=== PATIENT | female | born 1935 | race Caucasian/White ===

== ENCOUNTER 2016-06-29 14:43 | Outpatient (RCR) | payer MEDICARE, OTHER ==
[2016-05-13 14:30] LABS: BASOPHILS % (AUTO) 0 % (0-10); EOSINOPHILS # (AUTO) 0.1 10^3/uL (0.0-0.3); EOSINOPHILS % (AUTO) 1 % (0-10); LYMPHOCYTES # (AUTO) 1.4 X 10^3 (1.0-4.0); LYMPHOCYTES % (AUTO) 15 % (12-44); MEAN CORPUSCULAR HEMOGLOBIN 31 PG (25-34); MEAN CORPUSCULAR HGB CONC 35 G/DL (32-36); MEAN CORPUSCULAR VOLUME 89 FL (80-99); MEAN PLATELET VOLUME 9.3 FL (7.4-10.4); MONOCYTES # (AUTO) 0.8 X 10^3 (0.0-1.0); MONOCYTES % (AUTO) 9 % (0-12); NEUTROPHILS # (AUTO) 6.8 X 10^3 (1.8-7.8); NEUTROPHILS % (AUTO) 75 % (42-75); PLATELET COUNT 277 10^3/uL (130-400); RED BLOOD COUNT 4.56 10^6/uL (4.35-5.85); RED CELL DISTRIBUTION WIDTH 13.8 % (10.0-14.5); WHITE BLOOD COUNT 9.1 10^3/uL (4.3-11.0)
[2016-05-13 15:01] LABS: ALBUMIN 3.8 G/DL (3.2-4.5); BILIRUBIN,TOTAL 0.6 MG/DL (0.1-1.0); CALCIUM 9.4 MG/DL (8.5-10.1); CREATININE SERUM 1.01 MG/DL (0.60-1.30); POTASSIUM 3.7 MMOL/L (3.6-5.0); TOTAL PROTEIN 6.4 G/DL (6.4-8.2)
[2016-05-16 17:23] LABS: THYROID STIMULATING HORMONE 0.37 UIU/ML (0.35-4.94)
[~2016-06-29 14:43] MED LIST: AMLO5TAB2 PO; ASP81TEC PO; ATEN50TA PO; B-12 INJECTIONS; CALTRATE 600 +1 EACH PO; CHOL200041 PO; CHOL5000 PO; CNC1KV IJ; DICY10CA12 PO; ENOX30DI9 SQ; FLUC200T45 PO; GABA-486 PO; GUAI-557 PO; HYDR-707 PO; IRBE75TA10 PO; MESA1.2T PO; METO-272 PO; MSL400TEC PO; MULT-142 PO; MULT1CAP27 PO; RANI150T11 PO; RANI150T90 PO; RANI300T4 PO; TRAM50TA2 PO
[2016-06-29 14:52] LABS: BASOPHILS # (AUTO) 0.1 10^3/uL (0.0-0.1); BASOPHILS % (AUTO) 1 % (0-10); EOSINOPHILS # (AUTO) 0.6 10^3/uL (0.0-0.3); EOSINOPHILS % (AUTO) 9 % (0-10); LYMPHOCYTES # (AUTO) 1.4 X 10^3 (1.0-4.0); LYMPHOCYTES % (AUTO) 23 % (12-44); MEAN CORPUSCULAR HEMOGLOBIN 32 PG (25-34); MEAN CORPUSCULAR HGB CONC 34 G/DL (32-36); MEAN CORPUSCULAR VOLUME 94 FL (80-99); MEAN PLATELET VOLUME 9.2 FL (7.4-10.4); MONOCYTES # (AUTO) 0.7 X 10^3 (0.0-1.0); MONOCYTES % (AUTO) 12 % (0-12); NEUTROPHILS # (AUTO) 3.4 X 10^3 (1.8-7.8); NEUTROPHILS % (AUTO) 55 % (42-75); PLATELET COUNT 275 10^3/uL (130-400); RED BLOOD COUNT 4.11 10^6/uL (4.35-5.85); WHITE BLOOD COUNT 6.2 10^3/uL (4.3-11.0)
[2016-06-29 15:15] LABS: ALBUMIN 3.6 G/DL (3.2-4.5); BILIRUBIN,TOTAL 0.4 MG/DL (0.1-1.0); CALCIUM 9.6 MG/DL (8.5-10.1); CREATININE SERUM 1.15 MG/DL (0.60-1.30); POTASSIUM 4.7 MMOL/L (3.6-5.0)
== END 2016-08-11 | disposition home or self-care (01) ==
LOC: ONC 14:43
PROVIDERS: ATTEND Internal Medicine Hematology & Oncology
DX: C50.812 Malignant neoplasm of overlapping sites of left female breast (principal); M81.0 Age-related osteoporosis without current pathological fracture; E53.8 Deficiency of other specified B group vitamins; I10 Essential (primary) hypertension; E78.5 Hyperlipidemia, unspecified; M19.90 Unspecified osteoarthritis, unspecified site; Z79.899 Other long term (current) drug therapy
CPT/HCPCS: 36415; 80053; 84439; 84443; 85025; 99213; 99214

== ENCOUNTER 2016-10-12 10:32 | Outpatient (RCR) | payer MEDICARE, OTHER ==
--- OUTSIDE RECORDS SUMMARY | 2016-10-12 10:35 | XMS REPORT | Continuity of Care Document ---
Author Author [facility] Organization [facility] Address Unknown Phone Unavailable Care Team Providers Care Data Operations Leader Name Role Phone BREA LUCAS MD PCP Insurance Providers Payer Name Policy Number Subscriber Name Relationship [employer] [id number] Michael Gifford 18 Self / Same As Patient Enter Insurance Name [id number] Michael Gifford 18 Self / Same As Patient Advance Directives Directive Response Recorded Date/Time Advance Directives No 06/14/16 4:00pm Health Care Power of Steel Shot Header Operator No 06/14/16 4:00pm Organ Donor No 06/14/16 4:00pm Resuscitation Status Full Code 06/14/16 4:00pm Chief Complaint and Reason for Visit Chief Complaint LEFT BREAST CANCER Reason for Visit Radicular pain of right lower extremity Problems Active Problems Medical Problem Onset Date Status Acute exacerbation of chronic low back pain Unknown Acute Breast cancer, left Unknown Acute Radicular pain of right lower extremity Unknown Acute Medications Current Home Medications Medication Dose Units Route Directions Days/Qty Instructions Start Date Calcium Carbonate/Vitamin D3 1 Each 1 Tab Oral Daily 12/03/11 Metoprolol Succinate 50 Mg 50 Mg Oral Daily 11/19/15 Ranitidine Hcl 150 Mg 150 Mg Oral Twice A Day 11/19/15 Irbesartan 75 Mg 75 Mg Oral Daily 11/19/15 Cyanocobalamin 1,000 Mcg/Ml 1,000 Mcg Injection Monthly 11/19/15 Cholecalciferol (Vitamin D3) 5,000 Unit 5,000 Unit Oral Every Other Day 11/19/15 Guaifenesin/Dextromethorphan 118 Ml 2 Tsp Oral Bedtime 11/19/15 Gabapentin 100 Mg 100 Mg Oral Bedtime 11/19/15 Multivitamin W-Minerals/Lutein 1 Each 1 Tab Oral Twice A Day Tramadol Hcl 50 Mg 50 Mg Oral Every 12 Hours as needed for Pain 20 04/23 Enoxaparin Sodium 30 Mg/0.3 Ml 30 Mg Sub-Q Daily 14 06/16/16 Past Home Medications Medication Directions Ordered Status Aspirin 81 Mg Tabec, 81 Mg Oral Daily 12/03/11 Discontinued Ranitidine Hcl 300 Mg Tablet, 150 Mg Oral Daily 12/03/11 Discontinued [B-12 Injections] , W4sivyl 12/03/11 Discontinued Multivitamins 1 Each Capsule, 1 Each Oral Daily 12/03/11 Discontinued Cholecalciferol (Vitamin D3) 2,000 Unit Tablet, 5000 Unit Oral Daily Discontinued Atenolol 50 Mg Tablet, 1 Each Oral Daily 12/03/11 Discontinued Amlodipine Besylate (Norvasc 5 Mg) 5 Mg Tablet, 5 Mg Oral Daily 12/03/11 Discontinued Mesalamine 1.2 Gm Tablet.dr, 1.2 Gm Oral Daily 12/03/11 Discontinued Dicyclomine Hcl 10 Mg Capsule, 10 Mg Oral Twice A Day 12/03/11 Discontinued Mesalamine 400 Mg Tab, 800 Mg Oral Three Times A Day 12/07/11 Discontinued Fluconazole 200 Mg Tablet, 2.5 Each Oral Daily 12/07/11 Discontinued Acetaminophen/Hydrocodone Bitart 1 Each Tablet, 1 Each Oral Q4hr Prn Discontinued Gabapentin 100 Mg Capsule, 100 Mg Oral Twice A Day 11/19/15 Discontinued Ranitidine Hcl (Ranitidine) 150 Mg Tablet, 150 Mg Oral Bedtime as needed for Heartburn 11/19/15 Discontinued Social History Social History Problem Response Recorded Date/Time Alcohol Use Denies Use 11/18/2015 10:45pm Recreational Drug Use No 11/18/2015 10:45pm Recent Foreign Travel No 06/14/2016 4:00pm Recent Infectious Disease Exposure No 06/14/2016 4:00pm Smoking Status Never a Smoker 06/14/2016 4:00pm Recent Hopitalizations No 06/14/2016 4:00pm Query Response Start Date Stop Date Smoking Status Never a Smoker Hospital Discharge Instructions Patient Instructions Physician Instructions New, Converted or Re-Newed RX: RX on Chart Plan of Care/Instructions/FU: Home health to help with changing the dressing with fluffy gauze every other day. Lovenox 30 mg subcut daily for 2 weeks. Drain care teaching. My nurse will call to arrange f/U Activity as Tolerated: Yes Discharge Diet: No Restrictions Care Plan Patient Instructions:: Home health to help with changing the dressing with fluffy gauze everyother day. Lovenox 30 mg subcut daily for 2 weeks. Drain care teaching. Mynurse will call to arrange f/U Plan of Care Discharge Date 06/16/16 4:01pm Disposition IP-HIM TO CODE Instructions/Education Provided Mastectomy Prescriptions See Medication Section Referrals (Unspecified) - Reason(s) for Referral: FOLLOW UP WITH DR LUCAS ON 07/05/16 AT 10:15 (Unspecified) - Reason(s) for Referral: FOLLOW UP WITH DR BOSS ON 06/29/16 AT 2:45 Care Plan and Goals See Discharge Instructions Section Functional Status Query Response Date Recorded Patient Orientation Person Place Time Situation June 17, 2016 9:11am Comprehension Ability Understands Concepts June 15, 2016 8:00am Allergies, Adverse Reactions, Alerts Allergen Type Severity Reaction Status Last Updated meperidine HCl Allergy Unknown Active 11/18/15 Immunizations Name Given Type FLU TRIvalent 5 years - Adult 06/15/16 Administered Vital Signs Acute Vital Signs Vital Response Date/Time Temperature (Fahrenheit) 97.8 degrees F (97.6 - 99.5) 06/16/2016 3:58pm Temperature (Calculated Celsius) 36.05640 degrees C (36.4 - 37.5) 06/16/2016 8:00am Temperature Source Tympanic 06/16/2016 3:58pm Pulse Rate (adult) 69 bpm (60 - 90) 06/16/2016 3:58pm Respiratory Rate 20 bpm (12 - 24) 06/16/2016 3:58pm O2 Sat by Pulse Oximetry 97 % (88 - 100) 06/16/2016 3:58pm Blood Pressure 161/85 mm Hg 06/16/2016 3:58pm Blood Pressure Mean 110 mm Hg 06/16/2016 9:30am Pain Numeric Pain Scale 0-No Pain 06/16/2016 3:58pm Height (Feet) 5 feet 06/14/2016 4:00pm Height (Inches) 2.00 inches 06/14/2016 4:00pm Height (Calculated Centimeters) 157.243906 cm 06/14/2016 4:00pm Weight (Pounds) 136 pounds 06/14/2016 4:00pm Weight (Ounces) 9.0 oz 06/14/2016 4:00pm Weight (Calculated Grams) 01817.71 gm 06/14/2016 4:00pm Weight (Calculated Kilograms) 61.872590 kilograms 06/14/2016 4:00pm Calculated BMI 25.0 06/14/2016 4:00pm Results Laboratory Results Test Name Result Units Flags Reference Collection Date/Time Result Date/ Time Comments White Blood Count 9.1 10^3/uL 4.3-11.0 05/13/2016 2:24pm 05/13/2016 2: 38pm Red Blood Count 4.56 10^6/uL 4.35-5.85 05/13/2016 2:24pm 05/13/2016 2: 38pm Hemoglobin 14.3 G/DL 11.5-16.0 05/13/2016 2:24pm 05/13/2016 2:38pm Hematocrit 41 % 35-52 05/13/2016 2:24pm 05/13/2016 2:38pm Mean Corpuscular Volume 89 FL 80-99 05/13/2016 2:24pm 05/13/2016 2: 38pm Mean Corpuscular Hemoglobin 31 PG 25-34 05/13/2016 2:24pm 05/13/2016 2: 38pm Mean Corpuscular Hemoglobin Concent 35 G/DL 32-36 05/13/2016 2:24pm 01/2016 2:38pm Red Cell Distribution Width 13.8 % 10.0-14.5 05/13/2016 2:24pm 2015 2:38pm Platelet Count 277 10^3/uL 130-400 05/13/2016 2:24pm 05/13/2016 2:38pm Mean Platelet Volume 9.3 FL 7.4-10.4 05/13/2016 2:24pm 05/13/2016 2: 38pm Neutrophils (%) (Auto) 75 % 42-75 05/13/2016 2:24pm 05/13/2016 2:38pm Lymphocytes (%) (Auto) 15 % 12-44 05/13/2016 2:24pm 05/13/2016 2:38pm Monocytes (%) (Auto) 9 % 0-12 05/13/2016 2:24pm 05/13/2016 2:38pm Eosinophils (%) (Auto) 1 % 0-10 05/13/2016 2:24pm 05/13/2016 2:38pm Basophils (%) (Auto) 0 % 0-10 05/13/2016 2:24pm 05/13/2016 2:38pm Neutrophils # (Auto) 6.8 X 10^3 1.8-7.8 05/13/2016 2:24pm 05/13/2016 2: 38pm Lymphocytes # (Auto) 1.4 X 10^3 1.0-4.0 05/13/2016 2:24pm 05/13/2016 2: 38pm Monocytes # (Auto) 0.8 X 10^3 0.0-1.0 05/13/2016 2:24pm 05/13/2016 2: 38pm Eosinophils # (Auto) 0.1 10^3/uL 0.0-0.3 05/13/2016 2:24pm 05/13/2016 2 :38pm Basophils # (Auto) 0.0 10^3/uL 0.0-0.1 05/13/2016 2:24pm 05/13/2016 2: 38pm Sodium Level 143 MMOL/L 135-145 05/13/2016 2:30pm 05/13/2016 3:05pm Potassium Level 3.7 MMOL/L 3.6-5.0 05/13/2016 2:30pm 05/13/2016 3:05pm Chloride Level 109 MMOL/L H 98-107 05/13/2016 2:30pm 05/13/2016 3:05pm Carbon Dioxide Level 22 MMOL/L 21-32 05/13/2016 2:30pm 05/13/2016 3: 05pm Anion Gap 12 MMOL/L 5-14 05/13/2016 2:30pm 05/13/2016 3:05pm Blood Urea Nitrogen 16 MG/DL 7-18 05/13/2016 2:30pm 05/13/2016 3:05pm Creatinine 1.01 MG/DL 0.60-1.30 05/13/2016 2:30pm 05/13/2016 3:05pm BUN/Creatinine Ratio 16 05/13/2016 2:30pm 05/13/2016 3:05pm Estimat Glomerular Filtration Rate 53 05/13/2016 2:30pm 05/13/2016 3:05pm GFR INTERPRETIVE DATA UNITS FOR ESTIMATED GFR (eGFR): mL/min/1.73 M2 REFERENCE RANGE FOR ESTIMATED GFR (eGFR) eGFR NORMAL eGFR >60 MODERATELY DECREASED eGFR 30-59 SEVERLY DECREASED eGFR 15-29 KIDNEY FAILURE <15 (OR DIALYSIS) Glucose Level 96 MG/DL 70-105 05/13/2016 2:30pm 05/13/2016 3:05pm Calcium Level 9.4 MG/DL 8.5-10.1 05/13/2016 2:30pm 05/13/2016 3:05pm Total Bilirubin 0.6 MG/DL 0.1-1.0 05/13/2016 2:30pm 05/13/2016 3:05pm Alkaline Phosphatase 64 U/L 40-136 05/13/2016 2:30pm 05/13/2016 3:05pm Aspartate Amino Transf (AST/SGOT) 14 U/L 5-34 05/13/2016 2:30pm 2015 3:05pm Alanine Aminotransferase (ALT/SGPT) 23 U/L 0-55 05/13/2016 2:30pm 05/13 3:05pm Total Protein 6.4 G/DL 6.4-8.2 05/13/2016 2:30pm 05/13/2016 3:05pm Albumin 3.8 G/DL 3.2-4.5 05/13/2016 2:30pm 05/13/2016 3:05pm Thyroid Stimulating Hormone (TSH) 0.37 UIU/ML 0.35-4.94 05/13/2016 2: 30pm 05/16/2016 5:26pm Free Thyroxine 1.23 NG/DL 0.70-1.48 05/13/2016 2:30pm 05/16/2016 5: 26pm Pending Microbiology Results Procedure Source Collection Date/Time Procedures Procedure Status Date Provider(s) Modified radical mastectomy of left breast Completed 06/14/16 JOSE DELA CRUZ MD Encounters Encounter Location Arrival/Admit Date Discharge/Depart Date Attending Provider Discharged Inpatient [facility] 06/14/16 11:01am 4:01pm JOSE DELA CRUZ MD Departed Clinic [facility] 06/11/16 10:13am 06/11/16 10: 58am JOSE DELA CRUZ MD Registered Recurring [facility] 05/28/16 10:41am ELINOR BOSS MD Registered Clinic [facility] 05/25/16 1:45pm ELINOR BOSS MD Registered Clinic [facility] 05/18/16 10:08am ELINOR BOSS MD Recent Diagnosis Radicular pain of right lower extremity
[2016-10-12 11:26] LABS: BASOPHILS % (AUTO) 1 % (0-10); EOSINOPHILS # (AUTO) 0.2 10^3/uL (0.0-0.3); EOSINOPHILS % (AUTO) 3 % (0-10); LYMPHOCYTES # (AUTO) 1.3 X 10^3 (1.0-4.0); LYMPHOCYTES % (AUTO) 21 % (12-44); MEAN CORPUSCULAR HEMOGLOBIN 32 PG (25-34); MEAN CORPUSCULAR HGB CONC 35 G/DL (32-36); MEAN CORPUSCULAR VOLUME 92 FL (80-99); MEAN PLATELET VOLUME 9.2 FL (7.4-10.4); MONOCYTES # (AUTO) 0.7 X 10^3 (0.0-1.0); MONOCYTES % (AUTO) 11 % (0-12); NEUTROPHILS # (AUTO) 4.1 X 10^3 (1.8-7.8); NEUTROPHILS % (AUTO) 65 % (42-75); PLATELET COUNT 279 10^3/uL (130-400); RED BLOOD COUNT 4.18 10^6/uL (4.35-5.85); RED CELL DISTRIBUTION WIDTH 13.7 % (10.0-14.5); WHITE BLOOD COUNT 6.3 10^3/uL (4.3-11.0)
[2016-10-12 12:22] LABS: ALBUMIN 3.8 G/DL (3.2-4.5); BILIRUBIN,TOTAL 0.4 MG/DL (0.1-1.0); CALCIUM 9.7 MG/DL (8.5-10.1); CREATININE SERUM 1.08 MG/DL (0.60-1.30); POTASSIUM 4.3 MMOL/L (3.6-5.0); TOTAL PROTEIN 6.5 G/DL (6.4-8.2)
== END 2017-01-10 | disposition home or self-care (01) ==
LOC: ONC 10:32
PROVIDERS: ATTEND Internal Medicine Hematology & Oncology
DX: C50.812 Malignant neoplasm of overlapping sites of left female breast (principal); M81.0 Age-related osteoporosis without current pathological fracture; E53.8 Deficiency of other specified B group vitamins; I10 Essential (primary) hypertension; E78.5 Hyperlipidemia, unspecified; M19.90 Unspecified osteoarthritis, unspecified site; Z79.899 Other long term (current) drug therapy
CPT/HCPCS: 36415; 80053; 85025; 86300; 99213

== ENCOUNTER 2017-01-12 13:38 | Outpatient (RCR) | payer MEDICARE, OTHER ==
[2017-01-12 13:56] LABS: BASOPHILS # (AUTO) 0.1 10^3/uL (0.0-0.1); BASOPHILS % (AUTO) 1 % (0-10); EOSINOPHILS # (AUTO) 0.1 10^3/uL (0.0-0.3); EOSINOPHILS % (AUTO) 2 % (0-10); LYMPHOCYTES # (AUTO) 1.1 X 10^3 (1.0-4.0); LYMPHOCYTES % (AUTO) 20 % (12-44); MEAN CORPUSCULAR HEMOGLOBIN 32 PG (25-34); MEAN CORPUSCULAR HGB CONC 34 G/DL (32-36); MEAN CORPUSCULAR VOLUME 92 FL (80-99); MEAN PLATELET VOLUME 9.2 FL (7.4-10.4); MONOCYTES # (AUTO) 0.5 X 10^3 (0.0-1.0); MONOCYTES % (AUTO) 9 % (0-12); NEUTROPHILS # (AUTO) 3.8 X 10^3 (1.8-7.8); NEUTROPHILS % (AUTO) 68 % (42-75); PLATELET COUNT 238 10^3/uL (130-400); RED BLOOD COUNT 4.24 10^6/uL (4.35-5.85); WHITE BLOOD COUNT 5.6 10^3/uL (4.3-11.0)
[2017-01-12 14:15] LABS: ALBUMIN 3.9 G/DL (3.2-4.5); BILIRUBIN,TOTAL 0.5 MG/DL (0.1-1.0); CALCIUM 9.6 MG/DL (8.5-10.1); CREATININE SERUM 1.2 MG/DL (0.60-1.30); TOTAL PROTEIN 6.8 G/DL (6.4-8.2)
== END 2017-04-12 | disposition home or self-care (01) ==
LOC: ONC 13:38
PROVIDERS: ATTEND Internal Medicine Hematology & Oncology
DX: C50.812 Malignant neoplasm of overlapping sites of left female breast (principal); M81.0 Age-related osteoporosis without current pathological fracture; E53.8 Deficiency of other specified B group vitamins; I10 Essential (primary) hypertension; E78.5 Hyperlipidemia, unspecified; M19.90 Unspecified osteoarthritis, unspecified site; Z79.899 Other long term (current) drug therapy
CPT/HCPCS: 36415; 80053; 85025; 99213

== ENCOUNTER → 2017-01-26 | Outpatient (CLI) | payer MEDICARE, OTHER ==
[2017-01-26 10:05] LABS: CALCIUM 9.2 MG/DL (8.5-10.1); CREATININE SERUM 1.02 MG/DL (0.60-1.30); ICTERUS 0.6 (-100-1.9); POTASSIUM 3.9 MMOL/L (3.6-5.0)
== END ==
LOC: LAB 09:17
PROVIDERS: ATTEND Allergy & Immunology
DX: E78.2 Mixed hyperlipidemia (principal); E87.6 Hypokalemia
CPT/HCPCS: 36415; 80048; 80061

== ENCOUNTER → 2017-04-18 | Outpatient (CLI) | payer MEDICARE, OTHER ==
--- NOTE | 2017-04-20 14:10 | Diagnostic Imaging Report ---
EXAMINATION: Right breast diagnostic mammogram with tomography. The patient had a left mastectomy in 2016 for breast cancer. The current study was also evaluated with a Computer Aided Detection (CAD) system. INDICATION: Screening mammogram. FINDINGS: The right breast parenchyma is composed of extremely dense fibroglandular tissue. Benign-appearing calcifications are seen. There is no mass, architectural distortion, or suspicious cluster of calcifications identified. Allowing for technique and positional differences, no suspicious change is seen. IMPRESSION: No significant change. ACR BI-RADS Category 2: Benign findings. Result letter will be mailed to the patient. Note: At least 10% of breast cancer is not imaged by mammography. Dictated by: Dictated on workstation # [id number]
== END ==
LOC: RAD 11:23
PROVIDERS: ATTEND Internal Medicine Hematology & Oncology
DX: Z12.31 Encounter for screening mammogram for malignant neoplasm of breast (principal)

== ENCOUNTER → 2017-04-22 | Outpatient (CLI) | payer MEDICARE, OTHER ==
[~2017-04-22] MED LIST changes: -METO-272 PO; +METO-370 PO
--- NOTE | 2017-04-22 15:16 | Diagnostic Imaging Report ---
PROCEDURE: CT sinuses without contrast TECHNIQUE: Multiple contiguous axial images were obtained through the sinuses without the use of intravenous contrast. Coronal and sagittal reformations were then performed. INDICATION: Chronic sinusitis. FINDINGS: Noncontrasted images show polyp along the medial aspect of the antrum in the left maxillary sinus measuring 8 mm. There is some associated mucosal thickening as well along the maxillary antrum on the right. Left maxillary sinus is clear. The osteomeatal complexes are normal with patency bilaterally. Nasal septum is mildly deviated to the left. Nasal turbinates appear normal. There is minimal mucosal edema along the anterior ethmoid air cells. Posterior ethmoid air cells are clear. Sphenoid sinuses are clear. The frontal sinuses are clear. No periosteal reactive changes. IMPRESSION: Findings are consistent with inflammatory changes involving the right maxillary sinus. Dictated by: Dictated on workstation # [id number]
== END ==
LOC: RAD 14:15
PROVIDERS: ATTEND Otolaryngology Otolaryngology/Facial Plastic Surgery
DX: J32.0 Chronic maxillary sinusitis (principal)
CPT/HCPCS: 70486

== ENCOUNTER 2017-05-02 14:55 | Outpatient (RCR) | payer MEDICARE, OTHER ==
[~2017-05-02 14:55] MED LIST changes: +METO-272 PO; -METO-370 PO
[2017-05-02 15:18] LABS: BASOPHILS % (AUTO) 1 % (0-10); EOSINOPHILS # (AUTO) 0.1 10^3/uL (0.0-0.3); EOSINOPHILS % (AUTO) 2 % (0-10); LYMPHOCYTES # (AUTO) 1.3 X 10^3 (1.0-4.0); LYMPHOCYTES % (AUTO) 29 % (12-44); MEAN CORPUSCULAR HEMOGLOBIN 32 PG (25-34); MEAN CORPUSCULAR HGB CONC 34 G/DL (32-36); MEAN CORPUSCULAR VOLUME 94 FL (80-99); MEAN PLATELET VOLUME 9.3 FL (7.4-10.4); MONOCYTES # (AUTO) 0.5 X 10^3 (0.0-1.0); MONOCYTES % (AUTO) 10 % (0-12); NEUTROPHILS # (AUTO) 2.7 X 10^3 (1.8-7.8); NEUTROPHILS % (AUTO) 58 % (42-75); PLATELET COUNT 243 10^3/uL (130-400); RED BLOOD COUNT 4.16 10^6/uL (4.35-5.85); RED CELL DISTRIBUTION WIDTH 13.1 % (10.0-14.5); WHITE BLOOD COUNT 4.6 10^3/uL (4.3-11.0)
[2017-05-02 15:49] LABS: ALBUMIN 3.8 GM/DL (3.2-4.5); BILIRUBIN,TOTAL 0.4 MG/DL (0.1-1.0); CALCIUM 9.2 MG/DL (8.5-10.1); CREATININE SERUM 1.06 MG/DL (0.60-1.30); TOTAL PROTEIN 6.8 GM/DL (6.4-8.2)
== END 2017-05-07 | disposition home or self-care (01) ==
LOC: ONC 14:55
PROVIDERS: ATTEND Internal Medicine Hematology & Oncology
DX: C50.812 Malignant neoplasm of overlapping sites of left female breast (principal); M81.0 Age-related osteoporosis without current pathological fracture; E53.8 Deficiency of other specified B group vitamins; I10 Essential (primary) hypertension; E78.5 Hyperlipidemia, unspecified; M19.90 Unspecified osteoarthritis, unspecified site; Z79.899 Other long term (current) drug therapy
CPT/HCPCS: 36415; 80053; 85025; 99213

== ENCOUNTER → 2017-06-03 | Outpatient (CLI) | payer MEDICARE, OTHER ==
--- NOTE | 2017-06-03 15:47 | Diagnostic Imaging Report ---
PROCEDURE: MRI lumbar spine. TECHNIQUE: Multiplanar, multisequence MRI of the lumbar spine was performed without contrast. INDICATION: Low back pain. Lumbar spine surgery six years ago. COMPARISON: CT lumbar spine without contrast 11/18/2015. FINDINGS: There are five lumbar-type vertebral bodies. Grade 1 anterolisthesis of L5 on S1. Alignment is otherwise unremarkable. Vertebral body heights are preserved. Benign hemangioma in the L1 vertebral body. Bone marrow signal is otherwise unremarkable. No abnormal signal in the conus which terminates at L1. Normal morphology of the cauda equina. Benign-appearing cysts in the kidneys. The visualized abdominal and pelvic contents are otherwise unremarkable. L1-L2: No spinal canal, lateral recess, or neural foraminal narrowing. L2-L3: No spinal canal, lateral recess, or neural foraminal narrowing. L3-L4: Broad-based disc bulge results in mild bilateral lateral recess and spinal canal narrowing. Disc space height loss and facet arthropathy contribute to mild bilateral neural foraminal narrowing. L4-L5: Central disc protrusion only mildly narrows the lateral recesses and spinal canal. Disc space height loss and facet arthropathy result in advanced bilateral neural foraminal narrowing. L5-S1: Ligamentous hypertrophy and facet arthropathy combine with the anterolisthesis to result in mild bilateral lateral recess and spinal canal narrowing. Disc space height loss also contributes to moderate bilateral neural foraminal narrowing. IMPRESSION: 1. Spondylotic changes result in multilevel moderate and advanced neural foraminal narrowing detailed above level by level. 2. No high-grade spinal canal or lateral recess narrowing. No acute-appearing osseous findings. Dictated by: Dictated on workstation # [id number]
== END ==
LOC: RAD 13:40
PROVIDERS: ATTEND Orthopaedic Surgery
DX: M47.816 Spondylosis without myelopathy or radiculopathy, lumbar region (principal)
CPT/HCPCS: 72148

== ENCOUNTER 2017-06-15 12:35 | Outpatient (RCR) | payer MEDICARE, OTHER ==
[~2017-06-15 12:35] MED LIST changes: -METO-272 PO; +METO-370 PO
== END 2017-07-22 16:01 | disposition home or self-care (01) ==
PROVIDERS: ATTEND Orthopaedic Surgery
DX: M54.9 Dorsalgia, unspecified (principal)

== ENCOUNTER 2017-07-27 14:21 | Outpatient (RCR) | payer MEDICARE, OTHER ==
[2017-07-27 14:50] LABS: BASOPHILS % (AUTO) 1 % (0-10); EOSINOPHILS # (AUTO) 0.1 10^3/uL (0.0-0.3); EOSINOPHILS % (AUTO) 3 % (0-10); HEMATOCRIT 37 % (35-52); HEMOGLOBIN 12.9 G/DL (11.5-16.0); LYMPHOCYTES # (AUTO) 1.3 X 10^3 (1.0-4.0); LYMPHOCYTES % (AUTO) 27 % (12-44); MEAN CORPUSCULAR HEMOGLOBIN 32 PG (25-34); MEAN CORPUSCULAR HGB CONC 35 G/DL (32-36); MEAN CORPUSCULAR VOLUME 91 FL (80-99); MEAN PLATELET VOLUME 9.2 FL (7.4-10.4); MONOCYTES # (AUTO) 0.6 X 10^3 (0.0-1.0); MONOCYTES % (AUTO) 12 % (0-12); NEUTROPHILS # (AUTO) 2.7 X 10^3 (1.8-7.8); NEUTROPHILS % (AUTO) 57 % (42-75); PLATELET COUNT 210 10^3/uL (130-400); RED BLOOD COUNT 4.04 10^6/uL (4.35-5.85); RED CELL DISTRIBUTION WIDTH 12.8 % (10.0-14.5); WHITE BLOOD COUNT 4.8 10^3/uL (4.3-11.0)
[2017-07-27 15:11] LABS: ALBUMIN 3.6 GM/DL (3.2-4.5); BILIRUBIN,TOTAL 0.6 MG/DL (0.1-1.0); CALCIUM 8.6 MG/DL (8.5-10.1); CREATININE SERUM 0.95 MG/DL (0.60-1.30); TOTAL PROTEIN 6.2 GM/DL (6.4-8.2)
== END 2017-10-25 | disposition home or self-care (01) ==
LOC: ONC 14:21
PROVIDERS: ATTEND Internal Medicine Hematology & Oncology
DX: C50.812 Malignant neoplasm of overlapping sites of left female breast (principal); M81.0 Age-related osteoporosis without current pathological fracture; E53.8 Deficiency of other specified B group vitamins; I10 Essential (primary) hypertension; E78.5 Hyperlipidemia, unspecified; M19.90 Unspecified osteoarthritis, unspecified site; Z79.899 Other long term (current) drug therapy
CPT/HCPCS: 36415; 80053; 85025; 99213

== ENCOUNTER 2017-10-26 14:21 | Outpatient (RCR) | payer MEDICARE, OTHER ==
[2017-10-26 14:33] LABS: BASOPHILS # (AUTO) 0.1 10^3/uL (0.0-0.1); BASOPHILS % (AUTO) 1 % (0-10); EOSINOPHILS # (AUTO) 0.1 10^3/uL (0.0-0.3); EOSINOPHILS % (AUTO) 2 % (0-10); HEMATOCRIT 39 % (35-52); HEMOGLOBIN 13.6 G/DL (11.5-16.0); LYMPHOCYTES # (AUTO) 1.8 X 10^3 (1.0-4.0); LYMPHOCYTES % (AUTO) 29 % (12-44); MEAN CORPUSCULAR HEMOGLOBIN 33 PG (25-34); MEAN CORPUSCULAR HGB CONC 35 G/DL (32-36); MEAN CORPUSCULAR VOLUME 94 FL (80-99); MEAN PLATELET VOLUME 9.6 FL (7.4-10.4); MONOCYTES # (AUTO) 0.6 X 10^3 (0.0-1.0); MONOCYTES % (AUTO) 9 % (0-12); NEUTROPHILS # (AUTO) 3.6 X 10^3 (1.8-7.8); NEUTROPHILS % (AUTO) 58 % (42-75); PLATELET COUNT 208 10^3/uL (130-400); RED BLOOD COUNT 4.18 10^6/uL (4.35-5.85); RED CELL DISTRIBUTION WIDTH 13.3 % (10.0-14.5); WHITE BLOOD COUNT 6.2 10^3/uL (4.3-11.0)
[2017-10-26 14:56] LABS: ALBUMIN 3.9 GM/DL (3.2-4.5); BILIRUBIN,TOTAL 0.5 MG/DL (0.1-1.0); CALCIUM 9.4 MG/DL (8.5-10.1); CREATININE SERUM 1.07 MG/DL (0.60-1.30); POTASSIUM 4.2 MMOL/L (3.6-5.0); TOTAL PROTEIN 6.4 GM/DL (6.4-8.2)
== END 2018-01-24 | disposition home or self-care (01) ==
LOC: ONC 14:21
PROVIDERS: ATTEND Internal Medicine Hematology & Oncology
DX: C50.812 Malignant neoplasm of overlapping sites of left female breast (principal); M81.0 Age-related osteoporosis without current pathological fracture; E53.8 Deficiency of other specified B group vitamins; E78.5 Hyperlipidemia, unspecified; M19.90 Unspecified osteoarthritis, unspecified site; I10 Essential (primary) hypertension; Z79.899 Other long term (current) drug therapy
CPT/HCPCS: 36415; 80053; 85025; 99213

== ENCOUNTER → 2017-11-08 | Outpatient (CLI) | payer MEDICARE, OTHER ==
[~2017-11-08] MED LIST changes: +IOHEXOL 350 MG/ML 100 ML (OMNIPAQUE 350) VIAL IV ONE; +NS 250 ML (IVPB) BAG IV ONE
[2017-11-08 12:06] LABS: CREATININE SERUM 1.09 MG/DL (0.60-1.30)
--- NOTE | 2017-11-08 12:31 | Diagnostic Imaging Report ---
INDICATION: HOARSENESS/CHRONIC COUGH. COMPARISON: 03/20/2009. FINDINGS: Frontal and lateral views of the chest demonstrate normal heart size and pulmonary vascularity. The lungs are clear. There are no signs of infiltrate, pleural effusions or pneumothoraces. The visualized osseous structures show no acute abnormalities. Multiple surgical clips are noted on the left. IMPRESSION: 1. No acute process. No signs of infiltrates, effusions or pneumothoraces. Dictated by: Dictated on workstation # [id number]
--- NOTE | 2017-11-08 12:47 | Diagnostic Imaging Report ---
PROCEDURE: CT neck soft tissue with contrast. TECHNIQUE: Multiple contiguous axial images were obtained through the neck after the administration of contrast. INDICATION: Chronic cough and hoarseness. FINDINGS: There is no evidence of nasopharyngeal or oropharyngeal mass. Hypopharynx and epiglottis are unremarkable. No laryngeal lesion is detected. There is heterogeneous density throughout the thyroid gland which may be related to multinodular goiter. There is no evidence of pathologic adenopathy seen within the neck. Parotid and submandibular salivary glands are unremarkable. There is mild diffuse cervical spondylosis. IMPRESSION: Senescent findings in the neck without evidence of acute abnormality or mass. There may be multinodular goiter present. Dictated by: Dictated on workstation # [id number]
== END ==
LOC: RAD 11:17
PROVIDERS: ATTEND Otolaryngology Otolaryngology/Facial Plastic Surgery
DX: R05 Cough (principal); R49.0 Dysphonia
CPT/HCPCS: 36415; 70491; 71046; 82565; 84520

== ENCOUNTER → 2017-12-13 | Outpatient (CLI) | payer MEDICARE, OTHER ==
[~2017-12-13] MED LIST changes: -IOHEXOL 350 MG/ML 100 ML (OMNIPAQUE 350) VIAL IV ONE; -NS 250 ML (IVPB) BAG IV ONE
--- NOTE | 2017-12-13 12:38 | Diagnostic Imaging Report ---
PROCEDURE: US Thyroid. TECHNIQUE: Multiple real-time grayscale images were obtained of the thyroid in various projections. INDICATION: Multinodular goiter. There are no previous ultrasound examinations available for comparison. The CT neck exam performed on 11/08/2017 however suggested heterogeneous density of the thyroid gland. This appearance was felt to be suspicious for multinodular goiter. On this exam the thyroid gland is borderline enlarged with the right lobe measuring 5.2 x 2.0 x 1.7 cm, left lobe estimated to be 5.2 x 2.1 x 1.8 cm (normal gland size 4-5 x 2 x 2 CM or less). There are indeed multiple nodules involving both lobes of the thyroid. The largest of these nodules is in the mid superior pole of the left lobe and measures 1.2 x 1.0 x 1.0 cm This nodule has both solid and cystic components and the CT appearance of this nodule has changed when compare to the prior PET/CT exam of 05/18/2016. I do suspect that this nodule is most likely a benign process. Even so, if a tissue diagnosis is desired, an ultrasound-guided biopsy could be performed. Otherwise I would recommend that a short-term (three-month) followup thyroid ultrasound exam be obtained for continued study. IMPRESSION: The thyroid gland is borderline enlarged and there are multiple solid and cystic nodules throughout both lobes. This appearance is suggestive of a multinodular goiter. The largest of these nodules has changed somewhat in CT appearance since the previous PET/CT exam of 05/18/2016. Considerations and recommendations as above. Dictated by: Dictated on workstation # [id number]
== END ==
LOC: RAD 08:49
PROVIDERS: ATTEND Otolaryngology Otolaryngology/Facial Plastic Surgery
DX: E04.2 Nontoxic multinodular goiter (principal)
CPT/HCPCS: 76536

== ENCOUNTER → 2018-01-08 | Outpatient (CLI) | payer MEDICARE, OTHER ==
--- NOTE | 2018-01-08 18:22 | Diagnostic Imaging Report ---
INDICATION: Neck pain. COMPARISON: 11/08/2017, TECHNIQUE: Four radiographs of the cervical spine dated January 08, 2018. FINDINGS: Minimal grade 1 anterolisthesis of C4 on C5, appearing relatively stable from the prior examination given differences in technique. No new anterolisthesis or retrolisthesis. Besides endplate degenerative changes, vertebral body heights are well maintained. Minimal multilevel disc space height loss without severe disc space height loss. Multilevel anterior osteophytes. Scattered facet joint degenerative changes, greatest within the mid cervical spine. No acute fracture or dislocation. No destructive osseous process. The visualized portions of the dens are unremarkable. Lateral masses appear well seated. The prevertebral soft tissues are unremarkable, aside from vascular calcifications. IMPRESSION: No acute osseous abnormality with mild multilevel degenerative changes, as described above. Office is closed. Report was faxed to the office of Sally Abarca APRN at 6:02 p.m., by ulises. Dictated by: Dictated on workstation # [id number]
== END ==
LOC: RAD 15:40
PROVIDERS: ATTEND Nurse Practitioner Family
DX: M50.320 Other cervical disc degeneration, mid-cervical region, unspecified level (principal)
CPT/HCPCS: 72040

== ENCOUNTER → 2018-03-15 | Outpatient (CLI) | payer MEDICARE, OTHER ==
--- NOTE | 2018-03-15 13:13 | Diagnostic Imaging Report ---
PROCEDURE: US Thyroid. TECHNIQUE: Multiple real-time grayscale images were obtained of the thyroid in various projections. INDICATION: Thyroid nodules, followup. Correlation is made with prior thyroid ultrasound from 12/13/2017. FINDINGS: The right lobe of the thyroid measures 4.8 x 2.0 x 1.7 cm and the left lobe measures 4.9 x 2.0 x 1.6 cm. Both thyroid lobes are heterogeneous. The previously noted hypoechoic nodule in the upper pole left lobe is again noted measuring approximately 9 mm x 9 mm compared with 12 mm x 10 mm on prior exam. There are several hypoechoic nodules in the right lobe. A partially calcified nodule in upper pole is approximately 8 mm x 6 mm. There is a vague area of hypoechogenicity in the lower pole of right lobe approximately 9 mm x 7 mm. Numerous additional subcentimeter nodules are present on the right. IMPRESSION: Bilateral thyroid nodules suggestive of multinodular goiter. Left upper pole nodule previously seen is stable. Continued followup ultrasound could be performed to confirm stability. Dictated by: Dictated on workstation # [id number]
== END ==
LOC: RAD 12:30
PROVIDERS: ATTEND Otolaryngology Otolaryngology/Facial Plastic Surgery
DX: E04.2 Nontoxic multinodular goiter (principal)
CPT/HCPCS: 76536

== ENCOUNTER 2018-04-19 12:34 | Outpatient (RCR) | payer MEDICARE, OTHER | END 2018-05-07 | disposition home or self-care (01) | LOC: CARD 12:34 | PROVIDERS: ATTEND Internal Medicine | DX: R00.2 Palpitations (principal) | CPT/HCPCS: 93225; 93226 ==

== ENCOUNTER → 2018-04-25 | Outpatient (CLI) | payer MEDICARE, OTHER ==
--- NOTE | 2018-04-25 16:07 | Diagnostic Imaging Report ---
INDICATION: Routine screening. COMPARISON: Comparison is made with prior mammograms from 04/18/2017 and 04/15/2016. TECHNIQUE: Unilateral right 2D and 3D screening mammography was performed with computer-aided detection (CAD) system. FINDINGS: The right breast is heterogeneously dense, limiting the sensitivity of mammography. There are scattered benign-appearing calcifications throughout the right breast. No mass or malignant appearing microcalcifications are seen. The right axilla is unremarkable. IMPRESSION: No mammographic features suspicious for malignancy are identified. ACR BI-RADS Category 2: Benign findings. Result letter will be mailed to the patient. Note: At least 10% of breast cancer is not imaged by mammography. Dictated by: Dictated on workstation # [id number]
== END ==
LOC: RAD 13:12
PROVIDERS: ATTEND Internal Medicine
DX: Z12.31 Encounter for screening mammogram for malignant neoplasm of breast (principal)

== ENCOUNTER 2018-04-27 14:23 | Outpatient (RCR) | payer MEDICARE, OTHER ==
[2018-04-27 14:42] LABS: BASOPHILS % (AUTO) 1 % (0-10); EOSINOPHILS # (AUTO) 0.1 10^3/uL (0.0-0.3); EOSINOPHILS % (AUTO) 2 % (0-10); HEMATOCRIT 36 % (35-52); HEMOGLOBIN 12.6 G/DL (11.5-16.0); LYMPHOCYTES % (AUTO) 25 % (12-44); MEAN CORPUSCULAR HEMOGLOBIN 33 PG (25-34); MEAN CORPUSCULAR HGB CONC 35 G/DL (32-36); MEAN CORPUSCULAR VOLUME 92 FL (80-99); MEAN PLATELET VOLUME 9.3 FL (7.4-10.4); MONOCYTES # (AUTO) 0.4 X 10^3 (0.0-1.0); MONOCYTES % (AUTO) 11 % (0-12); NEUTROPHILS # (AUTO) 2.6 X 10^3 (1.8-7.8); NEUTROPHILS % (AUTO) 62 % (42-75); PLATELET COUNT 189 10^3/uL (130-400); RED BLOOD COUNT 3.87 10^6/uL (4.35-5.85); RED CELL DISTRIBUTION WIDTH 13.4 % (10.0-14.5); WHITE BLOOD COUNT 4.2 10^3/uL (4.3-11.0)
[2018-04-27 15:00] LABS: ALBUMIN 3.8 GM/DL (3.2-4.5); BILIRUBIN,TOTAL 0.5 MG/DL (0.1-1.0); CALCIUM 8.6 MG/DL (8.5-10.1); CREATININE SERUM 1.19 MG/DL (0.60-1.30); POTASSIUM 4.2 MMOL/L (3.6-5.0); TOTAL PROTEIN 6.2 GM/DL (6.4-8.2)
== END 2018-05-07 | disposition home or self-care (01) ==
LOC: ONC 14:23
PROVIDERS: ATTEND Internal Medicine Hematology & Oncology
DX: C50.812 Malignant neoplasm of overlapping sites of left female breast (principal); M81.0 Age-related osteoporosis without current pathological fracture; E53.8 Deficiency of other specified B group vitamins; E78.5 Hyperlipidemia, unspecified; M19.90 Unspecified osteoarthritis, unspecified site; I10 Essential (primary) hypertension; Z79.899 Other long term (current) drug therapy
CPT/HCPCS: 36415; 80053; 85025; 99213

== ENCOUNTER → 2018-05-01 | Outpatient (CLI) | payer MEDICARE, OTHER ==
--- NOTE | 2018-05-01 16:04 | Diagnostic Imaging Report ---
PROCEDURE: CT sinuses without contrast TECHNIQUE: Multiple contiguous axial images were obtained through the sinuses without the use of intravenous contrast. Coronal and sagittal reformations were then performed. INDICATION: Chronic cough and rhinorrhea. FINDINGS: There is some mucosal thickening in the right maxillary sinus. The frontal sinuses, ethmoid air cells, left maxillary sinus and sphenoid sinuses are clear. The ostiomeatal complexes are widely patent bilaterally. There are no madeline bullosa. There is some mild left deviation of the nasal septum. The globes and intraorbital structures are unremarkable. The nasopharyngeal tissues are symmetric and without mass effect. Parotid glands are unremarkable. Mastoid air cells are clear. IMPRESSION: 1. Mild mucosal thickening of the right maxillary sinus. 2. Mild left deviation of the nasal septum. 3. Otherwise unremarkable CT sinus. Dictated by: Dictated on workstation # [id number]
== END ==
LOC: RAD 13:07
PROVIDERS: ATTEND Nurse Practitioner
DX: J34.89 Other specified disorders of nose and nasal sinuses (principal); J34.2 Deviated nasal septum
CPT/HCPCS: 70486

== ENCOUNTER 2018-07-20 10:06 | Outpatient (RCR) | payer MEDICARE, OTHER ==
[2018-07-20 10:21] LABS: BASOPHILS # (AUTO) 0.1 10^3/uL (0.0-0.1); BASOPHILS % (AUTO) 1 % (0-10); EOSINOPHILS # (AUTO) 0.1 10^3/uL (0.0-0.3); EOSINOPHILS % (AUTO) 2 % (0-10); HEMATOCRIT 39 % (35-52); HEMOGLOBIN 13.2 G/DL (11.5-16.0); LYMPHOCYTES # (AUTO) 1.1 X 10^3 (1.0-4.0); LYMPHOCYTES % (AUTO) 16 % (12-44); MEAN CORPUSCULAR HEMOGLOBIN 32 PG (25-34); MEAN CORPUSCULAR HGB CONC 34 G/DL (32-36); MEAN CORPUSCULAR VOLUME 94 FL (80-99); MEAN PLATELET VOLUME 9.3 FL (7.4-10.4); MONOCYTES # (AUTO) 0.7 X 10^3 (0.0-1.0); MONOCYTES % (AUTO) 11 % (0-12); NEUTROPHILS # (AUTO) 4.8 X 10^3 (1.8-7.8); NEUTROPHILS % (AUTO) 70 % (42-75); PLATELET COUNT 189 10^3/uL (130-400); RED CELL DISTRIBUTION WIDTH 12.9 % (10.0-14.5); WHITE BLOOD COUNT 6.8 10^3/uL (4.3-11.0)
[2018-07-20 10:42] LABS: ALBUMIN 3.9 GM/DL (3.2-4.5); BILIRUBIN,TOTAL 0.6 MG/DL (0.1-1.0); CALCIUM 9.4 MG/DL (8.5-10.1); CREATININE SERUM 1.3 MG/DL (0.60-1.30); POTASSIUM 3.7 MMOL/L (3.6-5.0); TOTAL PROTEIN 6.5 GM/DL (6.4-8.2)
== END 2018-10-18 | disposition home or self-care (01) ==
LOC: ONC 10:06
PROVIDERS: ATTEND Internal Medicine Hematology & Oncology
DX: C50.812 Malignant neoplasm of overlapping sites of left female breast (principal); M81.0 Age-related osteoporosis without current pathological fracture; E53.8 Deficiency of other specified B group vitamins; I10 Essential (primary) hypertension; E78.5 Hyperlipidemia, unspecified; M19.90 Unspecified osteoarthritis, unspecified site; Z79.899 Other long term (current) drug therapy
CPT/HCPCS: 36415; 80053; 85025; 99213

== ENCOUNTER → 2018-08-31 | Outpatient (CLI) | payer MEDICARE, OTHER ==
--- NOTE | 2018-08-31 13:40 | Diagnostic Imaging Report ---
PROCEDURE: US Non-ob pelvis comp/trans. TECHNIQUE: Multiple realtime grayscale images were obtained of the pelvis in various projections endovaginally. Transabdominal imaging was also performed. INDICATION: Long-term tamoxifen use. Uterus measures 7.9 x 5.6 x 5.9 cm. Endometrium is thickened at 17 mm. There is a fibroid in the fundus of the uterus measuring approximately 3.6 cm. There are multiple cystic changes identified in the endometrium. Ovaries could not be visualized. No adnexal mass or free fluid is seen. IMPRESSION: 1. Endometrial thickening at 17 mm with multicystic changes, as described. 2. Nonvisualized ovaries. Dictated by: Dictated on workstation # [id number]
== END ==
LOC: RAD 12:30
PROVIDERS: ATTEND Obstetrics & Gynecology
DX: N85.00 Endometrial hyperplasia, unspecified (principal); Z79.810 Long term (current) use of selective estrogen receptor modulators (SERMs); Z78.0 Asymptomatic menopausal state
CPT/HCPCS: 76830; 76856

== ENCOUNTER → 2018-10-17 | Outpatient (CLI) | payer MEDICARE, OTHER ==
--- NOTE | 2018-10-17 12:44 | Diagnostic Imaging Report ---
PROCEDURE: US Thyroid. TECHNIQUE: Multiple real-time grayscale images were obtained of the thyroid in various projections. INDICATION: Multinodular goiter. COMPARISON: Comparison is made with prior thyroid ultrasound from 03/15/2018. FINDINGS: The right lobe of the thyroid measures 5.0 x 2.0 x 1.9 cm and the left lobe measures 4.7 x 1.9 x 1.4 cm. Isthmus is 5 mm in thickness. Parenchymal heterogeneity is again seen. Hypoechoic nodule upper pole left lobe similar in size approximately 10 mm x 8 mm. Previously noted nodule with some calcification in the right lobe upper pole compared with approximate 8 mm x 6 mm on prior. Circumscribed hypoechoic nodule in the right lobe inferiorly is similar in size approximately 8 mm x 10 mm. IMPRESSION: Overall fairly stable thyroid ultrasound when compared with study from 03/15/2018 apart from very slight increase in size of a partially calcified nodule in the upper pole of the right lobe. Dictated by: Dictated on workstation # [id number]
== END ==
LOC: RAD 10:46
PROVIDERS: ATTEND Otolaryngology Otolaryngology/Facial Plastic Surgery
DX: E04.2 Nontoxic multinodular goiter (principal)
CPT/HCPCS: 76536

== ENCOUNTER 2018-10-30 14:36 | Outpatient (CLI) | payer MEDICARE, OTHER ==
[~2018-10-30] VITALS: Ht 157.5 cm; Wt 55.1 kg
[2018-10-30] MEDS ORDERED: CHOL500061 PO (14:52)
[2018-10-30] MEDS ORDERED: ASPI-586 PO (14:52)
[2018-10-30] MEDS ORDERED: CALC200T50 PO (14:52)
[2018-10-30] MEDS ORDERED: OMEP40CA36 PO (14:52)
[2018-10-30] MEDS ORDERED: EYEL1TOW2 TP (14:52)
[2018-10-30] MEDS ORDERED: TAMO20TA2 PO (14:52)
[2018-10-30 14:57] VITALS: BP 187/84
[2018-10-30 15:49] LABS: BASOPHILS % (AUTO) 1 % (0-10); EOSINOPHILS % (AUTO) 1 % (0-10); HEMATOCRIT 35 % (35-52); HEMOGLOBIN 12.3 G/DL (11.5-16.0); LYMPHOCYTES # (AUTO) 1.2 X 10^3 (1.0-4.0); LYMPHOCYTES % (AUTO) 34 % (12-44); MEAN CORPUSCULAR HEMOGLOBIN 33 PG (25-34); MEAN CORPUSCULAR HGB CONC 35 G/DL (32-36); MEAN CORPUSCULAR VOLUME 92 FL (80-99); MEAN PLATELET VOLUME 9.6 FL (7.4-10.4); MONOCYTES # (AUTO) 0.5 X 10^3 (0.0-1.0); MONOCYTES % (AUTO) 14 % (0-12); NEUTROPHILS # (AUTO) 1.8 X 10^3 (1.8-7.8); NEUTROPHILS % (AUTO) 50 % (42-75); PLATELET COUNT 199 10^3/uL (130-400); RED CELL DISTRIBUTION WIDTH 13.1 % (10.0-14.5); WHITE BLOOD COUNT 3.6 10^3/uL (4.3-11.0)
--- NOTE | 2018-11-02 18:21 | OPERATIVE REPORT ---
DATE OF SERVICE: PREOPERATIVE DIAGNOSES: 1. An 83-year-old female with a thickened endometrial lining on ultrasound. 2. History of long-term tamoxifen use secondary to breast cancer. POSTOPERATIVE DIAGNOSES: 1. An 83-year-old female with a thickened endometrial lining on ultrasound. 2. History of long-term tamoxifen use secondary to breast cancer. PROCEDURE: D and C. SURGEON: Britta Garcia DO. ANESTHESIA: General endotracheal. ESTIMATED BLOOD LOSS: Minimal. URINE OUTPUT: 50 mL drained at the start of the procedure. FLUIDS: 500 mL of lactated Ringer's solution. FINDINGS: Atrophic vaginal mucosa with tearing of the posterior fourchette with examination. Grossly normal appearance cervix and a small amount of endometrial curetted tissue that was collected, which appears to be polypoid or polyp formation grossly on exam. SPECIMENS SENT: Endometrial curettings. INDICATIONS FOR PROCEDURE: This 83-year-old female was the patient that was sent to me from the cancer center and Dr. Pepper for evaluation of thickened endometrium after a long-term use of tamoxifen therapy. Endometrial biopsy was attempted in the office and inadequate specimen was obtained by doing so. I then decided to proceed with taking the patient to the operating room for D and C. Risks of the procedure were discussed with the patient in detail with her and her present. All of their questions were answered. Recovery timeframe was discussed as well as the fact that same day surgery and that she would go home the same day. After all her questions were answered, consent was obtained in the preoperative area and the patient was taken to the operating room. OPERATIVE REPORT IN DETAIL: Once in the operating room, general anesthesia was found to be adequate. She was placed in dorsal lithotomy position, prepped and draped in normal sterile fashion. The bladder was then drained using straight catheterization. A weighted speculum was inserted into the patient's vagina. The cervix was then easily visualized and grasped at 12 o'clock position using a long Allis clamp and then performed a paracervical block at 3 and 9 o'clock position using 0.25% Marcaine, 5 mL were injected into each site. Care was taken to aspirate before injecting. I then gently sound the uterine cavity depth, which was found to be 7 cm. I then gently dilated the cervix using Kiera dilators to allow placement of a small to medium size endometrial curette. Once this was done, I am able to introduce the endometrial curette into the endometrial cavity and in gentle fashion, I clear and curette all of the león of the intrauterine cavity and a small to moderate amount of endometrial tissue was collected, after which there was no active bleeding noted. All instruments were removed from the patient's vagina. The patient tolerated the procedure well and was sent to the recovery area in stable condition. Lap and sponge counts were correct at the end of the procedure. Instrument counts were correct as well. There was a small tear in the posterior fourchette, which is made hemostatic using silver nitrate. Job ID: [id number] DocumentID: [id number] Dictated Date: 11/02/2018 10:37:38 Cost Controller Date: 11/02/2018 18:20:16 Dictated By: BRITTA GARCIA DO
== END 2018-10-30 15:15 | disposition home or self-care (01) ==
LOC: PREOP 14:36
PROVIDERS: ATTEND Obstetrics & Gynecology
DX: Z01.812 Encounter for preprocedural laboratory examination (principal); Z11.2 Encounter for screening for other bacterial diseases; R93.89 Abnormal findings on diagnostic imaging of other specified body structures
CPT/HCPCS: 36415; 85025; 86850; 86900; 86901; 87081

== ENCOUNTER 2018-11-02 07:40 | Day surgery (SDC) | payer MEDICARE, OTHER ==
[~2018-11-02] VITALS: Ht 157.5 cm; Wt 55.1 kg
[2018-11-02] VITALS (24 sets, daily range): BP systolic 167–220; BP diastolic 75–109
[~2018-11-02 07:40] MED LIST changes: +ASPI-586 PO; +CALC200T50 PO; +CHOL500061 PO; +EYEL1TOW2 TP; +OMEP40CA36 PO; +TAMO20TA2 PO
--- OUTSIDE RECORDS SUMMARY | 2018-11-02 07:50 | XMS REPORT | Continuity of Care Document ---
Author Author [facility] Organization [facility] Address Unknown Phone Unavailable Allergies Active Description Code Type Severity Reaction Onset Reported/Identified Relationship to Patient Clinical Status Yes meperidine HCl [id number] Drug Allergy Unknown N/A 11/18/2015 Yes azathioprine [id number] Drug Allergy Unknown UNABLE TO REMEM 10/30/2018 Medications There is no data. Problems Date Dx Coded Attending Type Code Diagnosis Diagnosed By 12/07/2010 Ot 530.11 REFLUX ESOPHAGITIS 06/01/2011 Ot 401.9 HYPERTENSION NOS 06/01/2011 Ot 534.90 GASTROJEJUNAL ULCER NOS 06/01/2011 Ot 556.1 ULCERATIVE ILEOCOLITIS 06/01/2011 Ot 562.10 DIVERTICULOSIS COLON (W/O MENT OF HEMORR 06/01/2011 Ot V58.69 OTH MED,LT, CURRENT USE 12/07/2011 Ot 785.1 PALPITATIONS 09/17/2012 Ot 785.1 PALPITATIONS 06/21/2014 LANCE WEI, BREA Randle Ot 288.50 02/10/2015 SHIELA GOLDEN MD Ot 272.4 02/10/2015 SHIELA GOLDEN MD Ot 401.9 02/10/2015 SHIELA GOLDEN MD Ot 433.10 02/10/2015 SHIELA GOLDEN MD Ot 785.1 02/27/2015 SHIELA GOLDEN MD Ot 272.4 02/27/2015 SHIELA GOLDNE MD Ot 401.9 02/27/2015 SHIELA GOLDEN MD Ot 433.10 02/27/2015 SHIELA GOLDEN MD Ot 785.1 04/29/2015 LIVE GARCIA APRN Ot V76.12 11/18/2015 Ot 785.1 11/19/2015 AGUSTIN WILSON DO Ot E53.8 DEFICIENCY OF OTHER SPECIFIED B GROUP 11/19/2015 AGUSTIN WILSON DO Ot E55.9 VITAMIN D DEFICIENCY, UNSPECIFIED 11/19/2015 STEVE DO AGUSTIN Charlie Ot I10 ESSENTIAL (PRIMARY) HYPERTENSION 11/19/2015 STEVE DO AGUSTIN Charlie Ot I47.1 SUPRAVENTRICULAR TACHYCARDIA 11/19/2015 STEVE CALLE AGUSTIN Charlie Ot I65.29 OCCLUSION AND STENOSIS OF UNSPECIFIED CA 11/19/2015 STEVE CALLE AGUSTIN Charlie Ot M19.90 UNSPECIFIED OSTEOARTHRITIS, UNSPECIFIED 11/19/2015 STEVE DO AGUSTIN Charlie Ot M54.16 RADICULOPATHY, LUMBAR REGION 11/19/2015 STEVE DO AGUSTIN Charlie Ot M81.0 AGE-RELATED OSTEOPOROSIS W/O CURRENT PAT 11/19/2015 STEVE DO AGUSTIN Charlie Ot R73.02 IMPAIRED GLUCOSE TOLERANCE (ORAL) 11/19/2015 STEVE AGUSTIN CALLE Ot E53.8 DEFICIENCY OF OTHER SPECIFIED B GROUP 11/19/2015 STEVE DO AGUSTIN Charlie Ot E55.9 VITAMIN D DEFICIENCY, UNSPECIFIED 11/19/2015 STEVE AGUSTIN CALLE Ot I10 ESSENTIAL (PRIMARY) HYPERTENSION 11/19/2015 STEVE DO AGUSTIN Charlie Ot I47.1 SUPRAVENTRICULAR TACHYCARDIA 11/19/2015 STEVE DO AGUSTIN Charlie Ot I65.29 OCCLUSION AND STENOSIS OF UNSPECIFIED CA 11/19/2015 STEVE DO AGUSTIN Charlie Ot M19.90 UNSPECIFIED OSTEOARTHRITIS, UNSPECIFIED 11/19/2015 STEVE DO AGUSTIN Charlie Ot M54.16 RADICULOPATHY, LUMBAR REGION 11/19/2015 STEVE CALLE AGUSTIN Charlie Ot M81.0 AGE-RELATED OSTEOPOROSIS W/O CURRENT PAT 11/19/2015 AGUSTIN WILSON DO Ot R73.02 IMPAIRED GLUCOSE TOLERANCE (ORAL) 04/16/2016 BREA LUCAS MD Ot N64.9 DISORDER OF BREAST, UNSPECIFIED 04/16/2016 BREA LUCAS MD Ot N64.9 DISORDER OF BREAST, UNSPECIFIED 04/16/2016 BREA LUCAS MD Ot N64.9 DISORDER OF BREAST, UNSPECIFIED 04/22/2016 BREA LUCAS MD Ot N63 UNSPECIFIED LUMP IN BREAST 04/23/2016 BREA LUCAS MD Ot N63 UNSPECIFIED LUMP IN BREAST 04/23/2016 BREA LUCAS MD Ot N63 UNSPECIFIED LUMP IN BREAST 05/06/2016 BREA LUCAS MD Ot N64.9 DISORDER OF BREAST, UNSPECIFIED 05/10/2016 Ot 555.9 REGIONAL ENTERITIS NOS 05/10/2016 Ot 569.3 RECTAL ANAL HEMORRHAGE 05/10/2016 Ot 733.00 OSTEOPOROSIS NOS 05/10/2016 Ot 785.1 PALPITATIONS 05/10/2016 Ot 786.50 CHEST PAIN NOS 05/10/2016 Ot 785.1 PALPITATIONS 05/10/2016 Ot 786.50 CHEST PAIN NOS 05/10/2016 Ot V76.12 OTH SCREEN MAMMO-MALIGN NEOPLASM OF ANDREW 05/10/2016 Ot 785.1 PALPITATIONS 05/10/2016 BREA LUCAS MD Ot 611.71 MASTODYNIA 05/10/2016 BREA LUCAS MD Ot V76.12 OTH SCREEN MAMMO-MALIGN NEOPLASM OF ANDREW 05/10/2016 FADI MORROW DO Ot 515 POSTINFLAM PULM FIBROSIS 05/10/2016 FADI MORROW DO Ot 786.2 COUGH 05/10/2016 FADI MORROW DO Ot 786.2 COUGH 05/10/2016 BREA LUCAS MD Ot 733.90 BONE CARTILAGE DIS NOS 05/10/2016 BREA LUCAS MD Ot V49.81 ASYMPT POSTMENOPAUSAL STATUS (AGE-RELATE 05/10/2016 BREA LUCAS MD Ot V82.89 SCREEN FOR OTH SPECIF CONDITIONS 05/10/2016 BREA LUCAS MD Ot V76.12 OTH SCREEN MAMMO-MALIGN NEOPLASM OF ANDREW 05/10/2016 BREA LUCAS MD Ot 288.50 LEUKOCYTOPENIA, UNSPECIFIED 05/10/2016 SHIELA GOLDEN MD Ot 272.4 HYPERLIPIDEMIA NEC/NOS 05/10/2016 SHIELA GOLDEN MD Ot 401.9 HYPERTENSION NOS 05/10/2016 SHIELA GOLDEN MD Ot 433.10 CAROTID ARTERY OCCLUSION W O CEREBRAL IN 05/10/2016 SHIELA GOLDEN MD Ot 785.1 PALPITATIONS 05/10/2016 LIVE GARCIA APRN Ot V76.12 OTH SCREEN MAMMO-MALIGN NEOPLASM OF ANDREW 05/10/2016 BREA LUCAS MD Ot N64.9 DISORDER OF BREAST, UNSPECIFIED 05/10/2016 BREA LUCAS MD Ot N63 UNSPECIFIED LUMP IN BREAST 05/10/2016 BREA LUCAS MD Ot N63 UNSPECIFIED LUMP IN BREAST 05/11/2016 BREA LUCAS MD Ot N63 UNSPECIFIED LUMP IN BREAST 05/14/2016 BREA LUCAS MD Ot N63 UNSPECIFIED LUMP IN BREAST 05/17/2016 BREA LUCAS MD Ot C50.912 MALIGNANT NEOPLASM OF UNSPECIFIED SITE O 05/17/2016 BREA LUCAS MD Ot Z17.0 ESTROGEN RECEPTOR POSITIVE STATUS [ER+] 05/18/2016 GERA WEI, ELINOR Medrano Ot C50.919 MALIGNANT NEOPLASM OF UNSP SITE OF UNSPE 05/19/2016 BREA LUCAS MD Ot C50.912 MALIGNANT NEOPLASM OF UNSPECIFIED SITE O 05/19/2016 BREA LUCAS MD Ot Z17.0 ESTROGEN RECEPTOR POSITIVE STATUS [ER+] 05/19/2016 GERA WEI, ELINOR Marcela Ot C50.919 MALIGNANT NEOPLASM OF UNSP SITE OF UNSPE 05/19/2016 ELINOR BOSS MD Ot C50.919 MALIGNANT NEOPLASM OF UNSP SITE OF UNSPE 05/25/2016 Ot 555.9 REGIONAL ENTERITIS NOS 05/25/2016 Ot 569.3 RECTAL ANAL HEMORRHAGE 05/25/2016 Ot 733.00 OSTEOPOROSIS NOS 05/25/2016 Ot 785.1 PALPITATIONS 05/25/2016 Ot 786.50 CHEST PAIN NOS 05/25/2016 Ot 785.1 PALPITATIONS 05/25/2016 Ot 786.50 CHEST PAIN NOS 05/25/2016 Ot V76.12 OTH SCREEN MAMMO-MALIGN NEOPLASM OF ANDREW 05/25/2016 Ot 785.1 PALPITATIONS 05/25/2016 BREA LUCAS MD Ot 611.71 MASTODYNIA 05/25/2016 BREA LUCAS MD Ot V76.12 OTH SCREEN MAMMO-MALIGN NEOPLASM OF ANDREW 05/25/2016 FADI MORROW DO Ot 515 POSTINFLAM PULM FIBROSIS 05/25/2016 FADI MORROW DO Ot 786.2 COUGH 05/25/2016 FADI MORROW DO Ot 786.2 COUGH 05/25/2016 BREA LUCAS MD Ot 733.90 BONE CARTILAGE DIS NOS 05/25/2016 BREA LUCAS MD Ot V49.81 ASYMPT POSTMENOPAUSAL STATUS (AGE-RELATE 05/25/2016 BREA LUCAS MD Ot V82.89 SCREEN FOR OTH SPECIF CONDITIONS 05/25/2016 BREA LUCAS MD Ot V76.12 OTH SCREEN MAMMO-MALIGN NEOPLASM OF ANDREW 05/25/2016 BREA LUCAS MD Ot 288.50 LEUKOCYTOPENIA, UNSPECIFIED 05/25/2016 SHIELA GOLDEN MD Ot 272.4 HYPERLIPIDEMIA NEC/NOS 05/25/2016 SHIELA GOLDEN MD Ot 401.9 HYPERTENSION NOS 05/25/2016 SHIELA GOLDEN MD Ot 433.10 CAROTID ARTERY OCCLUSION W O CEREBRAL IN 05/25/2016 SHIELA GOLDEN MD Ot 785.1 PALPITATIONS 05/25/2016 LIVE GARCIA APRN Ot V76.12 OTH SCREEN MAMMO-MALIGN NEOPLASM OF ANDREW 05/25/2016 BREA LUCAS MD Ot N64.9 DISORDER OF BREAST, UNSPECIFIED 05/25/2016 BREA LUCAS MD, Ot N63 UNSPECIFIED LUMP IN BREAST 05/25/2016 BREA LUCAS MD, Ot C50.912 MALIGNANT NEOPLASM OF UNSPECIFIED SITE O 05/25/2016 BREA LUCAS MD Ot Z17.0 ESTROGEN RECEPTOR POSITIVE STATUS [ER+] 05/25/2016 ELINOR BOSS MD, Ot 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 05/25/2016 ELINOR BOSS MD Ot E53.8 DEFICIENCY OF OTHER SPECIFIED B GROUP 05/25/2016 ELINOR BOSS MD Ot E78.5 HYPERLIPIDEMIA, UNSPECIFIED 05/25/2016 ELINOR BOSS MD Ot I10 ESSENTIAL (PRIMARY) HYPERTENSION 05/25/2016 ELINOR BOSS MD Ot M19.90 UNSPECIFIED OSTEOARTHRITIS, UNSPECIFIED 05/25/2016 ELINOR BOSS MD Ot M81.0 AGE-RELATED OSTEOPOROSIS W/O CURRENT PAT 05/25/2016 ELINOR BOSS MD Ot Z79.899 OTHER POLISHER EYEGLASS FRAMES (CURRENT) DRUG THERAPY 05/25/2016 ELINOR BOSS MD, Ot C50.919 MALIGNANT NEOPLASM OF UNSP SITE OF UNSPE 05/25/2016 ELINOR BOSS MD Ot Z01.810 ENCOUNTER FOR PREPROCEDURAL CARDIOVASCUL 05/26/2016 Ot 555.9 REGIONAL ENTERITIS NOS 05/26/2016 Ot 569.3 RECTAL ANAL HEMORRHAGE 05/26/2016 Ot 733.00 OSTEOPOROSIS NOS 05/26/2016 Ot 785.1 PALPITATIONS 05/26/2016 Ot 786.50 CHEST PAIN NOS 05/26/2016 Ot 785.1 PALPITATIONS 05/26/2016 Ot 786.50 CHEST PAIN NOS 05/26/2016 Ot V76.12 OTH SCREEN MAMMO-MALIGN NEOPLASM OF ANDREW 05/26/2016 Ot 785.1 PALPITATIONS 05/26/2016 BREA LUCAS MD Ot 611.71 MASTODYNIA 05/26/2016 BREA LUCAS MD Ot V76.12 OTH SCREEN MAMMO-MALIGN NEOPLASM OF ANDREW 05/26/2016 FADI MORROW DO Ot 515 POSTINFLAM PULM FIBROSIS 05/26/2016 FADI MORROW DO Ot 786.2 COUGH 05/26/2016 FADI MORROW DO Ot 786.2 COUGH 05/26/2016 BREA LUCAS MD Ot 733.90 BONE CARTILAGE DIS NOS 05/26/2016 BREA LUCAS MD Ot V49.81 ASYMPT POSTMENOPAUSAL STATUS (AGE-RELATE 05/26/2016 BREA LUCAS MD Ot V82.89 SCREEN FOR OTH SPECIF CONDITIONS 05/26/2016 BREA LUCAS MD Ot V76.12 OTH SCREEN MAMMO-MALIGN NEOPLASM OF ANDREW 05/26/2016 BREA LUCAS MD Ot 288.50 LEUKOCYTOPENIA, UNSPECIFIED 05/26/2016 SHIELA GOLDEN MD Ot 272.4 HYPERLIPIDEMIA NEC/NOS 05/26/2016 SHIELA GOLDEN MD Ot 401.9 HYPERTENSION NOS 05/26/2016 SHIELA GOLDEN MD Ot 433.10 CAROTID ARTERY OCCLUSION W O CEREBRAL IN 05/26/2016 SHIELA GOLDEN MD Ot 785.1 PALPITATIONS 05/26/2016 LIVE GARCIA APRN Ot V76.12 OTH SCREEN MAMMO-MALIGN NEOPLASM OF ANDREW 05/26/2016 BREA LUCAS MD Ot N64.9 DISORDER OF BREAST, UNSPECIFIED 05/26/2016 BREA LUCAS MD Ot N63 UNSPECIFIED LUMP IN BREAST 05/26/2016 BREA LUCAS MD, Ot C50.912 MALIGNANT NEOPLASM OF UNSPECIFIED SITE O 05/26/2016 BREA LUCAS MD Ot Z17.0 ESTROGEN RECEPTOR POSITIVE STATUS [ER+] 05/26/2016 ELINOR BOSS MD, Ot 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 05/26/2016 ELINOR BOSS MD Ot E53.8 DEFICIENCY OF OTHER SPECIFIED B GROUP 05/26/2016 ELINOR BOSS MD Ot E78.5 HYPERLIPIDEMIA, UNSPECIFIED 05/26/2016 ELINOR BOSS MD Ot I10 ESSENTIAL (PRIMARY) HYPERTENSION 05/26/2016 GERA WEI, ELINOR Medrano Ot M19.90 UNSPECIFIED OSTEOARTHRITIS, UNSPECIFIED 05/26/2016 ELINOR BOSS MD Ot M81.0 AGE-RELATED OSTEOPOROSIS W/O CURRENT PAT 05/26/2016 ELINOR BOSS MD Ot Z79.899 OTHER POLISHER EYEGLASS FRAMES (CURRENT) DRUG THERAPY 05/26/2016 ELINOR BOSS MD Ot C50.919 MALIGNANT NEOPLASM OF UNSP SITE OF UNSPE 05/26/2016 ELINOR BOSS MD Ot Z01.810 ENCOUNTER FOR PREPROCEDURAL CARDIOVASCUL 05/26/2016 ELINOR BOSS MD Ot C50.919 MALIGNANT NEOPLASM OF UNSP SITE OF UNSPE 05/26/2016 ELINOR BOSS MD Ot Z01.810 ENCOUNTER FOR PREPROCEDURAL CARDIOVASCUL 05/31/2016 ELINOR BOSS MD Ot C50.919 MALIGNANT NEOPLASM OF UNSP SITE OF UNSPE 05/31/2016 ELINOR BOSS MD Ot Z01.810 ENCOUNTER FOR PREPROCEDURAL CARDIOVASCUL 06/03/2016 BREA LUCAS MD Ot C50.912 MALIGNANT NEOPLASM OF UNSPECIFIED SITE O 06/03/2016 BREA LUCAS MD Ot Z17.0 ESTROGEN RECEPTOR POSITIVE STATUS [ER+] 06/11/2016 JOSE DE JESUS WEI, JOSE Guerra Ot C50.912 MALIGNANT NEOPLASM OF UNSPECIFIED SITE O 06/11/2016 JOSE DELA CRUZ MD Ot Z01.818 ENCOUNTER FOR OTHER PREPROCEDURAL EXAMIN 06/11/2016 JOSE DELA CRUZ MD Ot Z11.2 ENCOUNTER FOR SCREENING FOR OTHER BACTER 06/14/2016 JOSE DE JESUS WEI, JOSE Guerra Ot C50.912 MALIGNANT NEOPLASM OF UNSPECIFIED SITE O 06/14/2016 JOSE DE JESUS WEI, JOSE Guerra Ot Z01.818 ENCOUNTER FOR OTHER PREPROCEDURAL EXAMIN 06/14/2016 JOSE DELA CRUZ MD Ot Z11.2 ENCOUNTER FOR SCREENING FOR OTHER BACTER 06/15/2016 ELINOR BOSS MD Ot C50.919 MALIGNANT NEOPLASM OF UNSP SITE OF UNSPE 06/15/2016 ELINOR BOSS MD Ot C50.919 MALIGNANT NEOPLASM OF UNSP SITE OF UNSPE 06/15/2016 ELINOR BOSS MD Ot Z01.810 ENCOUNTER FOR PREPROCEDURAL CARDIOVASCUL 06/16/2016 JOSE DE JESUS WEI, JOSE Guerra Ot C50.912 MALIGNANT NEOPLASM OF UNSPECIFIED SITE O 06/16/2016 JOSE DE JESUS WEI, JOSE Guerra Ot E53.8 DEFICIENCY OF OTHER SPECIFIED B GROUP 06/16/2016 JOSE DE JESUS WEI, JOSE Guerra Ot E78.5 HYPERLIPIDEMIA, UNSPECIFIED 06/16/2016 JOSE DE JESUS WEI, JOSE Guerra Ot I10 ESSENTIAL (PRIMARY) HYPERTENSION 06/16/2016 JOSE DE JESUS WEI, JOSE Guerra Ot K50.90 CROHN'S DISEASE, UNSPECIFIED, WITHOUT CO 06/16/2016 JOSE DE JESUS WEI, JOSE Guerra Ot M19.90 UNSPECIFIED OSTEOARTHRITIS, UNSPECIFIED 06/16/2016 JOSE DELA CRUZ MD, Ot M81.0 AGE-RELATED OSTEOPOROSIS W/O CURRENT PAT 06/16/2016 JOSE DE JESUS WEI, JOSE Guerra Ot Z17.0 ESTROGEN RECEPTOR POSITIVE STATUS [ER+] 06/16/2016 JOSE DE JESUS WEI, JOSE Guerra Ot Z96.651 PRESENCE OF RIGHT ARTIFICIAL KNEE JOINT 07/07/2016 ELINOR BOSS MD Ot 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 07/07/2016 ELINOR BOSS MD Ot E53.8 DEFICIENCY OF OTHER SPECIFIED B GROUP 07/07/2016 ELINOR BOSS MD, Ot E78.5 HYPERLIPIDEMIA, UNSPECIFIED 07/07/2016 ELINOR BOSS MD Ot I10 ESSENTIAL (PRIMARY) HYPERTENSION 07/07/2016 ELINOR BOSS MD Ot M19.90 UNSPECIFIED OSTEOARTHRITIS, UNSPECIFIED 07/07/2016 ELINOR BOSS MD Ot M81.0 AGE-RELATED OSTEOPOROSIS W/O CURRENT PAT 07/07/2016 ELINOR BOSS MD Ot Z79.899 OTHER SHELTER (CURRENT) DRUG THERAPY 08/11/2016 ELINOR BOSS MD Ot 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 08/11/2016 ELINOR BOSS MD Ot E53.8 DEFICIENCY OF OTHER SPECIFIED B GROUP 08/11/2016 ELINOR BOSS MD Ot E78.5 HYPERLIPIDEMIA, UNSPECIFIED 08/11/2016 ELINOR BOSS MD Ot I10 ESSENTIAL (PRIMARY) HYPERTENSION 08/11/2016 ELINOR BOSS MD Ot M19.90 UNSPECIFIED OSTEOARTHRITIS, UNSPECIFIED 08/11/2016 ELINOR BOSS MD Ot M81.0 AGE-RELATED OSTEOPOROSIS W/O CURRENT PAT 08/11/2016 ELINOR BOSS MD Ot Z79.899 OTHER SHELTER (CURRENT) DRUG THERAPY 2016 ELINOR BOSS MD, Ot 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 2016 ELINOR BOSS MD Ot E53.8 DEFICIENCY OF OTHER SPECIFIED B GROUP 2016 ELINOR BOSS MD Ot E78.5 HYPERLIPIDEMIA, UNSPECIFIED 2016 ELINOR BOSS MD Ot I10 ESSENTIAL (PRIMARY) HYPERTENSION 2016 ELINOR BOSS MD Ot M19.90 UNSPECIFIED OSTEOARTHRITIS, UNSPECIFIED 2016 ELINOR BOSS MD Ot M81.0 AGE-RELATED OSTEOPOROSIS W/O CURRENT PAT 2016 ELINOR BOSS MD, Ot Z79.899 OTHER POLISHER EYEGLASS FRAMES (CURRENT) DRUG THERAPY 10/01/2016 ELINOR BOSS MD, Ot 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 10/01/2016 ELINOR BOSS MD, Ot E53.8 DEFICIENCY OF OTHER SPECIFIED B GROUP 10/01/2016 ELINOR BOSS MD, Ot E78.5 HYPERLIPIDEMIA, UNSPECIFIED 10/01/2016 ELINOR BOSS MD Ot I10 ESSENTIAL (PRIMARY) HYPERTENSION 10/01/2016 ELINOR BOSS MD Ot M19.90 UNSPECIFIED OSTEOARTHRITIS, UNSPECIFIED 10/01/2016 ELINOR BOSS MD Ot M81.0 AGE-RELATED OSTEOPOROSIS W/O CURRENT PAT 10/01/2016 ELINOR BOSS MD Ot Z79.899 OTHER POLISHER EYEGLASS FRAMES (CURRENT) DRUG THERAPY 10/13/2016 ELINOR BOSS MD, Ot 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 10/13/2016 ELINOR BOSS MD Ot E53.8 DEFICIENCY OF OTHER SPECIFIED B GROUP 10/13/2016 ELINOR BOSS MD Ot E78.5 HYPERLIPIDEMIA, UNSPECIFIED 10/13/2016 ELINOR BOSS MD Ot I10 ESSENTIAL (PRIMARY) HYPERTENSION 10/13/2016 ELINOR BOSS MD Ot M19.90 UNSPECIFIED OSTEOARTHRITIS, UNSPECIFIED 10/13/2016 ELINOR BOSS MD Ot M81.0 AGE-RELATED OSTEOPOROSIS W/O CURRENT PAT 10/13/2016 ELINOR BOSS MD Ot Z79.899 OTHER SHELTER (CURRENT) DRUG THERAPY 10/13/2016 ELINOR BOSS MD Ot 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 10/13/2016 ELINOR BOSS MD Ot E53.8 DEFICIENCY OF OTHER SPECIFIED B GROUP 10/13/2016 ELINOR BOSS MD Ot E78.5 HYPERLIPIDEMIA, UNSPECIFIED 10/13/2016 ELINOR BOSS MD Ot I10 ESSENTIAL (PRIMARY) HYPERTENSION 10/13/2016 ELINOR BOSS MD Ot M19.90 UNSPECIFIED OSTEOARTHRITIS, UNSPECIFIED 10/13/2016 ELINOR BOSS MD Ot M81.0 AGE-RELATED OSTEOPOROSIS W/O CURRENT PAT 10/13/2016 ELINOR BOSS MD Ot Z79.899 OTHER SHELTER (CURRENT) DRUG THERAPY 11/29/2016 ELINOR BOSS MD Ot 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 11/29/2016 ELINOR BOSS MD, Ot E53.8 DEFICIENCY OF OTHER SPECIFIED B GROUP 11/29/2016 ELINOR BOSS MD, Ot E78.5 HYPERLIPIDEMIA, UNSPECIFIED 11/29/2016 ELINOR BOSS MD Ot I10 ESSENTIAL (PRIMARY) HYPERTENSION 11/29/2016 ELINOR BOSS MD Ot M19.90 UNSPECIFIED OSTEOARTHRITIS, UNSPECIFIED 11/29/2016 ELINOR BOSS MD Ot M81.0 AGE-RELATED OSTEOPOROSIS W/O CURRENT PAT 11/29/2016 ELINOR BOSS MD Ot Z79.899 OTHER SHELTER (CURRENT) DRUG THERAPY 01/10/2017 ELINOR BOSS MD, Ot 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 01/10/2017 ELINOR BOSS MD Ot E53.8 DEFICIENCY OF OTHER SPECIFIED B GROUP 01/10/2017 ELINOR BOSS MD, Ot E78.5 HYPERLIPIDEMIA, UNSPECIFIED 01/10/2017 ELINOR BOSS MD Ot I10 ESSENTIAL (PRIMARY) HYPERTENSION 01/10/2017 ELINOR BOSS MD Ot M19.90 UNSPECIFIED OSTEOARTHRITIS, UNSPECIFIED 01/10/2017 ELINOR BOSS MD Ot M81.0 AGE-RELATED OSTEOPOROSIS W/O CURRENT PAT 01/10/2017 ELINOR BOSS MD Ot Z79.899 OTHER POLISHER EYEGLASS FRAMES (CURRENT) DRUG THERAPY 01/11/2017 ELINOR BOSS MD Ot 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 01/11/2017 ELINOR BOSS MD Ot E53.8 DEFICIENCY OF OTHER SPECIFIED B GROUP 01/11/2017 ELINOR BOSS MD Ot E78.5 HYPERLIPIDEMIA, UNSPECIFIED 01/11/2017 ELINOR BOSS MD Ot I10 ESSENTIAL (PRIMARY) HYPERTENSION 01/11/2017 ELINOR BOSS MD Ot M19.90 UNSPECIFIED OSTEOARTHRITIS, UNSPECIFIED 01/11/2017 ELINOR BOSS MD Ot M81.0 AGE-RELATED OSTEOPOROSIS W/O CURRENT PAT 01/11/2017 ELINOR BOSS MD Ot Z79.899 OTHER POLISHER EYEGLASS FRAMES (CURRENT) DRUG THERAPY 01/14/2017 ELINOR BOSS MD Ot 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 01/14/2017 ELINOR BOSS MD Ot E53.8 DEFICIENCY OF OTHER SPECIFIED B GROUP 01/14/2017 ELINOR BOSS MD Ot E78.5 HYPERLIPIDEMIA, UNSPECIFIED 01/14/2017 ELINOR BOSS MD Ot I10 ESSENTIAL (PRIMARY) HYPERTENSION 01/14/2017 ELINOR BOSS MD, Ot M19.90 UNSPECIFIED OSTEOARTHRITIS, UNSPECIFIED 01/14/2017 ELINOR BOSS MD Ot M81.0 AGE-RELATED OSTEOPOROSIS W/O CURRENT PAT 01/14/2017 ELINOR BOSS MD Ot Z79.899 OTHER POLISHER EYEGLASS FRAMES (CURRENT) DRUG THERAPY 02/16/2017 BRITTA VELEZ MD Ot E78.2 MIXED HYPERLIPIDEMIA 02/16/2017 BRITTA VELEZ MD Ot E87.6 HYPOKALEMIA 02/28/2017 ELINOR BOSS MD, Ot 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 02/28/2017 ELINOR BOSS MD Ot E53.8 DEFICIENCY OF OTHER SPECIFIED B GROUP 02/28/2017 ELINOR BOSS MD Ot E78.5 HYPERLIPIDEMIA, UNSPECIFIED 02/28/2017 ELINOR BOSS MD Ot I10 ESSENTIAL (PRIMARY) HYPERTENSION 02/28/2017 ELINOR BOSS MD Ot M19.90 UNSPECIFIED OSTEOARTHRITIS, UNSPECIFIED 02/28/2017 ELINOR BOSS MD Ot M81.0 AGE-RELATED OSTEOPOROSIS W/O CURRENT PAT 02/28/2017 ELINOR BOSS MD Ot Z79.899 OTHER SHELTER (CURRENT) DRUG THERAPY 04/01/2017 ELINOR BOSS MD Ot Z12.31 ENCNTR SCREEN MAMMOGRAM FOR MALIGNANT NE 04/12/2017 ELINOR BOSS MD Ot 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 04/12/2017 ELINOR BOSS MD Ot E53.8 DEFICIENCY OF OTHER SPECIFIED B GROUP 04/12/2017 ELINOR BOSS MD Ot E78.5 HYPERLIPIDEMIA, UNSPECIFIED 04/12/2017 ELINOR BOSS MD Ot I10 ESSENTIAL (PRIMARY) HYPERTENSION 04/12/2017 ELINOR BOSS MD Ot M19.90 UNSPECIFIED OSTEOARTHRITIS, UNSPECIFIED 04/12/2017 ELINOR BOSS MD Ot M81.0 AGE-RELATED OSTEOPOROSIS W/O CURRENT PAT 04/12/2017 ELINOR BOSS MD Ot Z79.899 OTHER POLISHER EYEGLASS FRAMES (CURRENT) DRUG THERAPY 05/03/2017 KECIA TORRES MD Ot 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 05/03/2017 KECIA TORRES MD Ot E53.8 DEFICIENCY OF OTHER SPECIFIED B GROUP 05/03/2017 KECIA TORRES MD Ot E78.5 HYPERLIPIDEMIA, UNSPECIFIED 05/03/2017 KECIA TORRES MD Ot I10 ESSENTIAL (PRIMARY) HYPERTENSION 05/03/2017 KECIA TORRES MD Ot M19.90 UNSPECIFIED OSTEOARTHRITIS, UNSPECIFIED 05/03/2017 KECIA TORRES MD Ot M81.0 AGE-RELATED OSTEOPOROSIS W/O CURRENT PAT 05/03/2017 KECIA TORRES MD Ot Z79.899 OTHER SHELTER (CURRENT) DRUG THERAPY 05/07/2017 KECIA TORRES MD Ot 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 05/07/2017 KECIA TORRES MD Ot E53.8 DEFICIENCY OF OTHER SPECIFIED B GROUP 05/07/2017 KECIA TORRES MD Ot E78.5 HYPERLIPIDEMIA, UNSPECIFIED 05/07/2017 KECIA TORRES MD Ot I10 ESSENTIAL (PRIMARY) HYPERTENSION 05/07/2017 KECIA TORRES MD Ot M19.90 UNSPECIFIED OSTEOARTHRITIS, UNSPECIFIED 05/07/2017 KECIA TORRES MD Ot M81.0 AGE-RELATED OSTEOPOROSIS W/O CURRENT PAT 05/07/2017 KECIA TORRES MD Ot Z79.899 OTHER SHELTER (CURRENT) DRUG THERAPY 05/10/2017 GERA WEI, ELINOR Medrano Ot Z12.31 ENCNTR SCREEN MAMMOGRAM FOR MALIGNANT NE 05/13/2017 SRINIVAS WEI, BRITTA Loja Ot J32.0 CHRONIC MAXILLARY SINUSITIS 06/06/2017 AGUSTIN WILSON DO M Ot M47.816 SPONDYLOSIS W/O MYELOPATHY OR RADICULOPA 06/16/2017 STEVE DO AGUSTIN Guerra Ot M54.9 DORSALGIA, UNSPECIFIED 06/27/2017 STEVE DO AGUSTIN Guerra Ot M47.816 SPONDYLOSIS W/O MYELOPATHY OR RADICULOPA 07/22/2017 AGUSTIN WILSON DO Ot M54.9 DORSALGIA, UNSPECIFIED 07/28/2017 WM ROMAN MD Ot 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 07/28/2017 WM ROMAN MD Ot E53.8 DEFICIENCY OF OTHER SPECIFIED B GROUP 07/28/2017 WM ROMAN MD Ot E78.5 HYPERLIPIDEMIA, UNSPECIFIED 07/28/2017 WM ROMAN MD Ot I10 ESSENTIAL (PRIMARY) HYPERTENSION 07/28/2017 WM ROMAN MD Ot M19.90 UNSPECIFIED OSTEOARTHRITIS, UNSPECIFIED 07/28/2017 WM ROMAN MD Ot M81.0 AGE-RELATED OSTEOPOROSIS W/O CURRENT PAT 07/28/2017 WM ROMAN MD Ot Z79.899 OTHER SHELTER (CURRENT) DRUG THERAPY 08/30/2017 WM ROMAN MD Ot 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 08/30/2017 WM ROMAN MD Ot E53.8 DEFICIENCY OF OTHER SPECIFIED B GROUP 08/30/2017 WM ROMAN MD Ot E78.5 HYPERLIPIDEMIA, UNSPECIFIED 08/30/2017 WM ROMAN MD Ot I10 ESSENTIAL (PRIMARY) HYPERTENSION 08/30/2017 WM ROMAN MD Ot M19.90 UNSPECIFIED OSTEOARTHRITIS, UNSPECIFIED 08/30/2017 WM ROMAN MD Ot M81.0 AGE-RELATED OSTEOPOROSIS W/O CURRENT PAT 08/30/2017 WM ROMAN MD Ot Z79.899 OTHER SHELTER (CURRENT) DRUG THERAPY 10/25/2017 WM ROMAN MD Ot 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 10/25/2017 WM ROMAN MD Ot E53.8 DEFICIENCY OF OTHER SPECIFIED B GROUP 10/25/2017 WM ROMAN MD Ot E78.5 HYPERLIPIDEMIA, UNSPECIFIED 10/25/2017 WM ROMAN MD Ot I10 ESSENTIAL (PRIMARY) HYPERTENSION 10/25/2017 WM ROMAN MD Ot M19.90 UNSPECIFIED OSTEOARTHRITIS, UNSPECIFIED 10/25/2017 WM ROMAN MD Ot M81.0 AGE-RELATED OSTEOPOROSIS W/O CURRENT PAT 10/25/2017 WM ROMAN MD Ot Z79.899 OTHER SHELTER (CURRENT) DRUG THERAPY 11/08/2017 Ot 785.1 PALPITATIONS 11/08/2017 BREA LUCAS MD Ot 611.71 MASTODYNIA 11/08/2017 BREA LUCAS MD Ot V76.12 OTH SCREEN MAMMO-MALIGN NEOPLASM OF ANDREW 11/08/2017 FADI MORROW DO Ot 515 POSTINFLAM PULM FIBROSIS 11/08/2017 FADI MORROW DO Ot 786.2 COUGH 11/08/2017 FADI MORROW DO Ot 786.2 COUGH 11/08/2017 BREA LUCAS MD Ot 733.90 BONE CARTILAGE DIS NOS 11/08/2017 BREA LUCAS MD Ot V49.81 ASYMPT POSTMENOPAUSAL STATUS (AGE-RELATE 11/08/2017 BREA LUCAS MD Ot V82.89 SCREEN FOR OTH SPECIF CONDITIONS 11/08/2017 BREA LUCAS MD Ot V76.12 OTH SCREEN MAMMO-MALIGN NEOPLASM OF ANDREW 11/08/2017 BREA LUCAS MD Ot 288.50 LEUKOCYTOPENIA, UNSPECIFIED 11/08/2017 SHIELA GOLDEN MD Ot 272.4 HYPERLIPIDEMIA NEC/NOS 11/08/2017 SHIELA GOLDEN MD Ot 401.9 HYPERTENSION NOS 11/08/2017 SHIELA GOLDEN MD Ot 433.10 CAROTID ARTERY OCCLUSION W O CEREBRAL IN 11/08/2017 SHIELA GOLDEN MD Ot 785.1 PALPITATIONS 11/08/2017 LIVE GARCIA APRN Ot V76.12 OTH SCREEN MAMMO-MALIGN NEOPLASM OF ANDREW 11/08/2017 BREA LUCAS MD Ot N64.9 DISORDER OF BREAST, UNSPECIFIED 11/08/2017 BREA LUCAS MD Ot N63 UNSPECIFIED LUMP IN BREAST 11/08/2017 BREA LUCAS MD Ot C50.912 MALIGNANT NEOPLASM OF UNSPECIFIED SITE O 11/08/2017 BREA LUCAS MD Ot Z17.0 ESTROGEN RECEPTOR POSITIVE STATUS [ER+] 11/08/2017 ELINOR BOSS MD Ot C50.919 MALIGNANT NEOPLASM OF UNSP SITE OF UNSPE 11/08/2017 ELINOR BOSS MD, Ot C50.919 MALIGNANT NEOPLASM OF UNSP SITE OF UNSPE 11/08/2017 ELINOR BOSS MD Ot Z01.810 ENCOUNTER FOR PREPROCEDURAL CARDIOVASCUL 11/08/2017 ELINOR BOSS MD Ot Z12.31 ENCNTR SCREEN MAMMOGRAM FOR MALIGNANT NE 11/08/2017 BRITTA VELEZ MD Ot E78.2 MIXED HYPERLIPIDEMIA 11/08/2017 BRITTA VELEZ MD Ot E87.6 HYPOKALEMIA 11/08/2017 SRINIVAS WEI, BRITTA Loja Ot J32.0 CHRONIC MAXILLARY SINUSITIS 11/08/2017 AGUSTIN WILSON DO Ot M47.816 SPONDYLOSIS W/O MYELOPATHY OR RADICULOPA 11/08/2017 KECIA TORRES MD, Ot 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 11/08/2017 KECIA TORRES MD, Ot E53.8 DEFICIENCY OF OTHER SPECIFIED B GROUP 11/08/2017 KECIA TORRES MD, Ot E78.5 HYPERLIPIDEMIA, UNSPECIFIED 11/08/2017 KECIA TORRES MD, Ot I10 ESSENTIAL (PRIMARY) HYPERTENSION 11/08/2017 KECIA TORRES MD, Ot M19.90 UNSPECIFIED OSTEOARTHRITIS, UNSPECIFIED 11/08/2017 KECIA TORRES MD, Ot M81.0 AGE-RELATED OSTEOPOROSIS W/O CURRENT PAT 11/08/2017 KECIA TORRES MD, Ot Z79.899 OTHER POLISHER EYEGLASS FRAMES (CURRENT) DRUG THERAPY 11/09/2017 SRINIVAS WEI, BRITTA P Ot R05 COUGH 11/09/2017 SRINIVAS WEI, BRITTA P Ot R49.0 DYSPHONIA 11/30/2017 SRINIVAS WEI, BRITTA P Ot R05 COUGH 11/30/2017 SRINIVAS WEI, BRITTA P Ot R49.0 DYSPHONIA 12/05/2017 KECIA TORRES MD, Ot 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 12/05/2017 KECIA TORRES MD, Ot E53.8 DEFICIENCY OF OTHER SPECIFIED B GROUP 12/05/2017 KECIA TORRES MD, Ot E78.5 HYPERLIPIDEMIA, UNSPECIFIED 12/05/2017 KECIA TORRES MD Ot I10 ESSENTIAL (PRIMARY) HYPERTENSION 12/05/2017 KECIA TORRES MD, Ot M19.90 UNSPECIFIED OSTEOARTHRITIS, UNSPECIFIED 12/05/2017 KECIA TORRES MD Ot M81.0 AGE-RELATED OSTEOPOROSIS W/O CURRENT PAT 12/05/2017 KECIA TORRES MD, Ot Z79.899 OTHER SHELTER (CURRENT) DRUG THERAPY 12/14/2017 SRINIVAS WEI, BRITTA Loja Ot E04.2 NONTOXIC MULTINODULAR GOITER 01/04/2018 SRINIVAS WEI, BRITTA Loja Ot E04.2 NONTOXIC MULTINODULAR GOITER 01/10/2018 CHALO DAY FOAM RUBBER MOLDER Ot 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, MID-CERVIC 01/10/2018 CHALO DAY FOAM RUBBER MOLDER Ot 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, MID-CERVIC 01/24/2018 KECIA TORRES MD, Ot 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 01/24/2018 KECIA TORRES MD Ot E53.8 DEFICIENCY OF OTHER SPECIFIED B GROUP 01/24/2018 KECIA TORRES MD Ot E78.5 HYPERLIPIDEMIA, UNSPECIFIED 01/24/2018 KECIA TORRES MD Ot I10 ESSENTIAL (PRIMARY) HYPERTENSION 01/24/2018 KECIA TORRES MD Ot M19.90 UNSPECIFIED OSTEOARTHRITIS, UNSPECIFIED 01/24/2018 KECIA TORRES MD Ot M81.0 AGE-RELATED OSTEOPOROSIS W/O CURRENT PAT 01/24/2018 KECIA TORRES MD, Ot Z79.899 OTHER POLISHER EYEGLASS FRAMES (CURRENT) DRUG THERAPY 01/25/2018 KECIA TORRES MD, Ot 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 01/25/2018 KECIA TORRES MD Ot E53.8 DEFICIENCY OF OTHER SPECIFIED B GROUP 01/25/2018 KECIA TORRES MD Ot E78.5 HYPERLIPIDEMIA, UNSPECIFIED 01/25/2018 KECIA TORRES MD Ot I10 ESSENTIAL (PRIMARY) HYPERTENSION 01/25/2018 KECIA TORRES MD Ot M19.90 UNSPECIFIED OSTEOARTHRITIS, UNSPECIFIED 01/25/2018 KECIA TORRES MD Ot M81.0 AGE-RELATED OSTEOPOROSIS W/O CURRENT PAT 01/25/2018 KECIA TORRES MD Ot Z79.899 OTHER SHELTER (CURRENT) DRUG THERAPY 01/30/2018 CHALO DAY FOAM RUBBER MOLDER Ot 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, MID-CERVIC 04/04/2018 SRINIVAS WEI, BRITTA Loja Ot E04.2 NONTOXIC MULTINODULAR GOITER 04/25/2018 BREA LUCAS MD Ot Z12.31 ENCNTR SCREEN MAMMOGRAM FOR MALIGNANT NE 04/26/2018 BREA LUCAS MD Ot Z12.31 ENCNTR SCREEN MAMMOGRAM FOR MALIGNANT NE 04/27/2018 BREA LUCAS MD Ot 611.71 MASTODYNIA 04/27/2018 BREA LUCAS MD Ot V76.12 OTH SCREEN MAMMO-MALIGN NEOPLASM OF ANDREW 04/27/2018 FADI MORROW DO Ot 515 POSTINFLAM PULM FIBROSIS 04/27/2018 FADI MORROW DO Ot 786.2 COUGH 04/27/2018 FADI MORROW DO Ot 786.2 COUGH 04/27/2018 BREA LUCAS MD Ot 733.90 BONE CARTILAGE DIS NOS 04/27/2018 BREA LUCAS MD Ot V49.81 ASYMPT POSTMENOPAUSAL STATUS (AGE-RELATE 04/27/2018 BREA LUCAS MD Ot V82.89 SCREEN FOR OTH SPECIF CONDITIONS 04/27/2018 BREA LUCAS MD Ot V76.12 OTH SCREEN MAMMO-MALIGN NEOPLASM OF ANDREW 04/27/2018 BREA LUCAS MD Ot 288.50 LEUKOCYTOPENIA, UNSPECIFIED 04/27/2018 SHIELA GOLDNE MD Ot 272.4 HYPERLIPIDEMIA NEC/NOS 04/27/2018 SHIELA GOLDEN MD Ot 401.9 HYPERTENSION NOS 04/27/2018 SHIELA GOLDEN MD Ot 433.10 CAROTID ARTERY OCCLUSION W O CEREBRAL IN 04/27/2018 SHIELA GOLDEN MD Ot 785.1 PALPITATIONS 04/27/2018 LIVE GARCIA APRN Ot V76.12 OTH SCREEN MAMMO-MALIGN NEOPLASM OF ANDREW 04/27/2018 BREA LUCAS MD Ot N64.9 DISORDER OF BREAST, UNSPECIFIED 04/27/2018 BREA LUCAS MD Ot N63 UNSPECIFIED LUMP IN BREAST 04/27/2018 BREA LUCAS MD, Ot C50.912 MALIGNANT NEOPLASM OF UNSPECIFIED SITE O 04/27/2018 BREA LUCAS MD Ot Z17.0 ESTROGEN RECEPTOR POSITIVE STATUS [ER+] 04/27/2018 GERA WEI, ELINOR Medrano Ot C50.919 MALIGNANT NEOPLASM OF UNSP SITE OF UNSPE 04/27/2018 ELINOR BOSS MD Ot C50.919 MALIGNANT NEOPLASM OF UNSP SITE OF UNSPE 04/27/2018 ELINOR BOSS MD Ot Z01.810 ENCOUNTER FOR PREPROCEDURAL CARDIOVASCUL 04/27/2018 ELINOR BOSS MD Ot Z12.31 ENCNTR SCREEN MAMMOGRAM FOR MALIGNANT NE 04/27/2018 BRITTA VELEZ MD Ot E78.2 MIXED HYPERLIPIDEMIA 04/27/2018 BRITTA VELEZ MD Ot E87.6 HYPOKALEMIA 04/27/2018 SRINIVAS WEI, BRITTA Loja Ot J32.0 CHRONIC MAXILLARY SINUSITIS 04/27/2018 AGUSTIN WILSON DO Ot M47.816 SPONDYLOSIS W/O MYELOPATHY OR RADICULOPA 04/27/2018 SRINIVAS WEI, BRITTA Loja Ot R05 COUGH 04/27/2018 BRITTA ESPINO MD Ot R49.0 DYSPHONIA 04/27/2018 BRITTA ESPINO MD Ot E04.2 NONTOXIC MULTINODULAR GOITER 04/27/2018 BRITTA ESPINO MD Ot E04.2 NONTOXIC MULTINODULAR GOITER 04/27/2018 CHALO DAY APRN Ot 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, MID-CERVIC 04/27/2018 KECIA TORRES MD, Ot 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 04/27/2018 KECIA TORRES MD Ot E53.8 DEFICIENCY OF OTHER SPECIFIED B GROUP 04/27/2018 KEICA TORRES MD Ot E78.5 HYPERLIPIDEMIA, UNSPECIFIED 04/27/2018 KECIA TORRES MD Ot I10 ESSENTIAL (PRIMARY) HYPERTENSION 04/27/2018 KECIA TORRES MD Ot M19.90 UNSPECIFIED OSTEOARTHRITIS, UNSPECIFIED 04/27/2018 KECIA TORRES MD Ot M81.0 AGE-RELATED OSTEOPOROSIS W/O CURRENT PAT 04/27/2018 KECIA TORRES MD Ot Z79.899 OTHER POLISHER EYEGLASS FRAMES (CURRENT) DRUG THERAPY 04/27/2018 BREA LUCAS MD Ot R00.2 PALPITATIONS 04/27/2018 BREA LUCAS MD Ot Z12.31 ENCNTR SCREEN MAMMOGRAM FOR MALIGNANT NE 05/02/2018 LIVE GARCIA APRN Ot J34.2 DEVIATED NASAL SEPTUM 05/02/2018 LIVE GARCIA APRN Ot J34.89 OTHER SPECIFIED DISORDERS OF NOSE AND NA 05/07/2018 KECIA TORRES MD Ot 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 05/07/2018 KECIA TORRES MD Ot E53.8 DEFICIENCY OF OTHER SPECIFIED B GROUP 05/07/2018 KECIA TORRES MD Ot E78.5 HYPERLIPIDEMIA, UNSPECIFIED 05/07/2018 KECIA TORRES MD Ot I10 ESSENTIAL (PRIMARY) HYPERTENSION 05/07/2018 KECIA TORRES MD Ot M19.90 UNSPECIFIED OSTEOARTHRITIS, UNSPECIFIED 05/07/2018 KECIA TORRES MD Ot M81.0 AGE-RELATED OSTEOPOROSIS W/O CURRENT PAT 05/07/2018 KECIA TORRES MD, Ot Z79.899 OTHER POLISHER EYEGLASS FRAMES (CURRENT) DRUG THERAPY 05/07/2018 BREA LUCAS MD Ot R00.2 PALPITATIONS 05/09/2018 KECIA TORRES MD Ot 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 05/09/2018 KECIA TORRES MD Ot E53.8 DEFICIENCY OF OTHER SPECIFIED B GROUP 05/09/2018 KECIA TORRES MD Ot E78.5 HYPERLIPIDEMIA, UNSPECIFIED 05/09/2018 KECIA TORRES MD Ot I10 ESSENTIAL (PRIMARY) HYPERTENSION 05/09/2018 KECIA TORRES MD Ot M19.90 UNSPECIFIED OSTEOARTHRITIS, UNSPECIFIED 05/09/2018 KECIA TORRES MD Ot M81.0 AGE-RELATED OSTEOPOROSIS W/O CURRENT PAT 05/09/2018 KECIA TORRES MD, Ot Z79.899 OTHER SHELTER (CURRENT) DRUG THERAPY 05/13/2018 BREA LUCAS MD Ot R00.2 PALPITATIONS 05/17/2018 BREA LUCAS MD Ot Z12.31 ENCNTR SCREEN MAMMOGRAM FOR MALIGNANT NE 05/23/2018 LIVE GARCIA APRN Ot J34.2 DEVIATED NASAL SEPTUM 05/23/2018 LIVE GARCIA APRN Ot J34.89 OTHER SPECIFIED DISORDERS OF NOSE AND NA 09/01/2018 FENECH DO, BRITTA S Ot N85.00 ENDOMETRIAL HYPERPLASIA, UNSPECIFIED 09/01/2018 FENECH DO, BRITTA S Ot Z78.0 ASYMPTOMATIC MENOPAUSAL STATE 09/01/2018 FENECH DO, BRITTA S Ot Z79.810 LNG TRM (CRNT) USE OF SLCTV ESTROG BRIM POUNCER 09/04/2018 KECIA TORRES MD, Ot 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 09/04/2018 KECIA TORRES MD, Ot E53.8 DEFICIENCY OF OTHER SPECIFIED B GROUP 09/04/2018 KECIA TORRES MD Ot E78.5 HYPERLIPIDEMIA, UNSPECIFIED 09/04/2018 KECIA TORRES MD, Ot I10 ESSENTIAL (PRIMARY) HYPERTENSION 09/04/2018 KECIA TORRES MD, Ot M19.90 UNSPECIFIED OSTEOARTHRITIS, UNSPECIFIED 09/04/2018 KECIA TORRES MD, Ot M81.0 AGE-RELATED OSTEOPOROSIS W/O CURRENT PAT 09/04/2018 KECIA TORRES MD, Ot Z79.899 OTHER POLISHER EYEGLASS FRAMES (CURRENT) DRUG THERAPY 09/21/2018 BRITTA GARCIA DO S Ot N85.00 ENDOMETRIAL HYPERPLASIA, UNSPECIFIED 09/21/2018 RADHA DOBRITTA S Ot Z78.0 ASYMPTOMATIC MENOPAUSAL STATE 09/21/2018 RADHA DOBRITTA S Ot Z79.810 LNG TRM (CRNT) USE OF SLCTV ESTROG BRIM POUNCER 10/18/2018 KECIA TORRES MD, Ot 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 10/18/2018 KECIA TORRES MD, Ot E53.8 DEFICIENCY OF OTHER SPECIFIED B GROUP 10/18/2018 KECIA TORRES MD, Ot E78.5 HYPERLIPIDEMIA, UNSPECIFIED 10/18/2018 KECIA TORRES MD, Ot I10 ESSENTIAL (PRIMARY) HYPERTENSION 10/18/2018 KECIA TORRES MD, Ot M19.90 UNSPECIFIED OSTEOARTHRITIS, UNSPECIFIED 10/18/2018 KECIA TORRES MD, Ot M81.0 AGE-RELATED OSTEOPOROSIS W/O CURRENT PAT 10/18/2018 KECIA TORRES MD, Ot Z79.899 OTHER POLISHER EYEGLASS FRAMES (CURRENT) DRUG THERAPY 10/18/2018 BRITTA ESPINO MD Ot E04.2 NONTOXIC MULTINODULAR GOITER 10/19/2018 KECIA TORRES MD, Ot 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 10/19/2018 KECIA TORRES MD, Ot E53.8 DEFICIENCY OF OTHER SPECIFIED B GROUP 10/19/2018 KECIA TORRES MD Ot E78.5 HYPERLIPIDEMIA, UNSPECIFIED 10/19/2018 KECIA TORRES MD Ot I10 ESSENTIAL (PRIMARY) HYPERTENSION 10/19/2018 KECIA TORRES MD, Ot M19.90 UNSPECIFIED OSTEOARTHRITIS, UNSPECIFIED 10/19/2018 KECIA TORRES MD Ot M81.0 AGE-RELATED OSTEOPOROSIS W/O CURRENT PAT 10/19/2018 KECIA TORRES MD, Ot Z79.899 OTHER SHELTER (CURRENT) DRUG THERAPY 10/23/2018 SRINIVAS WEI, BRITTA Loja Ot E04.2 NONTOXIC MULTINODULAR GOITER 10/30/2018 LANCE WEI, BREA Randle Ot R00.2 PALPITATIONS 10/30/2018 KECIA TORRES MD, Ot 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 10/30/2018 KECIA TORRES MD Ot E53.8 DEFICIENCY OF OTHER SPECIFIED B GROUP 10/30/2018 KECIA TORRES MD, Ot E78.5 HYPERLIPIDEMIA, UNSPECIFIED 10/30/2018 KECIA TORRES MD Ot I10 ESSENTIAL (PRIMARY) HYPERTENSION 10/30/2018 KECIA TORRES MD Ot M19.90 UNSPECIFIED OSTEOARTHRITIS, UNSPECIFIED 10/30/2018 KECIA TORRES MD, Ot M81.0 AGE-RELATED OSTEOPOROSIS W/O CURRENT PAT 10/30/2018 KECIA TORRES MD, Ot Z79.899 OTHER POLISHER EYEGLASS FRAMES (CURRENT) DRUG THERAPY Procedures Code Description Performed By Performed On 48K70BP RESECTION OF LEFT AXILLARY LYMPHATIC, OP 06/14/2016 [id number] RESECTION OF LEFT BREAST, OPEN APPROACH 06/14/2016 Results Test Result Range [id number] - 04/22/16 14:03 Serum or plasma urea nitrogen measurement (mass/volume) 10 mg/dL 7-18 Serum or plasma creatinine measurement (mass/volume) 0.91 mg/dL 0.60-1.30 Serum or plasma urea nitrogen/creatinine mass ratio 11 NRG Serum or plasma creatinine measurement with calculation of estimated glomerular filtration rate 59 NRG Methicillin resistant Staphylococcus aureus (MRSA) screening culture - 10:50 Methicillin resistant Staphylococcus aureus (MRSA) screening culture NEG NRG Whole blood basic metabolic panel - 01/26/17 09:32 Serum or plasma sodium measurement (moles/volume) 144 mmol/L 135-145 Serum or plasma potassium measurement (moles/volume) 3.9 mmol/L 3.6-5.0 Serum or plasma chloride measurement (moles/volume) 112 mmol/L 98-107 Carbon dioxide 24 mmol/L 21-32 Serum or plasma anion gap determination (moles/volume) 8 mmol/L 5-14 Serum or plasma urea nitrogen measurement (mass/volume) 10 mg/dL 7-18 Serum or plasma creatinine measurement (mass/volume) 1.02 mg/dL 0.60-1.30 Serum or plasma urea nitrogen/creatinine mass ratio 10 0 -20 Serum or plasma creatinine measurement with calculation of estimated glomerular filtration rate 52 NRG Serum or plasma glucose measurement (mass/volume) 91 mg/dL 70-105 Serum or plasma calcium measurement (mass/volume) 9.2 mg/dL 8.5-10.1 Lipid 1996 panel - 01/26/17 09:32 Serum or plasma triglyceride measurement (mass/volume) 134 mg/dL <150 Serum or plasma cholesterol measurement (mass/volume) 153 mg/dL < 200 Serum or plasma cholesterol in HDL measurement (mass/volume) 36 mg/ dL 40-60 Cholesterol in LDL [mass/volume] in serum or plasma by direct assay 93 mg/dL 1-129 Serum or plasma cholesterol in VLDL measurement (mass/volume) 27 mg/ dL 5-40 Serum or plasma urea nitrogen measurement (mass/volume) - 11/08/17 11:35 Serum or plasma urea nitrogen measurement (mass/volume) 10 mg/dL 7-18 Serum or plasma creatinine measurement (mass/volume) - 11/08/17 11:35 Serum or plasma creatinine measurement (mass/volume) 1.09 mg/dL 0.60-1.30 Methicillin resistant Staphylococcus aureus (MRSA) screening culture - 15:20 Methicillin resistant Staphylococcus aureus (MRSA) screening culture NEG NRG Complete blood count (CBC) with automated white blood cell (WBC) differential - 10/30/18 15:25 Blood leukocytes automated count (number/volume) 3.6 10*3/uL 4.3-11.0 Blood erythrocytes automated count (number/volume) 3.78 10*6/uL 4.35-5.85 Venous blood hemoglobin measurement (mass/volume) 12.3 g/dL 11.5-16.0 Blood hematocrit (volume fraction) 35 % 35-52 Automated erythrocyte mean corpuscular volume 92 [foz_us] 80-99 Automated erythrocyte mean corpuscular hemoglobin (mass per erythrocyte) 33 pg 25-34 Automated erythrocyte mean corpuscular hemoglobin concentration measurement ( mass/volume) 35 g/dL 32-36 Automated erythrocyte distribution width ratio 13.1 % 10.0-14.5 Automated blood platelet count (count/volume) 199 10*3/uL 130-400 Automated blood platelet mean volume measurement 9.6 [foz_us] 7.4-10.4 Automated blood neutrophils/100 leukocytes 50 % 42-75 Automated blood lymphocytes/100 leukocytes 34 % 12-44 Blood monocytes/100 leukocytes 14 % 0-12 Automated blood eosinophils/100 leukocytes 1 % 0-10 Automated blood basophils/100 leukocytes 1 % 0-10 Blood neutrophils automated count (number/volume) 1.8 10*3 1.8-7.8 Blood lymphocytes automated count (number/volume) 1.2 10*3 1.0-4.0 Blood monocytes automated count (number/volume) 0.5 10*3 0.0-1.0 Automated eosinophil count 0.0 10*3/uL 0.0-0.3 Automated blood basophil count (count/volume) 0.0 10*3/uL 0.0-0.1 Blood type T Indirect antibody screen panel - 10/30/18 15:25 ABO+Rh group AN NRG Transfusion band number TNP NRG Blood group antibody screen NEGATIVE NRG Encounters ACCT No. Visit Date/Time Discharge Status Pt. Type Provider Facility Loc./Unit Complaint [id number] 10/30/2018 14:36:00 10/30/2018 15:15:00 DIS Outpatient BRITTA GARCIA DO [facility] PREOP THICKENED ENDOMETRIUM [id number] 10/19/2018 00:11:00 10/19/2018 23:59:59 CLS Preadmit KECIA TORRES MD [facility] ONC [id number] 07/20/2018 10:06:00 10/18/2018 00:01:00 DIS Outpatient KECIA TORRES MD [facility] ONC [id number] 10/17/2018 10:46:00 10/17/2018 23:59:59 CLS Outpatient BRITTA ESPINO MD [facility] RAD MULTINODULAR GOITER E04.2 [id number] 08/31/2018 12:30:00 08/31/2018 23:59:59 CLS Outpatient BRITTA GARCIA DO [facility] RAD POST MENOPAUSAL [id number] 05/08/2018 11:00:00 05/08/2018 23:59:59 CLS Preadmit BREA LUCAS MD [facility] CARD PALPITATIONS [id number] 04/27/2018 14:23:00 05/07/2018 00:01:00 DIS Outpatient KECIA TORRES MD [facility] ONC [id number] 04/19/2018 12:34:00 05/07/2018 00:01:00 DIS Outpatient BREA LUCAS MD [facility] CARD PALPITATIONS [id number] 04/26/2018 10:49:00 04/26/2018 23:59:59 CLS Outpatient LIVE GARCIA FOAM RUBBER MOLDER [facility] RAD CHRONIC COUGH [id number] 04/25/2018 13:12:00 04/25/2018 23:59:59 CLS Outpatient BREA LUCAS MD [facility] RAD SCREENING [id number] 03/15/2018 13:00:00 03/15/2018 23:59:59 CLS Outpatient BRITTA ESPINO MD [facility] RAD FOLLOW UP THYROID US NODULES [id number] 10/26/2017 14:21:00 01/24/2018 00:01:00 DIS Outpatient KECIA TORRES MD [facility] ONC [id number] 01/08/2018 15:40:00 01/08/2018 23:59:59 CLS Outpatient CHALO DAY FOAM RUBBER MOLDER [facility] RAD M542 [id number] 12/13/2017 08:49:00 12/13/2017 23:59:59 CLS Outpatient BRITTA ESPINO MD [facility] RAD MULTINODULER GOITER [id number] 11/08/2017 11:17:00 11/08/2017 23:59:59 CLS Outpatient BRITTA ESPINO MD [facility] RAD CHRONIC COUGH [id number] 07/27/2017 14:21:00 10/25/2017 00:01:00 DIS Outpatient WM ROMAN MD [facility] ONC [id number] 06/15/2017 12:35:00 07/22/2017 16:01:00 DIS Outpatient AGUSTIN WILSON DO [facility] REHAB BACK PAIN [id number] 06/03/2017 13:40:00 06/03/2017 23:59:59 CLS Outpatient STEVE CALLEAGUSTIN [facility] RAD BACK PAIN M54.8 [id number] 05/02/2017 14:55:00 05/07/2017 00:01:00 DIS Outpatient BRIAN WEI, KECIA [facility] ONC [id number] 04/22/2017 14:15:00 04/22/2017 23:59:59 CLS Outpatient BRITTA ESPINO MD [facility] RAD CHRONIC PANSINUSITIS T32.4 [id number] 04/18/2017 11:23:00 04/18/2017 23:59:59 CLS Outpatient ELINOR BOSS MD [facility] RAD SCREENING [id number] 01/12/2017 13:38:00 04/12/2017 00:01:00 DIS Outpatient ELINOR BOSS MD [facility] ONC [id number] 01/26/2017 09:17:00 01/26/2017 23:59:59 CLS Outpatient BRITTA VELEZ MD [facility] LAB E87.6 E78.2 [id number] 10/12/2016 10:32:00 01/10/2017 00:01:00 DIS Outpatient ELINOR BOSS MD [facility] ONC [id number] 06/29/2016 14:43:00 08/11/2016 00:01:00 DIS Outpatient ELINOR BOSS MD [facility] ONC [id number] 06/14/2016 11:01:00 06/16/2016 16:01:00 DIS Inpatient JOSE DELA CRUZ MD [facility] 4TH LEFT BREAST CANCER [id number] 06/11/2016 10:13:00 06/11/2016 10:58:00 DIS Outpatient JOSE DELA CRUZ MD [facility] PREOP LEFT BREAST CANCER [id number] 05/25/2016 13:45:00 05/25/2016 23:59:59 CLS Outpatient ELINOR BOSS MD [facility] CARD PREPROCEDURAL CARDIOVASCULAR EXAM [id number] 05/18/2016 10:08:00 05/18/2016 23:59:59 CLS Outpatient ELINOR BOSS MD [facility] RAD BREAST CA [id number] 05/10/2016 07:15:00 05/10/2016 23:59:59 CLS Outpatient BREA LUCAS MD [facility] RAD NODULE LT BREAST [id number] 04/22/2016 13:54:00 04/22/2016 23:59:59 CLS Outpatient BREA LUCAS MD [facility] RAD NODULE L BREAST [id number] 04/15/2016 12:59:00 04/15/2016 23:59:59 CLS Outpatient BREA LUCAS MD [facility] RAD SCREENING [id number] 11/18/2015 22:16:00 11/19/2015 19:15:00 DIS Inpatient AGUSTIN WILSON DO [facility] 4TH ACUTE EXACERBATION OF LBP ,RADICULAR PAIN [id number] 04/07/2015 10:14:00 04/07/2015 23:59:59 CLS Outpatient LIVE GARCIA APRN [facility] RAD SCREENING [id number] 01/13/2015 08:22:00 01/13/2015 23:59:59 CLS Outpatient SHIELA GOLDEN MD [facility] CARD HTN HLE PALPITATIONS [id number] 05/30/2014 12:13:00 05/30/2014 23:59:59 CLS Outpatient BREA LUCAS MD [facility] LAB LEUKOPENIA [id number] 04/04/2014 13:47:00 04/04/2014 23:59:59 CLS Outpatient BREA LUCAS MD [facility] RAD SCREENING [id number] 11/22/2013 10:15:00 11/22/2013 23:59:59 CLS Outpatient BREA LUCAS MD [facility] RAD POST MENOPAUSAL [id number] 07/23/2013 08:30:00 07/23/2013 23:59:59 CLS Outpatient FADI MORROW DO [facility] RAD LUNG GRANULOMA [id number] 06/28/2013 13:40:00 06/28/2013 23:59:59 CLS Outpatient FADI MORROW DO [facility] RT COUGH,FATIGUE [id number] 04/03/2013 09:41:00 04/03/2013 23:59:59 CLS Outpatient BREA LUCAS MD [facility] RAD SCREENING [id number] 01/03/2013 10:10:00 01/03/2013 23:59:59 CLS Outpatient BREA LUCAS MD [facility] RAD LT BREAST PAIN [id number] 10/30/2018 14:40:00 Document Registration [id number] 11/18/2015 19:26:00 Document Registration [id number] 09/18/2012 11:00:00 Document Registration [id number] 06/21/2012 07:59:00 Document Registration [id number] 03/17/2012 09:06:00 Document Registration [id number] 12/07/2011 09:44:00 Document Registration [id number] 10/29/2011 08:50:00 Document Registration [id number] 09/06/2011 09:33:00 Document Registration [id number] 09/03/2011 10:54:00 Document Registration [id number] 06/16/2011 07:09:00 Document Registration [id number] 05/31/2011 08:25:00 Document Registration [id number] 12/07/2010 09:23:00 Document Registration [id number] 04/07/2015 22:18:11 ACT Document Registration
[2018-11-02] MEDS ORDERED: ONDANSETRON 4 MG/2 ML (SDV) Z0FRAN ONE (08:10)
[2018-11-02] MEDS ORDERED: LIDOCAINE PF 2% 5 ML (XYLOCAINE) VIAL ONE (08:10)
[2018-11-02] MEDS ORDERED: proPOfol 200 MG/20 ML (DIPRIVAN) VIAL IV ONE (08:10)
[2018-11-02] MEDS ORDERED: DEXAMETHASONE 10 MG/ML (DECADRON) 1 ML VIAL ONE (08:10)
[2018-11-02] MEDS ORDERED: SEVOFLURANE (ULTANE) 15 ML INHAL SOLN ONE (08:10)
[2018-11-02] MEDS ORDERED: fentaNYL INJECTION 100 MCG/2 ML AMP ONE (08:11)
[2018-11-02] MEDS ORDERED: LACTATED RINGERS 1,000 ML IV PRN (08:18)
--- NOTE | 2018-11-02 09:26 | Progress Note-Pre Operative ---
Pre-Operative Progress Note H&P Reviewed The H&P was reviewed, patient examined and no changes noted. Date Seen by Provider: Nov 02, 2018 Time Seen by Provider: 09:20 Date H&P Reviewed: Nov 02, 2018 Time H&P Reviewed: 09:20 Pre-Operative Diagnosis: Thickened endometrium on US, Hx of tamoxifen therapy for breast ca BRITTA GARCIA DO Nov 02, 2018 09:26
[2018-11-02] MEDS ORDERED: D5 LR IV SOLUTION 1,000 ML IV SCH (09:36)
--- NOTE | 2018-11-02 09:39 | Discharge Inst-Women's Service ---
Discharge Inst-Women's Serv Depart Medication/Instructions New, Converted or Re-Newed RX: RX on Chart Consults/Follow Up Additional Follow Up: Yes Activity Activity: Activity as Tolerated Driving Instructions: No Driving for 1 Week NO SMOKING: NO SMOKING Nothing Inside Vagina: No Douching, No [place], No Tampons Diet Discharge Diet: No Restrictions Symptoms to Report to : Bleeding Excessive, Pain Increased, Fever Over 101 Degrees F, Vaginal Bleeding Increase, Questions/Concerns For Any Problems or Questions: Contact Your Physician BRITTA GARCIA DO Nov 02, 2018 09:39
[2018-11-02] MEDS ORDERED: BUPIVACAINE 0.25% 30 ML (SENSORCAINE) VIAL ONE (09:45)
[2018-11-02] MEDS ORDERED: ONDANSETRON 4 MG/2 ML (SDV) Z0FRAN IVP PRN ×2 (09:45→10:30)
[2018-11-02] MEDS ORDERED: KETOROLAC 15 MG/ML VIAL IVP PRN (10:30)
[2018-11-02] MEDS ORDERED: morphine INJ 10 MG/ML 1ML (SYR OR VIAL) IVP ONE (10:30)
[2018-11-02] MEDS ORDERED: KETOROLAC 30 MG/ML VIAL ONE (10:43)
[2018-11-02] MEDS ORDERED: LABETALOL HCL 20 MG/4 ML VIAL IV ONE (12:45)
[2018-11-02] MEDS ORDERED: hydrALAZINE (APESOLINE) 20 MG/ML VIAL IV ONE (14:00)
[2018-11-02] MEDS ORDERED: hydrALAZINE (APESOLINE) 20 MG/ML VIAL ONE (14:02)
--- NOTE | 2018-11-02 16:30 | Progress Note-Standard ---
Standard Progress Note Progress Notes/Assess & Plan Date Seen by a Provider: Nov 02, 2018 Time Seen by a Provider: 12:00 Progress/Assessment & Plan [id number] : I was called by ARLIN Silveira in PACU re: hypertension noted throughout recovery on . I discussed this with Jordana, noting that the patient's preop blood pressure was 193/97. ARLIN Carpenter also called me re: NIBP of 214/108 and 209/101 [place] [facility] [place] talked with the patient at length, in front of her daughter and , and the patient denies any symptoms of headache, dizziness, etc. She has equal strength in all 4 extremities and ambulated with assistance to the bathroom. The patient states she sees Dr. Pina on a regular basis and her NIBP is never above 110-120 systolic. I attempted to reach Dr. Pina at his office, but due to the lunch hour, I had to make a return phone call after 1300. At 1253, the patient was given Labetalol 5mg IV. At 1300, the patient's NIBP remains elevated at 194/95. At [address] Pina and he was uncomfortable with allowing the patient to be sent home with such elevated pressures over what has been documented on recent doctor visits. I then called Dr. Jean to update him on the patient's status, discussing with him what Dr. Pina had said. Dr. Jean made a phone call to the director of professional services station air traffic control specialist, Dr. Samson, to see if the patient should be admitted for observation. The patient continues to deny any symptoms and it was noted that she withheld her Irbesartan this am. Dr. Samson gave orders to give Hydralazine 10mg IV, which was given at 1412, and to update her if the NIBP did not improve. At that time, the NIBP was 194/94. The patient's NIBP gradually came down to 167/70 over the next hour and the NIBP was called to Dr. Samson at 1515. She gave orders that the patient could be discharged to home. The patient ambulated again to the bathroom, and arrangements were made with the patient's daughter to assist the couple with discharge. OSVALDO ROBERTS CRNA Nov 02, 2018 16:30
== END 2018-11-02 16:30 | disposition home or self-care (01) ==
LOC: SDC 07:40
PROVIDERS: ATTEND Obstetrics & Gynecology
DX: R93.89 Abnormal findings on diagnostic imaging of other specified body structures (principal); N95.2 Postmenopausal atrophic vaginitis; C50.912 Malignant neoplasm of unspecified site of left female breast; I10 Essential (primary) hypertension; E78.5 Hyperlipidemia, unspecified; M81.0 Age-related osteoporosis without current pathological fracture; E53.8 Deficiency of other specified B group vitamins; K50.90 Crohn's disease, unspecified, without complications; K21.9 Gastro-esophageal reflux disease without esophagitis; Z79.82 Long term (current) use of aspirin; Z79.810 Long term (current) use of selective estrogen receptor modulators (SERMs); Z79.899 Other long term (current) drug therapy; Z78.0 Asymptomatic menopausal state
CPT/HCPCS: 36415; 86850; 86900; 86901; 94664

== ENCOUNTER 2019-01-18 13:13 | Outpatient (RCR) | payer MEDICARE, OTHER ==
[2019-01-18 13:36] LABS: BASOPHILS % (AUTO) 0 % (0-10); EOSINOPHILS % (AUTO) 0 % (0-10); HEMATOCRIT 36 % (35-52); HEMOGLOBIN 12.1 G/DL (11.5-16.0); LYMPHOCYTES # (AUTO) 1.2 X 10^3 (1.0-4.0); LYMPHOCYTES % (AUTO) 12 % (12-44); MEAN CORPUSCULAR HEMOGLOBIN 31 PG (25-34); MEAN CORPUSCULAR HGB CONC 33 G/DL (32-36); MEAN CORPUSCULAR VOLUME 94 FL (80-99); MEAN PLATELET VOLUME 9.5 FL (7.4-10.4); MONOCYTES # (AUTO) 0.9 X 10^3 (0.0-1.0); MONOCYTES % (AUTO) 9 % (0-12); NEUTROPHILS # (AUTO) 7.9 X 10^3 (1.8-7.8); NEUTROPHILS % (AUTO) 79 % (42-75); PLATELET COUNT 167 10^3/uL (130-400); RED CELL DISTRIBUTION WIDTH 12.6 % (10.0-14.5)
[2019-01-18 13:57] LABS: ALBUMIN 3.6 GM/DL (3.2-4.5); BILIRUBIN,TOTAL 0.5 MG/DL (0.1-1.0); CALCIUM 8.9 MG/DL (8.5-10.1); CREATININE SERUM 1.33 MG/DL (0.60-1.30); POTASSIUM 4.2 MMOL/L (3.6-5.0)
== END 2019-04-18 | disposition home or self-care (01) ==
LOC: ONC 13:13
PROVIDERS: ATTEND Internal Medicine Hematology & Oncology
DX: C50.812 Malignant neoplasm of overlapping sites of left female breast (principal); M81.0 Age-related osteoporosis without current pathological fracture; E53.8 Deficiency of other specified B group vitamins; I10 Essential (primary) hypertension; E78.5 Hyperlipidemia, unspecified; M47.896 Other spondylosis, lumbar region; M17.0 Bilateral primary osteoarthritis of knee; M16.0 Bilateral primary osteoarthritis of hip; Z79.810 Long term (current) use of selective estrogen receptor modulators (SERMs); Z79.899 Other long term (current) drug therapy; Z79.82 Long term (current) use of aspirin
CPT/HCPCS: 36415; 80053; 84443; 85025; 99213

== ENCOUNTER → 2019-05-02 | Outpatient (CLI) | payer MEDICARE, OTHER ==
--- NOTE | 2019-05-02 21:29 | Diagnostic Imaging Report ---
INDICATION: Routine screening. Comparison is made with prior mammogram from 04/25/2018 and 04/18/2017. Unilateral right 2-D and 3-D screening mammography was performed with CAD. The current study was also evaluated with a Computer Aided Detection (CAD) system. 3-D tomosynthesis was also performed and reviewed. The right breast remains heterogeneously dense, limiting the sensitivity of mammography. There are scattered benign calcifications in the right breast. No mass or malignant appearing microcalcifications are seen. Right axilla is unremarkable. IMPRESSION: No mammographic features suspicious for malignancy are identified. ACR BI-RADS Category 2: Benign findings. Result letter will be mailed to the patient. Note: At least 10% of breast cancer is not imaged by mammography. Dictated by: Dictated on workstation # [id number]
== END ==
LOC: RAD 09:26
PROVIDERS: ATTEND Internal Medicine Hematology & Oncology
DX: Z12.31 Encounter for screening mammogram for malignant neoplasm of breast (principal)

== ENCOUNTER 2019-07-19 12:49 | Outpatient (RCR) | payer MEDICARE, OTHER ==
[~2019-07-19 12:49] MED LIST changes: -IRBE75TA10 PO; +IRBE75TA9 PO; -METO-370 PO; +METO50TA7 PO; +OMEP40CA27 PO; -OMEP40CA36 PO; -TRAM50TA2 PO; +TRM50T PO
[2019-07-19 13:19] LABS: BASOPHILS % (AUTO) 1 % (0-10); EOSINOPHILS # (AUTO) 0.1 10^3/uL (0.0-0.3); EOSINOPHILS % (AUTO) 1 % (0-10); HEMATOCRIT 36 % (35-52); HEMOGLOBIN 12.2 G/DL (11.5-16.0); LYMPHOCYTES # (AUTO) 1.2 X 10^3 (1.0-4.0); LYMPHOCYTES % (AUTO) 25 % (12-44); MEAN CORPUSCULAR HEMOGLOBIN 31 PG (25-34); MEAN CORPUSCULAR HGB CONC 34 G/DL (32-36); MEAN CORPUSCULAR VOLUME 92 FL (80-99); MEAN PLATELET VOLUME 9.1 FL (7.4-10.4); MONOCYTES # (AUTO) 0.5 X 10^3 (0.0-1.0); MONOCYTES % (AUTO) 10 % (0-12); NEUTROPHILS % (AUTO) 63 % (42-75); PLATELET COUNT 194 10^3/uL (130-400); RED CELL DISTRIBUTION WIDTH 12.7 % (10.0-14.5); WHITE BLOOD COUNT 4.7 10^3/uL (4.3-11.0)
[2019-07-19 13:44] LABS: ALBUMIN 3.7 GM/DL (3.2-4.5); BILIRUBIN,TOTAL 0.4 MG/DL (0.1-1.0); CALCIUM 8.7 MG/DL (8.5-10.1); CREATININE SERUM 1.46 MG/DL (0.60-1.30); POTASSIUM 4.2 MMOL/L (3.6-5.0); TOTAL PROTEIN 6.2 GM/DL (6.4-8.2)
== END 2019-10-17 | disposition home or self-care (01) ==
LOC: ONC 12:49
PROVIDERS: ATTEND Internal Medicine Hematology & Oncology
DX: C50.812 Malignant neoplasm of overlapping sites of left female breast (principal); M81.0 Age-related osteoporosis without current pathological fracture; E53.8 Deficiency of other specified B group vitamins; I10 Essential (primary) hypertension; E78.5 Hyperlipidemia, unspecified; M47.896 Other spondylosis, lumbar region; M17.0 Bilateral primary osteoarthritis of knee; M16.0 Bilateral primary osteoarthritis of hip; Z79.810 Long term (current) use of selective estrogen receptor modulators (SERMs); Z79.899 Other long term (current) drug therapy; Z79.82 Long term (current) use of aspirin
CPT/HCPCS: 80053; 85025; 99213

== ENCOUNTER 2020-01-17 12:51 | Outpatient (RCR) | payer MEDICARE, OTHER ==
[2020-01-17 13:16] LABS: BASOPHILS % (AUTO) 0 % (0-10); EOSINOPHILS # (AUTO) 0.1 10^3/uL (0.0-0.3); EOSINOPHILS % (AUTO) 1 % (0-10); HEMATOCRIT 32 % (35-52); HEMOGLOBIN 10.8 G/DL (11.5-16.0); LYMPHOCYTES # (AUTO) 0.9 X 10^3 (1.0-4.0); LYMPHOCYTES % (AUTO) 21 % (12-44); MEAN CORPUSCULAR HEMOGLOBIN 31 PG (25-34); MEAN CORPUSCULAR HGB CONC 34 G/DL (32-36); MEAN CORPUSCULAR VOLUME 92 FL (80-99); MEAN PLATELET VOLUME 9.5 FL (7.4-10.4); MONOCYTES # (AUTO) 0.5 X 10^3 (0.0-1.0); MONOCYTES % (AUTO) 12 % (0-12); NEUTROPHILS % (AUTO) 66 % (42-75); PLATELET COUNT 212 10^3/uL (130-400); WHITE BLOOD COUNT 4.6 10^3/uL (4.3-11.0)
[2020-01-17 13:32] LABS: ALBUMIN 3.4 GM/DL (3.2-4.5); BILIRUBIN,TOTAL 0.4 MG/DL (0.1-1.0); CREATININE SERUM 1.21 MG/DL (0.60-1.30); TOTAL PROTEIN 6.2 GM/DL (6.4-8.2)
== END 2020-04-16 | disposition home or self-care (01) ==
LOC: ONC 12:51
PROVIDERS: ATTEND Internal Medicine Hematology & Oncology
DX: C50.812 Malignant neoplasm of overlapping sites of left female breast (principal); M81.0 Age-related osteoporosis without current pathological fracture; E53.8 Deficiency of other specified B group vitamins; I10 Essential (primary) hypertension; E78.5 Hyperlipidemia, unspecified; M47.896 Other spondylosis, lumbar region; M17.0 Bilateral primary osteoarthritis of knee; M16.0 Bilateral primary osteoarthritis of hip; Z79.810 Long term (current) use of selective estrogen receptor modulators (SERMs); Z79.899 Other long term (current) drug therapy; Z79.82 Long term (current) use of aspirin
CPT/HCPCS: 80053; 85025; G0463; 99213

== ENCOUNTER → 2020-05-12 | Outpatient (CLI) | payer MEDICARE, OTHER ==
--- NOTE | 2020-05-12 14:51 | Diagnostic Imaging Report ---
INDICATION: Routine screening. COMPARISON: 05/02/2019 and 04/25/2018. TECHNIQUE: Unilateral right 2D and 3D screening mammography was performed with CAD. FINDINGS: The right breast remains heterogeneously dense, limiting the sensitivity of mammography. There are benign calcifications in the right breast. No mass or malignant appearing microcalcifications are seen. The right axilla is unremarkable. IMPRESSION: Stable right mammogram with no mammographic features suspicious for malignancy. ACR BI-RADS Category 2: Benign findings. Result letter will be mailed to the patient. Note: At least 10% of breast cancer is not imaged by mammography. Dictated by: Dictated on workstation # [id number]
== END ==
LOC: RAD 12:28
PROVIDERS: ATTEND Internal Medicine Hematology & Oncology
DX: Z12.31 Encounter for screening mammogram for malignant neoplasm of breast (principal)
CPT/HCPCS: 77063

== ENCOUNTER 2020-06-25 18:19 | Inpatient (IN) | payer MEDICARE, OTHER ==
[~2020-06-25] VITALS: Ht 157.5 cm; Wt 55.1 kg
[2020-06-25] MEDS ORDERED: cefTRIAXone 1,000 MG IV (ROCEPHIN) VIAL ONE (18:33)
[2020-06-25] MEDS ORDERED: WATER (STERILE) FOR INJECTION 10 ML ONE (18:33)
[2020-06-25] MEDS ORDERED: LACTATED RINGERS 1,000 ML IV ONE ×2 (18:33→18:34)
[2020-06-25] MEDS ORDERED: ACETAMINOPHEN 500 MG TAB (TYLENOL) ONE (18:33)
[2020-06-25] MEDS ORDERED: NS (IVPB) 250 ML ONE (18:33)
[2020-06-25] MEDS ORDERED: AZITHROMYCIN INJECTION 500 MG/5 ML VIAL ONE (18:34)
[2020-06-25] MEDS ORDERED: cefTRIAXone FOR IV USE 1,000 MG in WATER (STERILE) FOR INJECTION 10 ML IV ONE (18:45)
[2020-06-25] MEDS ORDERED: AZITHROMYCIN INJECTION 500 MG in NS (IVPB) 250 ML IV ONE (18:45)
[2020-06-25] MEDS ORDERED: ACETAMINOPHEN 500 MG TAB (TYLENOL) PO PRN (18:45)
[2020-06-25] MEDS ORDERED: ONDANSETRON 4 MG/2 ML (SDV) Z0FRAN IV PRN ×2 (18:45→20:30)
--- NOTE | 2020-06-25 18:46 | ED General ---
General Chief Complaint: General Problems/Pain Stated Complaint: BODY ACHES, COUGH, FEVER Nursing Triage Note: Pt to ED via EMS for aches, cough, vomiting and diarrhea that began today. Pt reports COVID exposure 1.5 weeks ago. Nursing Sepsis Screen: No Definite Risk Source of Information: Patient Exam Limitations: No Limitations History of Present Illness Date Seen by Provider: Jun 25, 2020 Time Seen by Provider: 18:23 Initial Comments Patient presents ER by EMS from home with chief complaint that she's been feeling poorly for the past couple days. She's had nausea vomiting diarrhea fever chills and loose cough nonproductive. She has multiple family members around her sick with COVID 19 and influenza. She called her primary care doctor who sent her here. She does not have baseline oxygen use or pulmonary disease. She has no cardiac disease. No chest pain. She is denying pain anywhere just general body aches and spent most of the day lying in bed. She says she had a fall yesterday landing on her coccyx but denies striking her head nor loss of consciousness. She denies use of blood thinners. Says she still little tender there than opening on how she lays or sits up. She denies dysuria. EMS said that her oxygen sats were 93% on room air started her on 2 L. Allergies and Home Medications Allergies Coded Allergies: azathioprine (Verified Allergy, Unknown, UNABLE TO REMEMBER WHAT REACTION WAS, 10/30/18) meperidine HCl (Verified Allergy, Unknown, 11/18/15) Home Medications Aspirin 81 Mg Tablet.dr, 81 MG PO DAILY, (Reported) Calcium Citrate 200 Mg Tablet, 400 MG PO DAILY, (Reported) Cholecalciferol (Vitamin D3) 5,000 Unit Tab.rapdis, 2,500 UNIT PO DAILY, (Reported) Eyelid Cleanser Combination #9 1 Each Towelette, 1 EACH TP BID, (Reported) Gabapentin 100 Mg Capsule, 100 MG PO HS, (Reported) Guaifenesin/Dextromethorphan 118 Ml Liquid, 2 TSP PO HS, (Reported) Irbesartan 75 Mg Tablet, 75 MG PO DAILY, (Reported) Metoprolol Succinate 50 Mg Tab.er.24h, 50 MG PO DAILY, (Reported) Multivitamin W-Minerals/Lutein 1 Each Tablet, 1 TAB PO BID, (Reported) Omeprazole 40 Mg Capsule.dr, 40 MG PO DAILY, (Reported) Tamoxifen Citrate 20 Mg Tablet, 20 MG PO DAILY, (Reported) Patient Home Medication List Home Medication List Reviewed: Yes Review of Systems Review of Systems Constitutional: chills; No diaphoresis; fever, malaise, weakness EENTM: No ear discharge, No ear pain Respiratory: cough; No phlegm; short of breath; No wheezing Cardiovascular: No chest pain, No edema Gastrointestinal: No abdominal pain, No constipation; diarrhea, nausea, vomiting Genitourinary: No discharge, No dysuria Musculoskeletal: see HPI, back pain; No joint pain All Other Systems Reviewed Negative Unless Noted: Yes Past Tjiprtd-Iujdyz-Xhjkod Hx Patient Social History Alcohol Use: Denies Use Recreational Drug Use: No Smoking Status: Never a Smoker 2nd Hand Smoke Exposure: No Recent Foreign Travel: No Contact w/Someone Who Travel: No Recent Infectious Disease Expo: No Recent Hopitalizations: No Immunizations Up To Date Tetanus Booster (TDap): Unknown Date of Pneumonia Vaccine: Jul 08, 2015 Date of Influenza Vaccine: May 15, 2018 Seasonal Allergies Seasonal Allergies: Yes Past Medical History Surgeries: Yes (back sx, right TKR, colon polyp/resection x3, lap osphie, mastectomy) Abdominal, Adenoidectomy, Eye Surgery, Joint Replacement, Orthopedic, Tonsillectomy Respiratory: Yes (CHRONIC COUGH) Cardiac: Yes Hypertension, Palpitations Neurological: Yes Neuropathy Reproductive Disorders: No Sexually Transmitted Disease: No HIV/AIDS: No Genitourinary: No Gastrointestinal: Yes Gastroesophageal Reflux, Chronic Diarrhea, Polyps Musculoskeletal: Yes Degenerate Disk Disease, Arthritis, Chronic Back Pain Endocrine: No HEENT: Yes (GLASSES) Cataract, Macular Degeneration Loss of Vision: Denies Hearing Impairment: Denies Cancer: Yes Breast Did You Recieve Any Treatments: Yes What Type of Treatment Did You: Surgical Intervention Psychosocial: No Integumentary: No Blood Disorders: No Adverse Reaction/Blood Tranf: No (HAS HAD BLOOD CHILD WITH NO REACTION) Family Medical History Cardiovascular disease 19 FATHER G8 BROTHER Completed stroke 19 MOTHER Diabetes mellitus G8 BROTHER Hypertension 19 FATHER 19 MOTHER G8 BROTHER G8 SISTER Myocardial infarction 19 FATHER G8 BROTHER Physical Exam-Suspected Sepsis Physical Exam Vital Signs Vital Signs - First Documented 06/25/20 18:19 Temp 38.6 Pulse 80 Resp 23 B/P (MAP) 134/67 (89) Pulse Ox 95 O2 Delivery Room Air Capillary Refill : Less Than 3 Seconds Blood Pressure Mean: 89 Height, Weight, BMI Height: 5'2.00" Weight: 121lbs. 8.0oz. 55.569648hv; 21.00 BMI Method:Stated General Appearance: WD/WN, Mild Distress Eyes: Bilateral Eye Normal Inspection, Bilateral Eye PERRL, Bilateral Eye EOMI HEENT: PERRL/EOMI, Normal ENT Inspection, Pharynx Normal; No Moist Mucous Membranes Neck: Full Range of Motion, Normal Inspection Respiratory: Lungs Clear, No Accessory Muscle Use, No Respiratory Distress, Decreased Breath Sounds, Other (loose cough on deep inspiration.) Cardiovascular: Regular Rate, Rhythm, Normal Peripheral Pulses Gastrointestinal: Normal Bowel Sounds, No Organomegaly, Soft, Tenderness (generally mildly tender all 4 quadrants without mass or organomegaly. Negative for McBurney's point tenderness or rebound tenderness, Rovsing sign, psoas sign or Good sign.) Extremity: Normal Capillary Refill, Normal Inspection, Normal Range of Motion, No Pedal Edema Neurologic/Psychiatric: Alert, Oriented x3, No Motor/Sensory Deficits Skin: normal color, warm/dry Focused Exam Sepsis Stage: Sepsis Possible Source: Pulmonary Lactate Level 06/25/20 18:28: Lactic Acid Level 1.07 Time of Focused Exam: 19:38 Respiratory: Lungs Clear, No Accessory Muscle Use, Respiratory Distress (mild with exertional hypoxia sats down to 90%) Cardiovascular: Regular Rate, Rhythm, No Edema, Normal Peripheral Pulses Capillary Refill: Less Than 3 Seconds Peripheral Pulses: 2+ Radial Pulses (R), 2+ Radial Pulses (L) Skin: normal color, warm/dry Lactic Acid Level Laboratory Tests Test 06/25/20 18:28 Lactic Acid Level 1.07 MMOL/L (0.50-2.00) Within 3hrs of presentation: Admin fluids, Admin ABX, Blood cultures prior to ABX's, Focus exam, Lactate level Progress/Results/Core Measures Suspected Sepsis Recent Fever Within 48 Hours: Yes Infection Criteria Present: None New/Unexplained Altered Menta: No Sepsis Screen: No Definite Risk SIRS Temperature: Pulse: 80 Respiratory Rate: 23 Laboratory Tests 06/25/20 18:28: White Blood Count 3.0L Blood Pressure 134 /67 Mean: 89 06/25/20 18:28: Lactic Acid Level 1.07 Laboratory Tests 06/25/20 18:28: Creatinine 1.40H, INR Comment 1.0, Platelet Count 87L, Total Bilirubin 0.6 Results/Orders Lab Results Laboratory Tests Test 06/25/20 18:28 06/25/20 19:13 Range/Units White Blood Count 3.0 L 4.3-11.0 10^3/uL Red Blood Count 3.38 L 3.80-5.11 10^6/uL Hemoglobin 10.7 L 11.5-16.0 g/dL Hematocrit 32 L 35-52 % Mean Corpuscular Volume 96 80-99 fL Mean Corpuscular Hemoglobin 32 25-34 pg Mean Corpuscular Hemoglobin Concent 33 32-36 g/dL Red Cell Distribution Width 12.5 10.0-14.5 % Platelet Count 87 L 130-400 10^3/uL Mean Platelet Volume 10.4 9.0-12.2 fL Immature Granulocyte % (Auto) 0 % Neutrophils (%) (Auto) 82 H 42-75 % Lymphocytes (%) (Auto) 9 L 12-44 % Monocytes (%) (Auto) 10 0-12 % Eosinophils (%) (Auto) 0 0-10 % Basophils (%) (Auto) 0 0-10 % Neutrophils # (Auto) 2.5 1.8-7.8 10^3/uL Lymphocytes # (Auto) 0.3 L 1.0-4.0 10^3/uL Monocytes # (Auto) 0.3 0.0-1.0 10^3/uL Eosinophils # (Auto) 0.0 0.0-0.3 10^3/uL Basophils # (Auto) 0.0 0.0-0.1 10^3/uL Immature Granulocyte # (Auto) 0.0 0.0-0.1 10^3/uL Prothrombin Time 14.0 12.2-14.7 SEC INR Comment 1.0 0.8-1.4 Activated Partial Thromboplast Time 34 24-35 SEC D-Dimer 1.64 H 0.00-0.49 UG/ML Blood Gas Puncture Site R RAD Blood Gas Patient Temperature 101.4 Arterial Blood pH 7.46 H 7.37-7.43 Arterial Blood Partial Pressure CO2 34 L 35-45 MMHG Arterial Blood Partial Pressure O2 81 79-93 MMHG Arterial Blood HCO3 24 23-27 MMOL/L Arterial Blood Total CO2 24.4 21.0-31.0 MMOL/L Arterial Blood Oxygen Saturation 94 94-100 % Arterial Blood Base Excess 0.3 -2.5-2.5 MMOL/L Lewis Test YES-POS Blood Gas Ventilator Setting NO Blood Gas Inspired Oxygen ROOM AIR Sodium Level 135 135-145 MMOL/L Potassium Level 3.5 L 3.6-5.0 MMOL/L Chloride Level 102 98-107 MMOL/L Carbon Dioxide Level 22 21-32 MMOL/L Anion Gap 11 5-14 MMOL/L Blood Urea Nitrogen 19 H 7-18 MG/DL Creatinine 1.40 H 0.60-1.30 MG/DL Estimat Glomerular Filtration Rate 36 BUN/Creatinine Ratio 14 Glucose Level 144 H 70-105 MG/DL Lactic Acid Level 1.07 0.50-2.00 MMOL/L Calcium Level 7.9 L 8.5-10.1 MG/DL Corrected Calcium 8.5 8.5-10.1 MG/DL Total Bilirubin 0.6 0.1-1.0 MG/DL Aspartate Amino Transf (AST/SGOT) 26 5-34 U/L Alanine Aminotransferase (ALT/SGPT) 10 0-55 U/L Alkaline Phosphatase 31 L 40-136 U/L C-Reactive Protein High Sensitivity 4.65 H 0.00-0.50 MG/DL Total Protein 5.6 L 6.4-8.2 GM/DL Albumin 3.2 3.2-4.5 GM/DL Coronavirus 2019 ([facility]) Positive H Negative Micro Results Microbiology 06/25/20 Influenza Types A,B Antigen (IRA) - Final, Complete My Orders Orders - KRYSTA CORBETT Water (Sterile) For Injection (Sterile W (06/25/20 18:33) Ns (Ivpb) (Sodium Chloride 0.9%) (06/25/20 18:33) Ceftriaxone For Iv Use (Rocephin For I (06/25/20 18:33) Lactated Ringers (Lr 1000 Ml Iv Solution (06/25/20 18:33) Acetaminophen Tablet (Tylenol Tablet) (06/25/20 18:33) Azithromycin Injection (Zithromax Inject (06/25/20 18:34) Ed Iv/Invasive Line Start (06/25/20 18:34) Cbc With Automated Diff (06/25/20 18:34) Comprehensive Metabolic Panel (06/25/20 18:34) Blood Culture (06/25/20 18:34) Sputum Culture (06/25/20 18:34) Urinalysis (06/25/20 18:34) Urine Culture (06/25/20 18:34) Protime With Inr (06/25/20 18:34) Partial Thromboplastin Time (06/25/20 18:34) Chest 1 View, Ap/Pa Only (06/25/20 18:34) Acetaminophen Tablet (Tylenol Tablet) (06/25/20 18:45) Ed Iv/Invasive Line Start (06/25/20 18:34) Ed Iv/Invasive Line Start (06/25/20 18:34) Vital Signs Adult Sepsis Patie Q15M (06/25/20 18:34) Ondansetron Injection (Zofran Injectio (06/25/20 18:45) O2 (06/25/20 18:34) Remove Rings In Anticipation O (06/25/20 18:34) Lactic Acid Analyzer (06/25/20 18:34) Influenza A And B Antigens (06/25/20 18:34) Lactated Ringers (Lr 1000 Ml Iv Solution (06/25/20 18:34) Ceftriaxone For Iv Use (Rocephin For I (06/25/20 18:45) Azithromycin Injection (Zithromax Inject (06/25/20 18:45) Arterial Blood Gas (06/25/20 18:34) Covid 19 Inhouse Test (06/25/20 18:34) Sacrum And Coccyx (06/25/20 18:46) Procalcitonin (Pct) (06/25/20 18:46) Hs C Reactive Protein (06/25/20 18:46) Fibrin Degradation Products (06/25/20 18:46) Medications Given in ED Current Medications Medications Dose Ordered Sig/Diana Route Start Time Stop Time Status Last Admin Dose Admin Acetaminophen 500 mg STK-MED ONCE .ROUTE 06/25/20 18:33 06/25/20 18:36 DC 06/25/20 18:42 1,000 MG Azithromycin 500 mg/Sodium Chloride 255 ml @ 250 mls/hr ONCE ONCE IV 06/25/20 18:45 06/25/20 19:46 06/25/20 18:56 250 MLS/HR Ceftriaxone Sodium 1,000 mg STK-MED ONCE .ROUTE 06/25/20 18:33 06/25/20 18:36 DC 06/25/20 18:43 1,000 MG Lactated Ringer's 1,000 ml @ 0 mls/hr Q0M ONCE IV 06/25/20 18:34 06/25/20 18:44 DC 06/25/20 18:54 1,000 MLS/HR Ondansetron HCl 4 mg PRN PRN IV 06/25/20 18:45 06/25/20 19:07 DC 06/25/20 19:06 4 MG Sterile Water 10 ml @ ud STK-MED ONCE .ROUTE 06/25/20 18:33 06/25/20 18:35 DC 06/25/20 18:43 10 MLS/HR Vital Signs/I&O 06/25/20 06/25/20 18:19 18:42 Temp 38.6 38.6 Pulse 80 Resp 23 B/P (MAP) 134/67 (89) Pulse Ox 95 O2 Delivery Room Air Capillary Refill : Less Than 3 Seconds Blood Pressure Mean: 89 Progress Note : Time: 18:45 Progress Note Febrile loose cough suspect pneumonia possibly viral such as COVID-19 are influenza. We'll get some labs including pro-Can and CRP d-dimer. We'll get an x-ray of her coccyx as well as her chest. She is already completed a appropriate observation period and is alert and oriented 4 so a clinically significant subdural hematoma is less likely especially given her reported mechanism of injury from a fall over a day ago. Liter of fluids to be greater than 20 mL/kg. Rocephin and azithromycin would be appropriate coverage for someone has not been in the hospital. She is on room air and so we got an ABG because her oxygen sats are 96% for us while at rest. Diagnostic Imaging Diagonstic Imaging: Xray Plain Films/CT/US/NM/MRI: chest Comments NAME: MICHAEL GIFFORD [facility] REC#: [id number] PT STATUS: REG ER : 1935 PHYSICIAN: KRYSTA CORBETT MD ADMIT DATE: 06/25/20/ER Draft Date of Exam:11/18/20 CHEST 1 VIEW, AP/PA ONLY INDICATION: Cough. Diarrhea. Vomiting. Recent fall. COMPARISON: 11/08/2017. EXAMINATION: Single frontal radiographic view of the chest was obtained. FINDINGS: Normal cardiac size and pulmonary vasculature. Evaluation of the lung cardenas demonstrates no focal consolidation, large effusion or pneumothorax. Multiple surgical clips are noted projecting over the left chest. There is suggestion of 1.6 cm area of nodular spiculation. Osseous structures show no gross acute abnormality. IMPRESSION: 1. No evidence of failure or focal infiltrate. 2. Area of suspicious spiculated nodularity projecting over the lateral left midlung. Further characterization with dedicated CT of the chest is recommended and could be performed on a nonemergent basis. Dictated on workstation # [id number] Dict: 06/25/201915 Trans: 06/25/201931 [facility] [id number] Interpreted by: DEZ RUIZ MD Electronically signed by: Reviewed: Reviewed by Diagonstic Imaging: Xray Plain Films/CT/US/NM/MRI: other (sacrum coccyx) Reviewed: Reviewed by Me Departure Communication (Admissions) Time/Spoke to Admitting Phy: 19:40 Communication (PCP) Discussed this patient related mass with Dr. Vuong. She has directed this case to be admitted by Dr. Hogan since the patient has COVID-19. Impression Primary Impression: COVID-19 Additional Impressions: Sepsis Qualified Codes: A41.9 - Sepsis, unspecified organism; R65.20 - Severe sepsis without septic shock; J96.01 - Acute respiratory failure with hypoxia spiculated lesion left lung Physical debility Dehydration Disposition: ADMITTED INPATIENT Condition: Stable Admissions Decision to Admit Reason: Admit from ER (General) Decision to Admit/Date: Jun 25, 2020 Time/Decision to Admit Time: 19:23 Departure-Patient Inst. Referrals: ALEX VUONG MD Primary Care Physician KRSYTA CORBETT Jun 25, 2020 18:46
[2020-06-25 18:49] LABS: ABG BASE EXCESS 0.3 MMOL/L (-2.5-2.5); ABG OXYGEN SATURATION 94 % (94-100); ABG PCO2 34 MMHG (35-45); ABG PH 7.46 (7.37-7.43); ABG PO2 81 MMHG (79-93); ABG TCO2 24.4 MMOL/L (21.0-31.0)
[2020-06-25 18:50] LABS: ALLENS TEST YES-POS; INSPIRED O2 ROOM AIR; PATIENT TEMP 101.4; VENTILATOR NO
[2020-06-25 18:51] LABS: BASOPHILS % (AUTO) 0 % (0-10); EOSINOPHILS % (AUTO) 0 % (0-10); HEMATOCRIT 32 % (35-52); HEMOGLOBIN 10.7 g/dL (11.5-16.0); LYMPHOCYTES # (AUTO) 0.3 10^3/uL (1.0-4.0); LYMPHOCYTES % (AUTO) 9 % (12-44); MEAN CORPUSCULAR HEMOGLOBIN 32 pg (25-34); MEAN CORPUSCULAR HGB CONC 33 g/dL (32-36); MEAN CORPUSCULAR VOLUME 96 fL (80-99); MEAN PLATELET VOLUME 10.4 fL (9.0-12.2); MONOCYTES # (AUTO) 0.3 10^3/uL (0.0-1.0); MONOCYTES % (AUTO) 10 % (0-12); NEUTROPHILS # (AUTO) 2.5 10^3/uL (1.8-7.8); NEUTROPHILS % (AUTO) 82 % (42-75)
--- NOTE | 2020-06-25 18:52 | NUR ---
1000 ml infused from EMS
[2020-06-25 18:54] LABS: PLATELET COUNT 87 10^3/uL (130-400)
[2020-06-25 18:58] LABS: ALBUMIN 3.2 GM/DL (3.2-4.5); POTASSIUM 3.5 MMOL/L (3.6-5.0)
[2020-06-25 19:00] LABS: CALCIUM 7.9 MG/DL (8.5-10.1)
[2020-06-25 19:01] LABS: TOTAL PROTEIN 5.6 GM/DL (6.4-8.2)
[2020-06-25 19:03] LABS: BILIRUBIN,TOTAL 0.6 MG/DL (0.1-1.0)
[2020-06-25 19:04] LABS: CREATININE SERUM 1.4 MG/DL (0.60-1.30)
[2020-06-25 19:20] LABS: BILIRUBIN,URINE NEGATIVE (NEGATIVE); CLARITY,URINE CLEAR; COLOR,URINE YELLOW; GLUCOSE, URINE (UA) NEGATIVE (NEGATIVE); KETONES,URINE NEGATIVE (NEGATIVE); LEUKOCYTE ESTERASE ,URINE NEGATIVE (NEGATIVE); NITRITE,URINE NEGATIVE (NEGATIVE); PROTEIN,URINE 1+ (NEGATIVE)
--- NOTE | 2020-06-25 19:32 | Diagnostic Imaging Report ---
INDICATION: Cough. Diarrhea. Vomiting. Recent fall. COMPARISON: 11/08/2017. EXAMINATION: Single frontal radiographic view of the chest was obtained. FINDINGS: Normal cardiac size and pulmonary vasculature. Evaluation of the lung cardenas demonstrates no focal consolidation, large effusion or pneumothorax. Multiple surgical clips are noted projecting over the left chest. There is suggestion of 1.6 cm area of nodular spiculation. Osseous structures show no gross acute abnormality. IMPRESSION: 1. No evidence of failure or focal infiltrate. 2. Area of suspicious spiculated nodularity projecting over the lateral left midlung. Further characterization with dedicated CT of the chest is recommended and could be performed on a nonemergent basis. Dictated by: Dictated on workstation # [id number]
--- NOTE | 2020-06-25 19:32 | Diagnostic Imaging Report ---
INDICATION: Fall, tailbone pain. TECHNIQUE: AP and lateral views of the sacrum and coccyx at 7:11 p.m. CORRELATION STUDY: None. FINDINGS: SI joints appear to be maintained. There is no definitive abnormal displacement or findings of displaced sacrococcygeal fracture. There is advanced degenerative changes of the lower lumbar spine. This includes disc space narrowing. Trace anterolisthesis of L5 on S1. Hypertrophic facet arthropathy. IMPRESSION: Negative for acute displaced sacrococcygeal fracture. Dictated by: Dictated on workstation # [id number]
[2020-06-25 19:44] LABS: BACTERIA,URINE NEGATIVE /HPF; SQUAMOUS EPITHELIAL CELL,UR RARE /HPF
[2020-06-25 19:45] LABS: AMORPHOUS SEDIMENT,UR FEW AMOR URATES /LPF
--- NOTE | 2020-06-25 19:58 | NUR ---
pt's family notified of pending admission. poc.
--- NOTE | 2020-06-25 20:20 | NUR ---
MICHAEL GIFFORD admitted to room 431-1, with an admitting diagnosis of COVID 19; SEPSIS/ HYPOXIA/ DEHYDRATION/ PHYSICAL DEBILITY, on 06/25/20 from ED via [facility], accompanied by STAFF.MICHAEL GIFFORD introduced to surroundings, call light, bed controls, phone, TV, temperature control, lights, meal times, smoking policy, visitor policy, side rail policy, bathrooms and showers. Patient Rights given to patient in the handbook. MICHAEL GIFFORD verbalizes understanding that [facility] is not responsible for the loss or damage to any personal effects or valuables that are kept in the patients posession during their hospitalization.
[2020-06-25 20:27] VITALS: BP 120/64
[2020-06-25] MEDS ORDERED: LACTATED RINGERS IV PRN (20:30)
[2020-06-25] MEDS ORDERED: ACETAMINOPHEN 325 MG TABLET PO PRN (20:30)
[2020-06-25] MEDS ORDERED: IBUPROFEN 600 MG (MOTRIN) TAB PO PRN (20:30)
[2020-06-25] MEDS: LACTATED RINGERS 1,000 ML IV SCH (21:03)
[2020-06-25] MEDS: GABAPENTIN 100 MG (NEURONTIN) CAP PO SCH (21:03)
[2020-06-25 21:35] VITALS: BP 120/64
[2020-06-25] MEDS ORDERED: RT-ALBUTEROL INHALER HFA (VENTOLIN HFA) 18 GM IH PRN (21:45)
[2020-06-26] VITALS (10 sets, daily range): BP systolic 134–188; BP diastolic 68–85
[2020-06-26] MEDS: LACTATED RINGERS 1,000 ML IV SCH (06:14)
[2020-06-26 06:37] LABS: BASOPHILS % (AUTO) 0 % (0-10); EOSINOPHILS % (AUTO) 0 % (0-10); HEMATOCRIT 33 % (35-52); HEMOGLOBIN 10.5 g/dL (11.5-16.0); LYMPHOCYTES # (AUTO) 0.4 10^3/uL (1.0-4.0); LYMPHOCYTES % (AUTO) 8 % (12-44); MEAN CORPUSCULAR HEMOGLOBIN 32 pg (25-34); MEAN CORPUSCULAR HGB CONC 32 g/dL (32-36); MEAN CORPUSCULAR VOLUME 100 fL (80-99); MEAN PLATELET VOLUME 10.7 fL (9.0-12.2); MONOCYTES # (AUTO) 0.3 10^3/uL (0.0-1.0); MONOCYTES % (AUTO) 6 % (0-12); NEUTROPHILS # (AUTO) 3.6 10^3/uL (1.8-7.8); NEUTROPHILS % (AUTO) 85 % (42-75); PLATELET COUNT 73 10^3/uL (130-400); WHITE BLOOD COUNT 4.3 10^3/uL (4.3-11.0)
[2020-06-26 06:43] LABS: ALBUMIN 2.8 GM/DL (3.2-4.5); BILIRUBIN,TOTAL 0.4 MG/DL (0.1-1.0); CALCIUM 7.8 MG/DL (8.5-10.1); CREATININE SERUM 1.16 MG/DL (0.60-1.30)
[2020-06-26] MEDS ORDERED: FLU QUAD HIGH DOSE 240 MCG/0.7 ML 2020-21 (FLUZONE) IM ONE (07:00)
[2020-06-26] MEDS: RT-ALBUTEROL INHALER HFA (VENTOLIN HFA) 18 GM IH SCH ×2 (07:45→20:13)
--- NOTE | 2020-06-26 07:45 | Diagnostic Imaging Report ---
Indication: COVID positive patient. COMPARISON: 06/25/2020 FINDINGS: Single frontal radiograph view the chest was obtained and demonstrates interval development of focal area of infiltrate appearing opacity within the lateral left midlung. Small area of airspace disease is also seen within the lateral right base. There is no large effusion or pneumothorax. Cardiac silhouette and pulmonary vasculature stable. Skinfold is noted projecting over the right apex. Osseous structures show no gross acute abnormalities. IMPRESSION: 1. Interval development of infiltrative opacity within the lateral left midlung. 2. Additional focal area of infiltrate versus atelectasis in lateral right base. Report was faxed to [facility]/RN Infection Control by sherman at 7:45AM. Dictated by: Dictated on workstation # [id number]
[2020-06-26] MEDS: dexAMETHasone 6 MG TAB (DECADRON) PO SCH (08:21)
[2020-06-26] MEDS: ASPIRIN 81 MG CHEW (CHILDREN'S ASA) PO SCH (08:21)
[2020-06-26] MEDS: PANTOPRAZOLE 40 MG (PROTONIX) TAB PO SCH (08:21)
[2020-06-26] MEDS ORDERED: AZITHROMYCIN INJECTION 500 MG in NS (IVPB) 250 ML IV ONE (09:45)
[2020-06-26] MEDS ORDERED: REMDESIVIR INJ 200 MG in NS (IVPB) 210 ML IV ONE (09:45)
--- NOTE | 2020-06-26 10:01 | History & Physical-Hospitalist ---
History of Present Illness HPI/Chief Complaint Pt is an 84yoCF with a PMH of HTN, HLD who presented to the ER due to weakness. She is somewhat unclear on her HPI so there are some limitations. She knew she had been on quarantine but was unsure why exactly. She didn't think that her daughter have COVID but knew that she was on quarantine because of her daughter. She states that she has coughed for years and that is relatively unchanged but has been so tired and weak. I called and spoke with her daughter, Doreen, who clarified some details. They all went to a 1 year old's birthday democrat on 06/15/20 and subsequently nearly all the attendants developed COVID. Doreen tested positive on 06/18. Doreen believes that her mom was doing ok until about 3 days ago when she got more fatigued and weak. Pt reported the ER that she had nausea, vomiting, and diarhhea along with fever and chills. She denied these to me. Source: patient Date Seen 06/26/20 Time Seen by a Provider: 09:46 Attending Physician Bran Wu MD PCP Zachery Pina MD Referring Physician Date of Admission Jun 25, 2020 at 20:03 Home Medications & Allergies Home Medications Reviewed patient Home Medication Reconciliation performed by pharmacy medication reconciliations military pay technician and/or nursing. Patients Allergies have been reviewed. Allergies Allergies Coded Allergies azathioprine (Verified Allergy, Unknown, UNABLE TO REMEMBER WHAT REACTION WAS, 10/30/18) meperidine HCl (Verified Allergy, Unknown, 11/18/15) Past Piqvlnp-Staexy-Qtsxsk Hx Past Med/Social Hx: Reviewed Nursing Past Med/Soc Hx Patient Social History Alcohol Use: Denies Use Recreational Drug Use: No Smoking Status: Never a Smoker 2nd Hand Smoke Exposure: No Recent Foreign Travel: No Contact w/other who traveled: No Recent Hopitalizations: No Recent Infectious Disease Expo: Yes (covid 19 +) Immunizations Up To Date Tetanus Booster (TDap): Unknown Date of Pneumonia Vaccine: Jul 08, 2015 Date of Influenza Vaccine: May 15, 2018 Seasonal Allergies Seasonal Allergies: Yes Past Medical History Surgeries: Abdominal, Adenoidectomy, Eye Surgery, Joint Replacement, Orthopedic, Tonsillectomy Cardiac: Hypertension, Palpitations Neurological: Neuropathy Reproductive: No Sexually Transmitted Disease: No HIV/AIDS: No Gastrointestinal: Gastroesophageal Reflux, Chronic Diarrhea, Polyps Musculoskeletal: Degenerate Disk Disease, Arthritis, Chronic Back Pain HEENT: Cataract, Macular Degeneration Loss of Vision: Denies Hearing Impairment: Denies Cancer: Breast Did You Recieve Any Treatments: Yes What Type of Treatment Did You: Surgical Intervention History of Blood Disorders: No Adverse Reaction to Blood [place]ff[place]: No (HAS HAD BLOOD CHILD WITH NO REACTION) Family History Reviewed Nursing Family Hx Cardiovascular disease 19 FATHER G8 BROTHER Completed stroke 19 MOTHER Diabetes mellitus G8 BROTHER Hypertension 19 FATHER 19 MOTHER G8 BROTHER G8 SISTER Myocardial infarction 19 FATHER G8 BROTHER Review of Systems ROS-Unable to Obtain: somewhat limited per HPI Constitutional: fever Respiratory: cough; No phlegm, No short of breath Gastrointestinal: diarrhea, nausea, vomiting Physical Exam Physical Exam Vital Signs Vital Signs - First Documented 06/25/20 06/25/20 18:19 20:10 Temp 38.6 Pulse 80 Resp 23 B/P (MAP) 134/67 (89) Pulse Ox 95 O2 Delivery Room Air O2 Flow Rate 2.00 Capillary Refill : Less Than 3 SecondsLess Than 3 Seconds Height, Weight, BMI Height: 5'2.00" Weight: 121lbs. 8.0oz. 55.454236cx; 20.23 BMI Method:Stated General Appearance: No Apparent Distress, Chronically ill, Thin HEENT: PERRL/EOMI, Moist Mucous Membranes Neck: Normal Inspection, Supple Respiratory: Lungs Clear, No Accessory Muscle Use, No Respiratory Distress Cardiovascular: Regular Rate, Rhythm, No Murmur Gastrointestinal: Normal Bowel Sounds, Non Tender, Soft Extremity: No Calf Tenderness, No Pedal Edema Neurologic/Psychiatric: Alert, Oriented x3 (to major details), Normal Mood/Affect Results Results/Procedures Labs Laboratory Tests 06/25/20 18:28 06/26/20 06:00 Patient resulted labs reviewed. Imaging: Reviewed Imaging Report Assessment/Plan Admission Diagnosis Acute respiratory failure due to COVID19 Admission Status: Inpatient Order (span 2 midnights) Reason for Inpatient Admission: see below Assessment and Plan Acute respiratory failure due to COVID19 CAP Spiculated lung mass On 2lpm NC It seems she's roughly 3 days in to symptoms Will started on Remdesivir, continue Decadron Discussed EUA status of convalescent plasma with patient and she is agreeable to treatment Procal up to 8 today, will start on abx to cover for secondary bacterial infection Blood cultures pending from the ER IS Lovenox Will need outpatient follow up of lung mass given known history of breast cancer HTN BP well controlled, trend Debility PT/Ot Diagnosis/Problems Diagnosis/Problems (1) Acute respiratory failure (2) CAP (community acquired pneumonia) (3) Essential (primary) hypertension (4) HLD (hyperlipidemia) (5) History of breast cancer (6) COVID-19 Status: Acute (7) Physical debility Status: Acute (8) Lung mass Clinical Quality Measures DVT/VTE Risk/Contraindication: Risk Factor Score Per Nursin RFS Level Per Nursing on Admit: 3=High MANOHAR CHANG MD Jun 26, 2020 10:01
[2020-06-26] MEDS ORDERED: MULTIVIT W/MINERALS TAB (THERAGRAN M) PO ONE (10:15)
[2020-06-26] MEDS: ENOXAPARIN 40 MG/0.4 ML (LOVENOX) SYR SQ SCH (11:35)
[2020-06-26] MEDS: cefTRIAXone FOR IV USE 1,000 MG in WATER (STERILE) FOR INJECTION 10 ML IV SCH (11:36)
[2020-06-26] MEDS ORDERED: ASPI-1238 PO (15:20)
[2020-06-26] MEDS ORDERED: CLC600T PO (15:20)
[2020-06-26] MEDS ORDERED: CHOL100048 PO (15:20)
--- NOTE | 2020-06-26 15:48 | NUR ---
SPOKE WITH THE PT (CALLED HER ROOM PHONE) AND WENT THRU THE EXT MED HISTORY TO COMPLETE THE MED REC PT WAS ABLE TO TELL ME THE NAME OF HER MEDS WELL WHEN/HOW SHE TAKES EACH OTC MEDS: VIT D3 CALCIUM EYE MTV ASPIRIN 81MG
[2020-06-26] MEDS: AZITHROMYCIN INJECTION 250 MG in NS (IVPB) 250 ML IV SCH (19:04)
[2020-06-26] MEDS: GABAPENTIN 100 MG (NEURONTIN) CAP PO SCH (20:07)
[2020-06-27 00:05] VITALS: BP 144/65
[2020-06-27 03:58] VITALS: BP 138/72
[2020-06-27] MEDS: MULTIVIT W/MINERALS TAB (THERAGRAN M) PO SCH (06:38)
[2020-06-27 06:40] LABS: HEMOGLOBIN 10.4 g/dL (11.5-16.0)
[2020-06-27 06:42] LABS: MEAN PLATELET VOLUME 10.9 fL (9.0-12.2); WHITE BLOOD COUNT 4.4 10^3/uL (4.3-11.0)
[2020-06-27 06:55] LABS: ALBUMIN 2.9 GM/DL (3.2-4.5); POTASSIUM 4.1 MMOL/L (3.6-5.0)
[2020-06-27 06:56] LABS: CALCIUM 7.6 MG/DL (8.5-10.1)
[2020-06-27 06:58] LABS: TOTAL PROTEIN 5.2 GM/DL (6.4-8.2)
[2020-06-27 06:59] LABS: BILIRUBIN,TOTAL 0.3 MG/DL (0.1-1.0)
[2020-06-27 07:00] VITALS: BP 169/74
[2020-06-27 07:01] LABS: CREATININE SERUM 1.01 MG/DL (0.60-1.30)
[2020-06-27] MEDS ORDERED: AZITHROMYCIN INJECTION 250 MG in NS (IVPB) 250 ML IV SCH (09:00)
[2020-06-27] MEDS: RT-ALBUTEROL INHALER HFA (VENTOLIN HFA) 18 GM IH SCH ×2 (09:13→20:18)
[2020-06-27] MEDS: REMDESIVIR INJ 100 MG in NS (IVPB) 230 ML IV SCH (09:23)
[2020-06-27] MEDS: dexAMETHasone 6 MG TAB (DECADRON) PO SCH (09:26)
[2020-06-27] MEDS: PANTOPRAZOLE 40 MG (PROTONIX) TAB PO SCH (09:26)
[2020-06-27] MEDS: cefTRIAXone FOR IV USE 1,000 MG in WATER (STERILE) FOR INJECTION 10 ML IV SCH (09:26)
[2020-06-27] MEDS: ASPIRIN 81 MG CHEW (CHILDREN'S ASA) PO SCH (09:26)
[2020-06-27] MEDS: ENOXAPARIN 40 MG/0.4 ML (LOVENOX) SYR SQ SCH (09:26)
--- NOTE | 2020-06-27 11:31 | NUR ---
Contacted pt's daughter Doreen Cornell to assess any post hospital needs Daughter states pt's who is in his 90's tested positive for Co-Vid yesterday so he is staying with her and due to possible confusion and weren't sure he could managel alone. Apparently everyone in the household is recovering from Co-Vid. Daughter states she had influenza also and has asthma but is getting better and only complaint is becoming short of breath upon exertion. Her is recovering as well as their adult daughter who lives in the home, The only person who doesn't have it is their granddaughter who is a small child exact age unknown.Pt has been independent and doesn't have oxygen at home. Apparently pt's has been receiving weekly visits from [facility] and would like Home Health to continue for pt upon discharge. Will follow.
[2020-06-27 12:00] VITALS: BP 132/66
--- NOTE | 2020-06-27 12:51 | Physician Query Clarification ---
"Physician Query-General Query to Physician: The medical record reflects the following clinical scenario: History/Risk factors: Covid 19, PNA Clinical Findings: RR 23, T 38.6, WBC 3.0 Platlets 87, Procalcitonin 0.64 ->8.42 Treatment: IV Fluids bolus, IV ABX, Remdesivir, Question: Do you agree with the impression of Severe Sepsis per Dr. Abhishek baer(Consulting physician)? If you agree, please document in Progress Notes or Discharge Summary. 1. Yes; will document Severe sepsis due to Covid 19/PNA present on admission in the Progress Notes 2. No; will continue to document Covid 19/PNA in the Progress Notes 3. Other; will document explanation of clinical findings 4. Clinically undetermined; no explanation for clinical findings Please remember a lack of response to the above will prompt a phone page by CDI/coding staff. In responding to this query, please exercise your independent professional judgment. The purpose of this communication is to more accurately reflect the complexity of your patients condition. The fact that a question is asked does not imply that any particular answer is desired or expected. Thank you for timely response to this clarification. Molly Mcarthur, MSN, RN RN Specialist-Clinical Doc Improvement CD -Health Info Mgmt Operations [address] [facility] t: [phone] | f: [phone] If you are unable to reach me at my extension, I may be working from home. Please contact me at [phone] PHYSICIAN RESPONSE: Based on the clinical findings in the record, please respond to the query above on this document as an addendum. Physician Response: Physician Response No; will continue to document Covid 19/PNA in the Progress Notes If you have questions please contact: Stretcher And Drier: Ext: Thank you for your time and cooperation. Clinical Material Handling Supervisor/Stretcher And Drier This is a permanent part of the medical record MOLLY MCARTHUR Jun 27, 2020 12:51 MANOHAR CHANG MD Jun 27, 2020 16:21"
--- NOTE | 2020-06-27 13:02 | NUR ---
PATIENT AMBULATED AROUND IN THE ROOM, REQUIRING ASSISTANCE FROM THIS RN FOR STEADYING SAFETY. PATIENT SPO2 96% ON RA WITH ACTIVITY. PATIENT TOLERATED ACTIVITY WELL. PATIENT FATIGUES EASILY. APPROX 50' WITH NO REST BREAKS. OCCASIONAL DRY COUGH NOTED. PAITENT BACK TO BED. DENIES C/O AT THIS TIME. CONT TO MONITOR.
--- NOTE | 2020-06-27 13:16 | Progress Note - Hospitalist ---
Subjective HPI/CC On Admission Date Seen by Provider: Jun 27, 2020 Time Seen by Provider: 13:11 Pt is an 84yoCF with a PMH of HTN, HLD who presented to the ER due to weakness. She is somewhat unclear on her HPI so there are some limitations. She knew she had been on quarantine but was unsure why exactly. She didn't think that her d aughter have COVID but knew that she was on quarantine because of her daughter. She states that she has coughed for years and that is relatively unchanged but has been so tired and weak. I called and spoke with her daughter, Doreen, who clarified some details. They all went to a 1 year old's birthday alliance party on 06/15/20 and subsequently nearly all the attendants developed COVID. Doreen tested positive on 06/18. Doreen believes that her mom was doing ok until about 3 days ago when she got more fatigued and weak. Pt reported the ER that she had nausea, vomiting, and diarhhea along with fever and chills. She denied these to me. Subjective/Events-last exam Pt reports feeling better. No complaints. Laying in bed about to eat lunch. Still feels weak but off oxygen. Focused Exam Lactate Level 06/25/20 18:28: Lactic Acid Level 1.07 06/25/20 20:45: Lactic Acid Level 0.69 Time of Focused Exam: 19:38 Objective Exam Vital Signs Vital Signs Date Time Temp Pulse Resp B/P (MAP) Pulse Ox O2 Delivery O2 Flow Rate FiO2 06/27/20 12:00 36.1 66 18 132/66 (88) 93 Nasal Cannula 1.00 Capillary Refill : Less Than 3 SecondsLess Than 3 Seconds General Appearance: No Apparent Distress, WD/WN Respiratory: Lungs Clear, No Respiratory Distress Cardiovascular: Regular Rate, Rhythm, No Murmur Neurologic/Psychiatric: Alert, Oriented x3 Results/Procedures Lab Laboratory Tests 06/27/20 06:26 Patient resulted labs reviewed. Imaging: Reviewed Imaging Report Assessment/Plan Assessment and Plan Assess & Plan/Chief Complaint Acute respiratory failure due to COVID19 CAP Spiculated lung mass On room air now It seems symptoms started on 06/23 per pt's and daughters history continue Decadron and remdesivir s/p 1 unit convalescent plasma Continue abx for secondary bacterial infection Blood cultures negative IS Lovenox Will need outpatient follow up of lung mass given known history of breast cancer HTN BP well controlled, trend Debility PT/OT DV ppx: Lovenox Diagnosis/Problems Diagnosis/Problems (1) Acute respiratory failure (2) CAP (community acquired pneumonia) (3) Essential (primary) hypertension (4) HLD (hyperlipidemia) (5) History of breast cancer (6) COVID-19 Status: Acute (7) Physical debility Status: Acute (8) Lung mass Clinical Quality Measures DVT/VTE Risk/Contraindication: Risk Factor Score Per Nursin RFS Level Per Nursing on Admit: 3=High MANOHAR CHANG MD Jun 27, 2020 13:16
--- NOTE | 2020-06-27 14:10 | Physical Therapy Evaluation ---
PT Evaluation-General Medical Diagnosis Admission Date Jun 25, 2020 at 20:03 Medical Diagnosis: Covid 19/sepsis/hypoxia/dehydration Onset Date: Jun 25, 2020 Therapy Diagnosis Therapy Diagnosis: debility Height/Weight Height (Feet): 5 Height (Inches): 2.00 Weight (Pounds): 121 Weight (Ounces): 8.0 Precautions Precautions/Isolations: Contact Isolation, Droplet Isolation Referral Physician: Chapin Reason for Referral: Evaluation/Treatment Medical History Pertinent Medical History: HTN, Neuropathy Additional Medical History breast cancer Current History EMS secondary to aches, cough, vomiting and diarrhea/s/p fall at home Reviewed History: Yes Social History Home: Single Level Current Living Status: Spouse Prior Prior Level of Function SCALE: Activities may be completed with or without assistive devices. 1-Bkazgmglni-itfewkm completes the activity by him/herself with no assistance from a helper. 5-Set-up or Clean-up Assistance-helper sets up or cleans up; patient completes activity. [place] assists only prior to or following the activity. 4-Supervision or Touching Assistance-helper provides verbal cues and/or touching/steadying and/or contact guard assistance as patient completes activity. Assistance may be provided throughout the activity or intermittently. 3-Partial/Moderate Assistance-helper does LESS THAN HALF the effort. [place] lifts, holds or supports trunk or limbs, but provides less than half the effort. 2-Substantial/Maximal Assistance-helper does MORE THAN HALF the effort. [place] lifts or holds trunk or limbs and provides more than half the effort. 4-Qccgzcahn-lvkcsk does ALL the effort. Patient does none of the effort to complete the activity. Or, the assistance of 2 or more helpers is required for the patient to complete the activity. If activity was not attempted, code reason: 7-Patient Refused. 9-Not Applicable-not attempted and the patient did not perform the activity before the current illness, exacerbation or injury. 10-Not Attempted due to Environmental Limitations-(lack of equipment, weather restraints, etc.). 88-Not Attempted due to Medical Conditions or Safety Concerns. Bed Mobility: 6 Transfers (B,C,W/C): 6 Gait: 6 Stairs: 6 Indoor Mobility (Ambulation): Independent Stairs: Independent Prior Devices Use: None PT Evaluation-Current Subjective Patient agrees to PT. Objective Patient Orientation: Normal For Age ROM/Strength ROM Lower Extremities bilateral LE WFL Strength Lower Extremities 4-/5 grossly bilateral LE Integumentary/Posture Integumentary refer to nursing notes Bowel Incontinence: No Bladder Incontinence: No Posture WFL Neuromuscular (Tone, Coordination, Reflexes) grossly intact Sensory Vision: Functional Hearing: Functional Sensation Right Lower Extremit: Impaired Sensation Left Lower Extremity: Impaired Transfers Roll Left to Right (QC): 6 Sit to Lying (QC): 6 Lying to Sitting/Side of Bed(Q: 6 Sit to Stand (QC): 5 Gait Does the Patient Walk?: Yes Mode of Locomotion: Walk Anticipated Mode of Locomotion: Walk Walk 10 feet (QC): 5 Walk 50 ft with 2 Turns(QC): 5 Walk 150 ft (QC): 5 Distance: 200' Gait Assistive Device: FWW Comments/Gait Description safe and functional with no deviation Balance Sitting Static: Normal Sitting Dynamic: Normal Standing Static: Normal Standing Dynamic: Normal Assessment/Needs 84 y.o. female, will be seen short term by skilled PT to address pulmonary function with functional mobility to ensure safe return to home with spouse at maximum LOF. Rehab Potential: Fair PT Short Term Goals Short Term Goals Time Frame: Jul 04, 2020 Roll Left & Right: 6 Sit to lyin Lying to sitting on side of be: 6 Sit to stand: 6 Chair/nng-mp-uljwd transfer: 6 Toilet transfer: 6 Car transfer: 6 Walk 10 feet: 6 Walk 50 feet with two turns: 6 Walk 150 feet: 6 PT Plan Problem List Problem List: Activity Tolerance Treatment/Plan Treatment Plan: Continue Plan of Care Treatment Plan: Education, Functional Activity Chi, Functional Strength, Gait, Safety, Therapeutic Exercise, Transfers Treatment Duration: Jul 04, 2020 Frequency: 6 times per week Estimated Hrs Per Day: .5 hour per day Patient and/or Family Agrees t: Yes Time/GCodes Time In: 1325 Time Out: 1338 Total Billed Treatment Time: 13 Total Billed Treatment 1 visit EVMod 13 min NAT YIP PT Jun 27, 2020 14:10
--- NOTE | 2020-06-27 14:38 | NUR ---
"RD ASSESSMENT PMHx: HTN; GERD; chronic diarrhea; CA(breast); COVID-19 positive PT INTERACTION: Note pt is currently in COVID isolation, per chart review. Note all diet information for nutrition assessment is per Thania RN or per chart review. Thania states current appetite appears poor. Note avg PO intake 25% x2meal, per chart review. Thania states some issues with diarrhea. Note last BM was 06/26, and pt not currently on bowel regimen. Note unable to determine recent wt hx, per chart review. Note BMI of 20.2 (Underweight BMI for age), per chart review. ABNORMAL NUTRITION-RELATED LAB VALUES LOW: Ca 7.6; alkphos 29; Pro 5.2; alb 2.9 HIGH: glu 118; Est. kcal needs: 9878-4500 kcal | 30-35 kcal/kg Est. Pro needs: 52-62 g Pro | 1.0-1.2 g Pro/kg PES STATEMENT: Inadequate oral intake (NI-2.1) related to loss of appetite and diarrhea, as evidenced by chart review, communication with RN, and avg PO intake 25% x2meal. INTERVENTION: Continue with current diet order of Regular diet. Add Ensure Enlive with meals TID, for increased kcal intake. Provides 350 kcal and 20 g Pro per serving. Will continue to follow and reassess as pt needs, intake, and status change. Art Candelaria, MS RD LD"
--- NOTE | 2020-06-27 15:16 | Occupational Therapy Eval ---
OT Evaluation-General/PLF Medical Diagnosis Admission Date Jun 25, 2020 at 20:03 Medical Diagnosis: Covid 19/sepsis/hypoxia/dehydration Onset Date: Jun 25, 2020 Therapy Diagnosis Therapy Diagnosis: decreased ADL status, weakness Height/Weight Height (Feet): 5 Height (Inches): 2.00 Weight (Pounds): 121 Weight (Ounces): 8.0 Precautions Precautions/Isolations: Contact Isolation, Droplet Isolation Referral Physician: Chapin Medical History Pertinent Medical History: HTN, Neuropathy Additional Medical History breast cancer Current History ED due to weakness Social History Home: Single Level Current Living Status: Spouse ADL-Prior Level of Function SCALE: Activities may be completed with or without assistive devices. 8-Krooehoipn-govktgn completes the activity by him/herself with no assistance from a helper. 5-Set-up or Clean-up Assistance-helper sets up or cleans up; patient completes activity. [place] assists only prior to or following the activity. 4-Supervision or Touching Assistance-helper provides verbal cues and/or touching/steadying and/or contact guard assistance as patient completes activity. Assistance may be provided throughout the activity or intermittently. 3-Partial/Moderate Assistance-helper does LESS THAN HALF the effort. [place] lifts, holds or supports trunk or limbs, but provides less than half the effort. 2-Substantial/Maximal Assistance-helper does MORE THAN HALF the effort. [place] lifts or holds trunk or limbs and provides more than half the effort. 3-Zoatrtuis-qwjbpd does ALL the effort. Patient does none of the effort to complete the activity. Or, the assistance of 2 or more helpers is required for the patient to complete the activity. If activity was not attempted, code reason: 7-Patient Refused. 9-Not Applicable-not attempted and the patient did not perform the activity before the current illness, exacerbation or injury. 10-Not Attempted due to Environmental Limitations-(lack of equipment, weather restraints, etc.). 88-Not Attempted due to Medical Conditions or Safety Concerns. ADL PLOF Comments Pt indicates she was independent with all ADLS and functional mobility at PLOF, no AE or AD Self Care: Independent Functional Cognition: Independent DME/Equipment: Bath Chair, Grab Bars, Tub/Shower OT Current Status Subjective Pt laying in bed, agreeable to OT Tx Mental Status/Objective Patient Orientation: Person, Place, Time, Situation Current Glasses/Contacts: Yes Hearing Aids: Yes Dentures/Partials: No Hand Dominance: Right Upper Extremity ROM WFL, BUE shoulder flexion to approx 150 degrees, able to touch back of head. Upper Extremity Coordination WFL Upper Extremity Sensation pt denies tingling/numbness BUEs Upper Extremity Strength grossly 3/5 MMT ADL-Treatment Eating (QC): 5 (per pt report, she required set up assist at lunch, assist cutting food but she is able to open containers.) On/Off Footwear (QC): 3 (Min A to don RLE sock, pt able to don LLE sock and doff both socks.) Other Treatments Pt laying in bed, agreeable to OT evaluation/tx. OT educated pt on purpose and benefit of OT, verbalized understanding. Pt then provided information about PLOF and home set up, and participated in UE screen. Pt transferred supine to sit EOB with SBA, required min A to don RLE sock, pt able to don LLE sock and doff bilateral socks. Pt then requests to lay back down, transfer sit to supine with SBA. OT educated pt on OT POC while she is in the hospital, she verbalized understanding. Post OT tx, pt laying in bed, call light in reach and all needs met. Education OT Patient Education: Correct positioning, Energy conservation, Modified ADL techniques, Progress toward Goal/Update tx plan, Purpose of tx/functional activ ities, Safety issues, Transfer techniques Teaching Recipient: Patient Teaching Methods: Discussion Response to Teaching: Verbalize Understanding OT Greenhouse Staff Goals Greenhouse Staff Goals Time Frame: Jul 04, 2020 Eating (QC): 6 Oral Hygiene (QC): 6 Toileting Hygiene (QC): 6 Shower/Bathe Self (QC): 6 Upper Body Dressing (QC): 6 Lower Body Dressing (QC): 6 On/Off Footwear (QC): 6 1=Demonstrate adherence to instructed precautions during ADL tasks. 2=Patient will verbalize/demonstrate understanding of assistive devices/modifications for ADL. 3=Patient will improve strength/tolerance for activity to enable patient to perform ADL's. OT Education/Plan Problem List/Assessment Assessment: Decreased Activ Tolerance, Decreased UE Strength, Impaired I ADL's, Impaired Self-Care Skills Discharge Recommendations Plan/Recommendations: Continue POC Treatment Plan/Plan of Care Patient would benefit from OT for education, treatment and training to promote independence in ADL's, mobility, safety and/or upper extremity function for ADL's. Plan of Care: ADL Retraining, Functional Mobility, UE Funct Exercise/Act Treatment Duration: Jul 04, 2020 Frequency: 5 times per week Estimated Hrs Per Day: .25 hour per day Rehab Potential: Fair Time/GCodes Start Time: 15:08 Stop Time: 15:20 Total Time Billed (hr/min): 12 Billed Treatment Time 1, PATRIZIA CHILD OT Jun 27, 2020 15:16
[2020-06-27 15:52] VITALS: BP 153/80
[2020-06-27] MEDS: AZITHROMYCIN INJECTION 250 MG in NS (IVPB) 250 ML IV SCH (18:56)
[2020-06-27] MEDS: CATHETER FLUSH 10 ML SYR IV PRN (18:56)
[2020-06-27 19:49] VITALS: BP 164/83
[2020-06-27] MEDS: GABAPENTIN 100 MG (NEURONTIN) CAP PO SCH (20:08)
[2020-06-28] VITALS (7 sets, daily range): BP systolic 138–167; BP diastolic 65–83
[2020-06-28] MEDS: MULTIVIT W/MINERALS TAB (THERAGRAN M) PO SCH (06:11)
[2020-06-28 07:07] LABS: CALCIUM 7.8 MG/DL (8.5-10.1)
[2020-06-28 07:08] LABS: TOTAL PROTEIN 5.4 GM/DL (6.4-8.2)
[2020-06-28 07:09] LABS: BILIRUBIN,TOTAL 0.4 MG/DL (0.1-1.0)
[2020-06-28] MEDS: ASPIRIN 81 MG CHEW (CHILDREN'S ASA) PO SCH (08:25)
[2020-06-28] MEDS: dexAMETHasone 6 MG TAB (DECADRON) PO SCH (08:25)
[2020-06-28] MEDS: PANTOPRAZOLE 40 MG (PROTONIX) TAB PO SCH (08:25)
[2020-06-28] MEDS: RT-ALBUTEROL INHALER HFA (VENTOLIN HFA) 18 GM IH SCH ×2 (09:06→19:36)
[2020-06-28] MEDS: cefTRIAXone FOR IV USE 1,000 MG in WATER (STERILE) FOR INJECTION 10 ML IV SCH (09:51)
[2020-06-28] MEDS: REMDESIVIR INJ 100 MG in NS (IVPB) 230 ML IV SCH (09:51)
[2020-06-28] MEDS: ENOXAPARIN 40 MG/0.4 ML (LOVENOX) SYR SQ SCH (09:51)
[2020-06-28] MEDS: CATHETER FLUSH 10 ML SYR IV PRN ×2 (09:53→18:17)
--- NOTE | 2020-06-28 10:10 | NUR ---
DR CHANG NOTIFIED OF PATIENT'S PERSISTENT COUGH AND HYPERTENSION. NEW ORDERS. PATIENT EDUCATED ON NEW ORDERS.
--- NOTE | 2020-06-28 10:15 | Physical Therapy Daily Note ---
PT Daily Note-Current Subjective Pt reclined in bed upon arrival to room, agreeable to therapy treatment at this time. Pt requesting need to use the restroom, "can I actually sit on the toilet and not the BSC." Pain Numeric Pain Scale: 0-No Pain Appearance Following session, pt up in chair with call light, tray and phone within reach. All needs met at this time., Mental Status Patient Orientation: Person, Place Transfers SCALE: Activities may be completed with or without assistive devices. 5-Cjgqbsmwfv-vicoprj completes the activity by him/herself with no assistance from a helper. 5-Set-up or Clean-up Assistance-helper sets up or cleans up; patient completes activity. [place] assists only prior to or following the activity. 4-Supervision or Touching Assistance-helper provides verbal cues and/or touching/steadying and/or contact guard assistance as patient completes activity. Assistance may be provided throughout the activity or intermittently. 3-Partial/Moderate Assistance-helper does LESS THAN HALF the effort. [place] lifts, holds or supports trunk or limbs, but provides less than half the effort. 2-Substantial/Maximal Assistance-helper does MORE THAN HALF the effort. [place] lifts or holds trunk or limbs and provides more than half the effort. 7-Olfwezuzb-smyiyf does ALL the effort. Patient does none of the effort to complete the activity. Or, the assistance of 2 or more helpers is required for the patient to complete the activity. If activity was not attempted, code reason: 7-Patient Refused. 9-Not Applicable-not attempted and the patient did not perform the activity before the current illness, exacerbation or injury. 10-Not Attempted due to Environmental Limitations-(lack of equipment, weather restraints, etc.). 88-Not Attempted due to Medical Conditions or Safety Concerns. Roll Left & Right (QC): 6 Lying to Sitting/Side of Bed(Q: 6 Sit to Stand (QC): 5 Toilet Transfer (QC): 5 Gait Training Walk 10 feet (QC): 6 Walk 50 ft with 2 Turns(QC): 6 Gait Assistive Device: FWW Treatments Pt able to get to EOB (I), then Mod (I) to stand, pt then ambulates into the bathroom and completes transfer (I). Pt unable to have BM, nursing notified, and then pt ambulates within room 50' back and forth before returning to recliner chair to sit. Pt sits with LEs elevated, and educated on importance of sitting up in chair during the day, as able. Assessment Current Status: Good Progress Pt continues to have decreased activity tolerance, will continue to progress as able. PT Short Term Goals Short Term Goals Time Frame: Jul 04, 2020 Roll Left & Right: 6 Sit to lyin Lying to sitting on side of be: 6 Sit to stand: 6 Chair/cgk-gp-ijbqv transfer: 6 Toilet transfer: 6 Car transfer: 6 Walk 10 feet: 6 Walk 50 feet with two turns: 6 Walk 150 feet: 6 PT Plan Problem List Problem List: Activity Tolerance, Functional Strength, Safety, Balance, Gait, Transfer, Bed Mobility, ROM Treatment/Plan Treatment Plan: Continue Plan of Care Treatment Plan: Education, Functional Activity Chi, Functional Strength, Gait, Safety, Therapeutic Exercise, Transfers Treatment Duration: Jul 04, 2020 Frequency: 6 times per week Estimated Hrs Per Day: .5 hour per day Patient and/or Family Agrees t: Yes Time/GCodes Time In: 930 Time Out: 950 Total Billed Treatment 1 visit FA (20') RODRIGUEZ WATERS PT Jun 28, 2020 10:15
[2020-06-28] MEDS: guaiFENesin/DM (ROBITUSSIN DM) 10 ML UDC PO PRN ×2 (10:50→15:26)
--- NOTE | 2020-06-28 10:54 | NUR ---
GUAIFENESIN GIVEN FOR C/O COUGH. PATIENT'S DAUGHTER, KERLINE SPOKE WITH THIS RN. RN ASSISTED PATIENT WITH PHONE. KERLINE REPORTS VINH IS HAVING DIFFICULTY HEARING ON LANDLINE. VOLUME TURNED UP AND PATIENT INSTRUCTED ON USE. DR CHANG HERE AT THIS TIME. PATIENT ACCURATELY DEMONSTRATES INDEPENDENT IS USE AND VERBALIZES USING. CONT TO MONITOR.
--- NOTE | 2020-06-28 11:47 | Progress Note - Hospitalist ---
Subjective HPI/CC On Admission Date Seen by Provider: Jun 28, 2020 Time Seen by Provider: 11:46 Pt is an 84yoCF with a PMH of HTN, HLD who presented to the ER due to weakness. She is somewhat unclear on her HPI so there are some limitations. She knew she had been on quarantine but was unsure why exactly. She didn't think that her d aughter have COVID but knew that she was on quarantine because of her daughter. She states that she has coughed for years and that is relatively unchanged but has been so tired and weak. I called and spoke with her daughter, Doreen, who clarified some details. They all went to a 1 year old's birthday constitution party on 06/15/20 and subsequently nearly all the attendants developed COVID. Doreen tested positive on 06/18. Doreen believes that her mom was doing ok until about 3 days ago when she got more fatigued and weak. Pt reported the ER that she had nausea, vomiting, and diarhhea along with fever and chills. She denied these to me. Subjective/Events-last exam Pt reports doing well. No complaints. Doing IS while I was in her room. Feeling better. Focused Exam Lactate Level 06/25/20 18:28: Lactic Acid Level 1.07 06/25/20 20:45: Lactic Acid Level 0.69 Time of Focused Exam: 19:38 Objective Exam Vital Signs Vital Signs Date Time Temp Pulse Resp B/P (MAP) Pulse Ox O2 Delivery O2 Flow Rate FiO2 06/28/20 11:15 36.3 67 18 144/73 (96) 96 Room Air 06/27/20 12:00 1.00 Capillary Refill : Less Than 3 SecondsLess Than 3 Seconds General Appearance: No Apparent Distress, Chronically ill, Thin Respiratory: Lungs Clear, No Respiratory Distress Cardiovascular: Regular Rate, Rhythm, No Murmur Neurologic/Psychiatric: Alert, Oriented x3 Results/Procedures Lab Laboratory Tests 06/28/20 06:31 Patient resulted labs reviewed. Imaging: Reviewed Imaging Report Assessment/Plan Assessment and Plan Assess & Plan/Chief Complaint Acute respiratory failure due to COVID19 CAP Spiculated lung mass On room air still It seems symptoms started on 06/23 per pt's and daughters history continue Decadron and remdesivir s/p 1 unit convalescent plasma Continue abx for secondary bacterial infection Blood cultures negative IS Lovenox Will need outpatient follow up of lung mass given known history of breast cancer Robitussin added for cough HTN BP well controlled, trend Debility PT/OT DV ppx: Lovenox Diagnosis/Problems Diagnosis/Problems (1) Acute respiratory failure (2) CAP (community acquired pneumonia) (3) Essential (primary) hypertension (4) HLD (hyperlipidemia) (5) History of breast cancer (6) COVID-19 Status: Acute (7) Physical debility Status: Acute (8) Lung mass Clinical Quality Measures DVT/VTE Risk/Contraindication: Risk Factor Score Per Nursin RFS Level Per Nursing on Admit: 3=High MANOHAR CHANG MD Jun 28, 2020 11:47
--- NOTE | 2020-06-28 15:22 | NUR ---
PATIENT'S SON, MAURICE GIFFORD, CALLED FOR UPDATE ON PATIENT. UPDATE GIVEN. ENCOURAGE TO CALL ANYTIME WITH QUESTIONS. APPRECIATIVE OF CARE.
--- NOTE | 2020-06-28 15:49 | NUR ---
ROBITUSSIN GIVEN ORDERED FOR C/O COUGH. SPO2 95% RA.
[2020-06-28] MEDS: AZITHROMYCIN INJECTION 250 MG in NS (IVPB) 250 ML IV SCH (18:16)
[2020-06-28] MEDS: GABAPENTIN 100 MG (NEURONTIN) CAP PO SCH (19:44)
[2020-06-29 04:27] VITALS: BP 160/83
[2020-06-29 06:04] LABS: ALBUMIN 2.7 GM/DL (3.2-4.5)
[2020-06-29 06:05] LABS: CHLORIDE 109 MMOL/L (98-107); POTASSIUM 3.8 MMOL/L (3.6-5.0); SODIUM 142 MMOL/L (135-145)
[2020-06-29 06:06] LABS: CALCIUM 7.2 MG/DL (8.5-10.1)
[2020-06-29 06:07] LABS: GLUCOSE 119 MG/DL (70-105); TOTAL PROTEIN 4.8 GM/DL (6.4-8.2)
[2020-06-29] MEDS: MULTIVIT W/MINERALS TAB (THERAGRAN M) PO SCH (06:07)
[2020-06-29 06:08] LABS: CARBON DIOXIDE 23 MMOL/L (21-32)
[2020-06-29 06:09] LABS: BILIRUBIN,TOTAL 0.4 MG/DL (0.1-1.0)
[2020-06-29 06:10] LABS: ALKALINE PHOSPHATASE 27 U/L (40-136)
[2020-06-29 06:11] LABS: CREATININE SERUM 0.88 MG/DL (0.60-1.30); GFR ESTIMATED > 60
[2020-06-29 06:12] LABS: BUN/CREATININE RATIO 23
[2020-06-29 06:14] LABS: ALANINE AMINOTRANSFERASE 14 U/L (0-55)
[2020-06-29 08:00] VITALS: BP 154/70
[2020-06-29] MEDS: dexAMETHasone 6 MG TAB (DECADRON) PO SCH (08:42)
[2020-06-29] MEDS: PANTOPRAZOLE 40 MG (PROTONIX) TAB PO SCH (08:42)
[2020-06-29] MEDS: ASPIRIN 81 MG CHEW (CHILDREN'S ASA) PO SCH (08:42)
[2020-06-29] MEDS: REMDESIVIR INJ 100 MG in NS (IVPB) 230 ML IV SCH (08:43)
[2020-06-29] MEDS: cefTRIAXone FOR IV USE 1,000 MG in WATER (STERILE) FOR INJECTION 10 ML IV SCH (08:43)
[2020-06-29] MEDS: ENOXAPARIN 40 MG/0.4 ML (LOVENOX) SYR SQ SCH (08:43)
[2020-06-29] MEDS: guaiFENesin/DM (ROBITUSSIN DM) 10 ML UDC PO PRN (09:41)
[2020-06-29] MEDS: RT-ALBUTEROL INHALER HFA (VENTOLIN HFA) 18 GM IH SCH ×2 (10:08→20:28)
[2020-06-29 12:00] VITALS: BP 158/76
--- NOTE | 2020-06-29 13:56 | Progress Note - Hospitalist ---
Subjective HPI/CC On Admission Date Seen by Provider: Jun 29, 2020 Time Seen by Provider: 13:54 Pt is an 84yoCF with a PMH of HTN, HLD who presented to the ER due to weakness. She is somewhat unclear on her HPI so there are some limitations. She knew she had been on quarantine but was unsure why exactly. She didn't think that her d aughter have COVID but knew that she was on quarantine because of her daughter. She states that she has coughed for years and that is relatively unchanged but has been so tired and weak. I called and spoke with her daughter, Doreen, who clarified some details. They all went to a 1 year old's birthday republican on 06/15/20 and subsequently nearly all the attendants developed COVID. Doreen tested positive on 06/18. Doreen believes that her mom was doing ok until about 3 days ago when she got more fatigued and weak. Pt reported the ER that she had nausea, vomiting, and diarhhea along with fever and chills. She denied these to me. Subjective/Events-last exam Pt reports doing well. Feeling better every day. Thinks shes doing ok with her strength as well. Focused Exam Time of Focused Exam: 19:38 Objective Exam Vital Signs Vital Signs Date Time Temp Pulse Resp B/P (MAP) Pulse Ox O2 Delivery O2 Flow Rate FiO2 06/29/20 12:00 35.6 61 16 158/76 (103) 96 Room Air 06/27/20 12:00 1.00 Capillary Refill : Less Than 3 SecondsLess Than 3 Seconds General Appearance: No Apparent Distress, Chronically ill, Thin Respiratory: Lungs Clear, No Respiratory Distress Cardiovascular: Regular Rate, Rhythm, No Murmur Neurologic/Psychiatric: Alert, Oriented x3 Results/Procedures Lab Laboratory Tests 06/29/20 05:40 Patient resulted labs reviewed. Imaging: Reviewed Imaging Report Assessment/Plan Assessment and Plan Assess & Plan/Chief Complaint Acute respiratory failure due to COVID19 CAP Spiculated lung mass On room air still It seems symptoms started on 06/23 per pt's and daughters history continue Decadron and remdesivir (will complete course tomorrow) s/p 1 unit convalescent plasma Continue abx for secondary bacterial infection Blood cultures negative IS Lovenox Will need outpatient follow up of lung mass given known history of breast cancer Robitussin for cough HTN BP well controlled, trend Debility PT/OT DV ppx: Lovenox Diagnosis/Problems Diagnosis/Problems (1) Acute respiratory failure (2) CAP (community acquired pneumonia) (3) Essential (primary) hypertension (4) HLD (hyperlipidemia) (5) History of breast cancer (6) COVID-19 Status: Acute (7) Physical debility Status: Acute (8) Lung mass Clinical Quality Measures DVT/VTE Risk/Contraindication: Risk Factor Score Per Nursin RFS Level Per Nursing on Admit: 3=High MANOHAR CHANG MD Jun 29, 2020 13:55
[2020-06-29 16:34] VITALS: BP 170/83
[2020-06-29] MEDS: AZITHROMYCIN INJECTION 250 MG in NS (IVPB) 250 ML IV SCH (17:58)
[2020-06-29 19:20] VITALS: BP 168/79
[2020-06-29] MEDS: GABAPENTIN 100 MG (NEURONTIN) CAP PO SCH (19:51)
[2020-06-30 00:31] VITALS: BP 171/81
[2020-06-30 05:00] VITALS: BP 140/70
[2020-06-30] MEDS: MULTIVIT W/MINERALS TAB (THERAGRAN M) PO SCH (05:30)
[2020-06-30 06:22] LABS: ALBUMIN 2.9 GM/DL (3.2-4.5); POTASSIUM 3.5 MMOL/L (3.6-5.0)
[2020-06-30 06:24] LABS: CALCIUM 7.6 MG/DL (8.5-10.1)
[2020-06-30 06:25] LABS: TOTAL PROTEIN 5.3 GM/DL (6.4-8.2)
[2020-06-30 06:27] LABS: BILIRUBIN,TOTAL 0.4 MG/DL (0.1-1.0)
[2020-06-30 06:28] LABS: CREATININE SERUM 0.95 MG/DL (0.60-1.30)
[2020-06-30] MEDS: RT-ALBUTEROL INHALER HFA (VENTOLIN HFA) 18 GM IH SCH (07:29)
[2020-06-30 08:00] VITALS: BP 168/79
[2020-06-30] MEDS: dexAMETHasone 6 MG TAB (DECADRON) PO SCH (08:22)
[2020-06-30] MEDS: ASPIRIN 81 MG CHEW (CHILDREN'S ASA) PO SCH (08:22)
[2020-06-30] MEDS: PANTOPRAZOLE 40 MG (PROTONIX) TAB PO SCH (08:22)
[2020-06-30] MEDS: REMDESIVIR INJ 100 MG in NS (IVPB) 230 ML IV SCH (08:23)
[2020-06-30] MEDS: cefTRIAXone FOR IV USE 1,000 MG in WATER (STERILE) FOR INJECTION 10 ML IV SCH (08:23)
[2020-06-30] MEDS: ENOXAPARIN 40 MG/0.4 ML (LOVENOX) SYR SQ SCH (08:24)
--- NOTE | 2020-06-30 10:31 | Physical Therapy Progress Note ---
Therapy Progress Note Patient is up in room on RA without difficulty. Per RN, patient is up to commode independently and up in room with nursing without AD. PT to dismiss patient from services at this time and nursing to continue with mobilization. NAT YIP PT Jun 30, 2020 10:31
[2020-06-30] MEDS ORDERED: CEFD300C3 PO (11:00)
--- NOTE | 2020-06-30 11:28 | Discharge Summary ---
Discharge Summary Reconcile Patient Problems Problems Reviewed?: Yes Instructions for Patient Via [facility] Ent[facility], Assessment/Instructions Take medications as prescribed. Complete your course of antibiotics even if you're feeling better. You are being set up with home health care. Follow-up with your primary care physician in a couple weeks. Follow-up with pulmonology in a couple weeks due to possible lung mass. Physician to follow Patient: Silvana Discharge Diet for Home: No Restrictions Hospital Course Date of Admission: Jun 25, 2020 at 20:03 Admission Diagnosis : Acute respiratory failure due to COVID-19 Family Physician/Provider: Zachery Pina MD Date of Discharge: 06/30/20 Discharge Diagnosis: Acute respiratory failure due to COVID-19, Pneumonia, Lung mass Hospital Course: Nahomi Elizabeth is an 84-year-old female who was admitted with acute respiratory failure to [facility] She was treated with Decadron, Remdesivir, and convalescent plasma. She also had a superimposed bacterial pneumonia which was treated with IV antibiotics while in the hospital and she was transitioned to oral Omnicef on discharge. Her x-ray showed a possible spiculated lung mass for which she is being set up with Dr. Pino, pulmonology, for follow-up. She should also follow up with her primary care physician. She was discharged home with home health care. She was not requiring any supplemental oxygen at the time of discharge. Labs and Pending Lab Test: Laboratory Tests 06/30/20 05:51: Sodium Level 139, Potassium Level 3.5L, Chloride Level 106, Carbon Dioxide Level 24, Anion Gap 9, Blood Urea Nitrogen 18, Creatinine 0.95, Estimat Glomerular Filtration Rate 56, BUN/Creatinine Ratio 19, Glucose Level 89, Calcium Level 7.6L, Corrected Calcium 8.5, Total Bilirubin 0.4, Aspartate Amino Transf (AST/SGOT) 27, Alanine Aminotransferase (ALT/SGPT) 18, Alkaline Phosphatase 30L, Total Protein 5.3L, Albumin 2.9L 06/30/20 08:50: Lab Scanned Report Transfusion Reaction Form Microbiology 06/25/20 Urine Culture - Final, Complete NO GROWTH 06/25/20 Blood Culture - Preliminary, Resulted No growth 06/25/20 Influenza Types A,B Antigen (IRA) - Final, Complete Home Meds Active Cefdinir 300 Mg Capsule 300 Mg PO BID 5 Days Reported Calcium (Calcium Carbonate) 600 Mg Tablet 600 Mg PO DAILY Aspirin EC (Aspirin) 81 Mg Tablet.dr 81 Mg PO DAILY Vitamin D3 (Cholecalciferol (Vitamin D3)) 25 Mcg Capsule 25 Mcg PO DAILY Tamoxifen Citrate 20 Mg Tablet 20 Mg PO DAILY Vision Plus Lutein Vitamin Tab (Multivitamin W-Minerals/Lutein) 1 Each Tablet 1 Tab PO BID Gabapentin 100 Mg Capsule 100 Mg PO HS Irbesartan 75 Mg Tablet 75 Mg PO DAILY Metoprolol Succinate 50 Mg Tab.er.24h 50 Mg PO DAILY Patient Allergies: Coded Allergies: azathioprine (Verified Allergy, Unknown, UNABLE TO REMEMBER WHAT REACTION WAS, 10/30/18) meperidine HCl (Verified Allergy, Unknown, 11/18/15) Height (Feet): 5 Height (Inches): 2.00 Weight (Pounds): 121 Weight (Ounces): 8.0 Home Health Need/Face to Face Date of Face to Face: Jun 30, 2020 Clinical Findings: Generalized weakness and fatigue, Muscle weakness I have seen Pt [id number]: Yes Discharged To: Home Diagnosis/Conditions: COVID-19 Debility Problems/Diagnosis/Condition: (1) COVID-19 (2) Physical debility Patient is Homebound due to: Muscle weakness Homebound Status Due to the above stated illness, injury or surgical procedure (medical condition or diagnosis) and associated clinical findings, the patient is homebound because of his/her inability to leave home except with aid of a supportive device and/or person AND leaving the home requires a considerable and taxing effort or is medically contraindicated. Pt req the following assistanc: Aid of another person Home Health Nursing Orders Home Health Services Order: Nursing Services, Metal Pourer-Evaluate & Treat, Physical Therapy-Evaluate & Treat Therapy Orders Therapy Orders: OT (must have SN or PT order), Physical Therapy Therapy Specific Orders: Eval assistive deivces, Teach enviro modifications/safety, Gait training, Increase strength/endurance Certify Stmt I certify that this patient is under my care and that I, a nurse practitioner or a physician; a property management assistant working with me, had a face to face encounter that - meets the physician face to face encounter requirements with this patient as dated. Discharge Physical Exam General: Alert, Oriented X3, Cooperative, No Acute Distress HEENT: Atraumatic, EOMI, Mucous Memb Moist/[place] Lungs: Clear to Auscultation, Normal Air Movement Heart: Regular Rate, Normal S1, Normal S2, No Murmurs Abdomen: Normal Bowel Sounds, Soft, No Tenderness Extremities: No Edema, No Tenderness/Swelling Skin: No Rashes, No Significant Lesion Neuro: Normal Speech, Other (motor weakness) Psych/Mental Status: Mental Status NL, Mood NL ESVIN HUANG MD Jun 30, 2020 11:17
[2020-06-30 12:00] VITALS: BP 171/81
--- NOTE | 2020-06-30 13:25 | NUR ---
Arrangements completed for pt discharge home to have Home Health care. Her 90 year old has [facility] and she would like to receive the same service provider. Also pt is to see Dr. Pino for follow-up and his office notified and contact pt's daughter for follow-p appt.
[2020-06-30 16:00] VITALS: BP_SYST 160; BP_SYST 171; BP_SYST 183; BP_DIAS 78; BP_DIAS 81; BP_DIAS 84
== END 2020-06-30 17:05 | disposition home health service (06) | DRG 177 ==
LOC: EDUNIT# 18:22 → ER 18:24 → 4TH 20:03
PROVIDERS: ADMIT Internal Medicine; ATTEND Internal Medicine
DX: U07.1 COVID-19 (principal); J96.01 Acute respiratory failure with hypoxia; J12.89 Other viral pneumonia; J15.9 Unspecified bacterial pneumonia; R91.1 Solitary pulmonary nodule; E86.0 Dehydration; R53.81 Other malaise; S39.82XA Other specified injuries of lower back, initial encounter; I10 Essential (primary) hypertension; G62.9 Polyneuropathy, unspecified; K21.9 Gastro-esophageal reflux disease without esophagitis; M19.91 Primary osteoarthritis, unspecified site; M54.9 Dorsalgia, unspecified; H35.30 Unspecified macular degeneration; W19.XXXA Unspecified fall, initial encounter; Z86.010 Personal history of colon polyps; Z85.3 Personal history of malignant neoplasm of breast; Z91.81 History of falling; Z96.651 Presence of right artificial knee joint; E78.5 Hyperlipidemia, unspecified
CPT/HCPCS: 36415; 51701; 71045; 72220; 80053; 81000; 82805; 83605; 84145; 85025; 85027; 85379; 85610; 85730; 86141; 86900; 86901; 87040; 87088; 87635; 87804; 90662; 94640; 94664; 94760; 96361; 96365; 96375

== ENCOUNTER → 2020-07-16 | Outpatient (CLI) | payer MEDICARE, OTHER ==
[~2020-07-16] MED LIST changes: +ASPI-1238 PO; +CEFD300C3 PO; +CHOL100048 PO; +CLC600T PO
--- NOTE | 2020-07-16 16:25 | Diagnostic Imaging Report ---
EXAMINATION: CT Chest without contrast. TECHNIQUE: Multiple contiguous axial images were obtained through the chest without the use of intravenous contrast. All CT scans use one or more of the following dose optimizing techniques: automated exposure control, MA and/or KvP adjustment based on a patient size and exam type, or iterative reconstruction. HISTORY: Cough, lung nodule follow-up COMPARISON: CT chest 07/23/2013. Chest radiograph 06/26/2020 FINDINGS: Thyroid: Heterogeneous appearance of the thyroid gland, unchanged from 07/23/2013. Mediastinum: Heart size is normal without significant pericardial effusion. Calcifications of the aorta and coronary vessels. Thoracic aorta is normal in caliber. No suspicious lymphadenopathy. Lungs and airways: Patchy consolidation throughout both lungs. No pleural effusion or pneumothorax. Bibasilar dependent atelectasis. The airways are normal. Upper abdomen: The subphrenic structures are normal. Musculoskeletal: Degenerative changes of the spine without suspicious osseous lesion or compression fracture. IMPRESSION: 1. Patchy consolidation throughout both lungs compatible with a multifocal pneumonia. Dictated by: Dictated on workstation # [id number]
== END ==
LOC: RAD 14:15
PROVIDERS: ATTEND Family Medicine
DX: R91.8 Other nonspecific abnormal finding of lung field (principal)
CPT/HCPCS: 71250

== ENCOUNTER → 2020-09-09 | Outpatient (CLI) | payer MEDICARE, OTHER ==
[2020-09-09 10:46] LABS: BASOPHILS % (AUTO) 1 % (0-10); EOSINOPHILS # (AUTO) 0.1 10^3/uL (0.0-0.3); EOSINOPHILS % (AUTO) 2 % (0-10); HEMATOCRIT 37 % (35-52); LYMPHOCYTES # (AUTO) 1.2 10^3/uL (1.0-4.0); LYMPHOCYTES % (AUTO) 26 % (12-44); MEAN CORPUSCULAR HEMOGLOBIN 32 pg (25-34); MEAN CORPUSCULAR HGB CONC 32 g/dL (32-36); MEAN CORPUSCULAR VOLUME 99 fL (80-99); MEAN PLATELET VOLUME 9.3 fL (9.0-12.2); MONOCYTES # (AUTO) 0.6 10^3/uL (0.0-1.0); MONOCYTES % (AUTO) 12 % (0-12); NEUTROPHILS # (AUTO) 2.9 10^3/uL (1.8-7.8); NEUTROPHILS % (AUTO) 60 % (42-75); PLATELET COUNT 191 10^3/uL (130-400); WHITE BLOOD COUNT 4.7 10^3/uL (4.3-11.0)
[2020-09-09 11:04] LABS: ALBUMIN 3.6 GM/DL (3.2-4.5); BILIRUBIN,TOTAL 0.4 MG/DL (0.1-1.0); CALCIUM 8.8 MG/DL (8.5-10.1); CREATININE SERUM 1.47 MG/DL (0.60-1.30); POTASSIUM 4.1 MMOL/L (3.6-5.0); TOTAL PROTEIN 6.3 GM/DL (6.4-8.2)
== END ==
LOC: ONC 10:13
PROVIDERS: ATTEND Internal Medicine Hematology & Oncology
DX: C50.412 Malignant neoplasm of upper-outer quadrant of left female breast (principal); I10 Essential (primary) hypertension; M47.816 Spondylosis without myelopathy or radiculopathy, lumbar region; M17.0 Bilateral primary osteoarthritis of knee; M16.11 Unilateral primary osteoarthritis, right hip; M16.12 Unilateral primary osteoarthritis, left hip; D64.9 Anemia, unspecified; E78.2 Mixed hyperlipidemia; K27.9 Peptic ulcer, site unspecified, unspecified as acute or chronic, without hemorrhage or perforation; Z86.16 Personal history of COVID-19; Z98.890 Other specified postprocedural states; Z79.82 Long term (current) use of aspirin
CPT/HCPCS: 80053; 85025; G0463; 99213

== ENCOUNTER → 2021-03-10 | Outpatient (CLI) | payer MEDICARE, OTHER ==
[~2021-03-10] MED LIST changes: +CALC600T91 PO; -CLC600T PO; -ENOX30DI9 SQ; +ENXP30I.3 SQ; -OMEP40CA27 PO; +OMEP40CA6 PO
[2021-03-10 11:00] LABS: BASOPHILS % (AUTO) 1 % (0-10); EOSINOPHILS # (AUTO) 0.1 10^3/uL (0.0-0.3); EOSINOPHILS % (AUTO) 1 % (0-10); HEMATOCRIT 38 % (35-52); HEMOGLOBIN 12.7 g/dL (11.5-16.0); LYMPHOCYTES # (AUTO) 1.3 10^3/uL (1.0-4.0); LYMPHOCYTES % (AUTO) 28 % (12-44); MEAN CORPUSCULAR HEMOGLOBIN 33 pg (25-34); MEAN CORPUSCULAR HGB CONC 33 g/dL (32-36); MEAN CORPUSCULAR VOLUME 98 fL (80-99); MEAN PLATELET VOLUME 9.5 fL (9.0-12.2); MONOCYTES # (AUTO) 0.5 10^3/uL (0.0-1.0); MONOCYTES % (AUTO) 11 % (0-12); NEUTROPHILS # (AUTO) 2.8 10^3/uL (1.8-7.8); NEUTROPHILS % (AUTO) 59 % (42-75); PLATELET COUNT 183 10^3/uL (130-400); WHITE BLOOD COUNT 4.7 10^3/uL (4.3-11.0)
[2021-03-10 11:21] LABS: CREATININE SERUM 1.16 MG/DL (0.60-1.30); POTASSIUM 3.7 MMOL/L (3.6-5.0)
[2021-03-10 11:22] LABS: ALBUMIN 3.6 GM/DL (3.2-4.5); BILIRUBIN,TOTAL 0.5 MG/DL (0.1-1.0); CALCIUM 8.7 MG/DL (8.5-10.1); TOTAL PROTEIN 6.3 GM/DL (6.4-8.2)
== END ==
LOC: ONC 10:50
PROVIDERS: ATTEND Internal Medicine Hematology & Oncology
DX: Z12.31 Encounter for screening mammogram for malignant neoplasm of breast (principal); I10 Essential (primary) hypertension; E78.2 Mixed hyperlipidemia; D64.9 Anemia, unspecified; M47.819 Spondylosis without myelopathy or radiculopathy, site unspecified; M16.0 Bilateral primary osteoarthritis of hip; M17.0 Bilateral primary osteoarthritis of knee; Z86.16 Personal history of COVID-19; Z98.890 Other specified postprocedural states; Z85.3 Personal history of malignant neoplasm of breast; Z90.12 Acquired absence of left breast and nipple
CPT/HCPCS: 80053; 85025; G0463; 99213

== ENCOUNTER → 2021-04-20 | Outpatient (CLI) | payer MEDICARE, OTHER | LOC: CARD 11:30 | PROVIDERS: ATTEND Internal Medicine Cardiovascular Disease | DX: I10 Essential (primary) hypertension (principal); I25.10 Atherosclerotic heart disease of native coronary artery without angina pectoris; I07.1 Rheumatic tricuspid insufficiency | CPT/HCPCS: 93306 ==

== ENCOUNTER → 2021-09-15 | Outpatient (CLI) | payer MEDICARE, OTHER ==
--- NOTE | 2021-09-15 17:59 | Diagnostic Imaging Report ---
INDICATION: Routine screening. COMPARISON is made with prior mammograms from 05/12/2020 and 05/02/2019. Unilateral right 2-D and 3-D screening mammography was performed with CAD. The right breast is heterogeneously dense, limiting the sensitivity of mammography. There are benign calcifications in the right breast. No mass or malignant-appearing microcalcifications are seen. Right axilla is unremarkable. IMPRESSION: BI-RADS Category 2 No mammographic features suspicious for malignancy are identified. ACR BI-RADS Category 2: Benign findings. Result letter will be mailed to the patient. Note: At least 10% of breast cancer is not imaged by mammography. Dictated by: Dictated on workstation # [id number]
== END ==
LOC: RAD 13:30
PROVIDERS: ATTEND Internal Medicine Hematology & Oncology
DX: Z12.31 Encounter for screening mammogram for malignant neoplasm of breast (principal); Z85.3 Personal history of malignant neoplasm of breast
CPT/HCPCS: 77063

== ENCOUNTER → 2021-10-14 | Outpatient (CLI) | payer MEDICARE, OTHER ==
[2021-10-14 14:39] LABS: BASOPHILS # (AUTO) 0.1 10^3/uL (0.0-0.1); BASOPHILS % (AUTO) 1 % (0-10); EOSINOPHILS # (AUTO) 0.2 10^3/uL (0.0-0.3); EOSINOPHILS % (AUTO) 2 % (0-10); HEMATOCRIT 38 % (35-52); HEMOGLOBIN 12.7 g/dL (11.5-16.0); LYMPHOCYTES # (AUTO) 1.2 10^3/uL (1.0-4.0); LYMPHOCYTES % (AUTO) 19 % (12-44); MEAN CORPUSCULAR HEMOGLOBIN 33 pg (25-34); MEAN CORPUSCULAR HGB CONC 34 g/dL (32-36); MEAN CORPUSCULAR VOLUME 97 fL (80-99); MEAN PLATELET VOLUME 9.6 fL (9.0-12.2); MONOCYTES # (AUTO) 0.6 10^3/uL (0.0-1.0); MONOCYTES % (AUTO) 9 % (0-12); NEUTROPHILS # (AUTO) 4.4 10^3/uL (1.8-7.8); NEUTROPHILS % (AUTO) 68 % (42-75); PLATELET COUNT 230 10^3/uL (130-400); WHITE BLOOD COUNT 6.4 10^3/uL (4.3-11.0)
[2021-10-14 14:58] LABS: ALBUMIN 3.8 GM/DL (3.2-4.5); BILIRUBIN,TOTAL 0.4 MG/DL (0.1-1.0); CREATININE SERUM 1.6 MG/DL (0.60-1.30); POTASSIUM 4.4 MMOL/L (3.6-5.0); TOTAL PROTEIN 6.6 GM/DL (6.4-8.2)
== END ==
LOC: ONC 14:29
PROVIDERS: ATTEND Internal Medicine Hematology & Oncology
DX: Z12.31 Encounter for screening mammogram for malignant neoplasm of breast (principal); I10 Essential (primary) hypertension; M81.0 Age-related osteoporosis without current pathological fracture; E78.2 Mixed hyperlipidemia; Z85.3 Personal history of malignant neoplasm of breast; Z90.12 Acquired absence of left breast and nipple
CPT/HCPCS: 80053; 85025; G0463; 36415; 99213

== ENCOUNTER → 2022-10-08 | Outpatient (CLI) | payer MEDICARE, OTHER ==
--- NOTE | 2022-10-08 15:43 | Diagnostic Imaging Report ---
Indication: Routine screening. Comparison is made with prior mammograms from 09/15/2021 and 05/12/2020. Unilateral right 2-D and 3-D screening mammography was performed with CAD. Right breast is heterogeneously dense, limiting the sensitivity of mammography. There are scattered calcifications in the right breast. No mass or malignant-appearing microcalcifications are seen. Right axilla is unremarkable. IMPRESSION: BI-RADS Category 2 No mammographic features suspicious for malignancy are identified. ACR BI-RADS Category 2: Benign findings. Result letter will be mailed to the patient. Note: At least 10% of breast cancer is not imaged by mammography. Dictated by: Dictated on workstation # [id number]
== END ==
LOC: RAD 14:21
PROVIDERS: ATTEND Internal Medicine Hematology & Oncology
DX: Z12.31 Encounter for screening mammogram for malignant neoplasm of breast (principal); Z85.3 Personal history of malignant neoplasm of breast
CPT/HCPCS: 77063

== ENCOUNTER → 2022-10-11 | Outpatient (CLI) | payer MEDICARE, OTHER ==
[2022-10-11 14:22] LABS: BASOPHILS # (AUTO) 0.1 10^3/uL (0.0-0.1); BASOPHILS % (AUTO) 1 % (0-10); EOSINOPHILS # (AUTO) 0.1 10^3/uL (0.0-0.3); EOSINOPHILS % (AUTO) 1 % (0-10); HEMATOCRIT 36 % (35-52); HEMOGLOBIN 12.8 g/dL (11.5-16.0); LYMPHOCYTES # (AUTO) 1.4 10^3/uL (1.0-4.0); LYMPHOCYTES % (AUTO) 24 % (12-44); MEAN CORPUSCULAR HEMOGLOBIN 34 pg (25-34); MEAN CORPUSCULAR HGB CONC 36 g/dL (32-36); MEAN CORPUSCULAR VOLUME 95 fL (80-99); MEAN PLATELET VOLUME 9.5 fL (9.0-12.2); MONOCYTES # (AUTO) 0.6 10^3/uL (0.0-1.0); MONOCYTES % (AUTO) 11 % (0-12); NEUTROPHILS # (AUTO) 3.6 10^3/uL (1.8-7.8); NEUTROPHILS % (AUTO) 63 % (42-75); PLATELET COUNT 234 10^3/uL (130-400); WHITE BLOOD COUNT 5.7 10^3/uL (4.3-11.0)
[2022-10-11 15:16] LABS: ALBUMIN 3.8 GM/DL (3.2-4.5); BILIRUBIN,TOTAL 0.5 MG/DL (0.1-1.0); CALCIUM 9.9 MG/DL (8.5-10.1); CREATININE SERUM 1.42 MG/DL (0.60-1.30); POTASSIUM 4.1 MMOL/L (3.6-5.0); TOTAL PROTEIN 6.5 GM/DL (6.4-8.2)
== END ==
LOC: ONC 14:03
PROVIDERS: ATTEND Internal Medicine Hematology & Oncology
DX: C50.419 Malignant neoplasm of upper-outer quadrant of unspecified female breast (principal); I10 Essential (primary) hypertension; M47.816 Spondylosis without myelopathy or radiculopathy, lumbar region; M16.0 Bilateral primary osteoarthritis of hip; M17.0 Bilateral primary osteoarthritis of knee; D64.9 Anemia, unspecified; N18.9 Chronic kidney disease, unspecified; E78.2 Mixed hyperlipidemia; I25.10 Atherosclerotic heart disease of native coronary artery without angina pectoris
CPT/HCPCS: 80053; 85025

== ENCOUNTER → 2022-10-25 | Outpatient (CLI) | payer MEDICARE, OTHER ==
[~2022-10-25] MED LIST changes: +CATHETER FLUSH 10 ML SYR IV PRN; +HOLD METFORMIN - RECEIVED CONTRAST 20 ML VIAL IV SCH; +IOHEXOL 350 MG/ML 100 ML (OMNIPAQUE 350) VIAL IV ONE; +NS 100 ML (IVPB) BAG IV ONE
--- NOTE | 2022-10-25 15:28 | Diagnostic Imaging Report ---
PROCEDURE: CT chest with contrast only. TECHNIQUE: Multiple contiguous axial images were obtained through the chest after administration of intravenous contrast. Auto Exposure Controls were utilized during the CT exam to meet ALARA standards for radiation dose reduction. DATE: October 25, 2022. COMPARISON: CT chest July 16, 2020. INDICATION: 87-year-old female, breast cancer status post left mastectomy. FINDINGS: There is a 4 mm noncalcified right lower lobe pulmonary nodule which is unchanged on axial image 69. There is no new or enlarging pulmonary nodule. There is mild dependent atelectasis in the right and left lower lobes. There is no pneumothorax. There is no pleural effusion. The heart is not enlarged. There is no pericardial effusion. There is no identified mediastinal, hilar, or axillary lymph node meeting CT size criteria for adenopathy. There are surgical clips in the left axilla and also in the left chest. The patient is status post left mastectomy. There is cholelithiasis without evidence of acute cholecystitis in the included [id number]. The imaged portions of the upper abdomen are otherwise grossly unremarkable. There is no identified acute bony abnormality. IMPRESSION: CT CHEST. 1. 4 mm right lower lobe pulmonary nodule which is unchanged since at least July 16, 2020 compatible with benign etiology. 2. No evidence of metastatic disease at the level of the chest. 3. Status post left mastectomy. Dictated by: Dictated on workstation # [id number]
== END ==
LOC: RAD 11:24
PROVIDERS: ATTEND Internal Medicine Hematology & Oncology
DX: C50.812 Malignant neoplasm of overlapping sites of left female breast (principal); R91.1 Solitary pulmonary nodule; Z90.12 Acquired absence of left breast and nipple
CPT/HCPCS: 71260

== ENCOUNTER 2022-11-01 13:01 | Outpatient (RCR) | payer MEDICARE, OTHER ==
[~2022-11-01 13:01] MED LIST changes: -CATHETER FLUSH 10 ML SYR IV PRN; -HOLD METFORMIN - RECEIVED CONTRAST 20 ML VIAL IV SCH; -IOHEXOL 350 MG/ML 100 ML (OMNIPAQUE 350) VIAL IV ONE; -NS 100 ML (IVPB) BAG IV ONE
== END 2022-11-05 | disposition home or self-care (01) ==
LOC: ONC 13:01
PROVIDERS: ATTEND Internal Medicine Hematology & Oncology
DX: Z53.9 Procedure and treatment not carried out, unspecified reason (principal)